=== PATIENT | female | born 1990 | race Caucasian/White ===

== ENCOUNTER 2023-10-22 22:01 | Emergency (ER) | payer OTHER, SELFPAY ==
[2023-10-22 22:02] VITALS: BP 146/94; PULSE 97; RESP 16; TEMP 36.5; O2SAT 99; BMI 43.6
--- NOTE | 2023-10-22 22:15 | RAD_ITS ---
STUDY: X-RAY - UNILATERAL RIBS ( RIGHT ) WITH CHEST REASON FOR EXAM: Female, 33 years old. Pain TECHNIQUE - RIBS: 4 view(s) of the ribs. TECHNIQUE - CHEST: Single PA view of the chest. COMPARISON: None. FINDINGS - RIBS: Normal visualized ribs without a demonstrated fracture. FINDINGS - CHEST: The lungs are clear and underexpanded. There is no demonstrated pleural abnormality. Normal size heart. Normal mediastinum and milan. Normal visualized pulmonary arteries. Normal visualized aortic arch and descending thoracic aorta. Normal visualized thoracic spine. Normal visualized ribs, clavicles, and shoulders. Right upper quadrant surgical clips seen. RAD/Ribs Uni Min 3V w/PA Chest IMPRESSION: RIBS: No evidence of right-sided rib fracture. CHEST: Normal x-ray examination of the chest. Electronically Signed: Josephine Cho MD at 22:54 EST ,
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
[2023-10-22] MEDS: Ibuprofen 400 MG Tablet 800 MG PO (22:19)
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
--- OUTSIDE RECORDS SUMMARY | 2023-10-22 22:27 | XMS RPT_ITS | CCD ---
Author Name Unknown Address [address] [place] [address] Organization [facility] Care Team Providers Care Hand Buffer Name Role Phone INFANTE, SAMER Unavailable Unavailable INFANTE, SAMER Unavailable Unavailable [place] DO, Opal A Primary Care Provider [phone] Theo GARCIA, Keyanna Unavailable [facility], [place] Unavailable [phone] [place] DO, Opal A Primary Care Provider [phone] Theo GARCIA, Keyanna Unavailable [facility], [place] Unavailable [phone] [place] DO, Opal A Primary Care Provider [facility], [place] Unavailable [phone] [place] DO, Opal A Primary Care Provider [phone] Theo GARCIA, Keyanna Unavailable [facility], [place] Unavailable [phone] [facility] [phone] CLOUD, OPAL A Primary Care Unavailable GISSELLE SPRAGUE Referring Unavailabl e CLOUD, OPAL A Referring Unavailable CLOUD, OPAL A Primary Care Unavailable CLOUD, OPAL A Primary Care Unavailable TILLMAN, LAVISA Referring Unavailable ESME CALLEJAS Attending Unavailable CLOUD, OPAL A Primary Care Unavailable CLOUD, OPAL A Primary Care Unavailable ESME CALLEJAS Attending Unavailable CLOUD, OPAL A Primary Care Unavailable CLOUD, OPAL A Primary Care Unavailable GISSELLE SPRAGUE Referring Unavailabl e RUBA GONZALEZ Attending Unavailable CLOUD, OPAL A Primary Care Unavailable KATHY FRANCO Referring Unavailable CLOUD, OPAL A Primary Care Unavailable RUBA GONZALEZ Attending Unavailable CLOUD, OPAL A Primary Care Unavailable TILLMAN, LAVISA Referring Unavailable TILLMAN, LAVISA Attending Unavailable CLOUD, OPAL A Primary Care Unavailable MURRAY, JIHAD Attending Unavailable CLOUD, OPAL A Primary Care Unavailable CLOUD, OPAL A Primary Care Unavailable GISSELLE SPRAGUE S Attending Unavailabl e CLOUD, OPAL A Primary Care Unavailable BRITTA, ESME Referring Unavailable CLOUD, OPAL A Primary Care Unavailable BRITTA, ESME Referring Unavailable BRITTA, ESME Attending Unavailable CLOUD, OPAL A Primary Care Unavailable CLOUD, OPAL A Primary Care Unavailable KATHY FRANCO Referring Unavailable CLOUD, OPAL A Primary Care Unavailable CARLOS, MOHAMED M Referring Unavailable CLOUD, OPAL A Primary Care Unavailable EUGENE, CHRISTIANA Esquivel Attending Unavailable JONATHON, PAULA Referring Unavailable CLOUD, OPAL A Primary Care Unavailable CLOUD, OPAL A Attending Unavailable CLOUD, OPAL A Primary Care Unavailable AINSLEY ROJO Attending Unavailable CLOUD, OPAL A Primary Care Unavailable MURRAY, JIHAD Referring Unavailable CLOUD, OPAL A Primary Care Unavailable CARLOS, CARRIEAMED M Referring Unavailable CLOUD, OPAL A Primary Care Unavailable GISSELLE SPRAGUE Referring Unavailabl e CLOUD, OPAL A Primary Care Unavailable CLOUD, OPAL A Attending Unavailable CLOUD, OPAL A Primary Care Unavailable CLOUD, OPAL A Referring Unavailable QUEENER, KATHY Attending Unavailable Medications Current Medications Medication Drug Class(es) Dates Sig (Normalized) Sig (Original) ALPRAZolam 0.5 mg oral tablet (20 sources) Benzodiazepine Start: 04-12-2023 End: 07-11-2023 take 1 tablet by mouth twice daily as needed ALPRAZolam (XANAX) 0.5 mg tablet Indications: JONATHAN (generalized anxiety disorder) Take 1 tablet by mouth twice daily as needed for up to 90 days. 60 tablet 2 04/12/2023 07/11/2023 Active Completed/Discontinued Medications Medication Drug Class(es) Dates Sig (Normalized) Sig (Original) [id number] 200 actuat albuterol 0.09 mg/actuat metered dose inhaler (20 sources) beta2-Adrenergic Agonist Start: 08-31-2022 take 2 puff(s) by inhalation every four hours as needed albuterol HFA (PROAIR HFA) 90 mcg/actuation inhaler Inhale 2 Puffs as instructed every 4 hours as needed. 18 g 2 08/31/2022 Active Problems Active Problems Problem Classification Problem Date Documented Date Episodic/Chronic Anxiety disorders (20 sources) Mixed anxiety and depressive disorder; Translations: [Anxiety disorder, unspecified] Onset: 08-31-2022 Chronic Asthma (20 sources) Asthma; Translations: [Unspecified asthma, uncomplicated] Onset: 08-06-2013 05-11-2020 Chronic Cardiac dysrhythmias (2 sources) Inappropriate sinus tachycardia; Translations: [Inappropriate sinus tachycardia] Onset: 09-07-2023 07-06-2023 Chronic Diabetes mellitus with complications (7 sources) Type 2 diabetes mellitus; Translations: [Type 2 diabetes mellitus with hyperglycemia] Onset: 06-15-2023 Chronic Diabetes mellitus without complication (20 sources) Diabetes mellitus type 2 without retinopathy; Translations: [Type 2 diabetes mellitus without complications] Onset: 12-18-2013 12-22-2020 Chronic Disorders of lipid metabolism (7 sources) Mixed hyperlipidemia; Translations: [Mixed hyperlipidemia] Chronic Disorders usually diagnosed in infancy, childhood, or adolescence (20 sources) Attention deficit hyperactivity disorder, predominantly inattentive type; Translations: [Other specified behavioral and emotional disorders with onset usually occurring in childhood and adolescence] Onset: 08-31-2022 Chronic Headache; including migraine (3 sources) New daily persistent headache; Translations: [New daily persistent headache (NDPH)] Onset: 08-31-2022 Chronic Headache; including migraine (2 sources) Headache; Translations: [Headaches] Episodic Hepatitis (20 sources) Nonalcoholic steatohepatitis; Translations: [Nonalcoholic steatohepatitis (TINAJERO)] 02-18-2016 Chronic Immunizations and screening for infectious disease (1 source) Patient encounter status; Translations: [Encounter for immunization] Episodic Menstrual disorders (1 source) Menorrhagia; Translations: [Excessive and frequent menstruation with regular cycle] Chronic Mood disorders (20 sources) Moderate major depression, single episode; Translations: [Major depressive disorder, single episode, moderate] Onset: 08-31-2022 Chronic Nutritional deficiencies (20 sources) Vitamin D deficiency; Translations: [Vitamin D deficiency, unspecified] Onset: 11-27-2017 11-27-2017 Chronic Other bone disease and musculoskeletal deformities (1 source) Chondromalacia; Translations: [Chondromalacia, right knee] Episodic Other connective tissue disease (1 source) Pain in limb; Translations: [Pain in unspecified limb] 05-11-2023 Episodic Other connective tissue disease (2 sources) Pain in right foot; Translations: [Foot pain, right] Onset: 08-01-2023 Episodic Other connective tissue disease (1 source) Pain in right foot; Translations: [Pain in right foot] 08-28-2023 Episodic Other connective tissue disease (1 source) Plantar fasciitis; Translations: [Plantar fascial fibromatosis] 08-28-2023 Episodic Other connective tissue disease (1 source) Deformity of lower limb; Translations: [Contracture of muscle, right lower leg] 08-28-2023 Episodic Other connective tissue disease (1 source) Plantar fascial fibromatosis; Translations: [Plantar fasciitis] Onset: 09-12-2023 Episodic Other endocrine disorders (20 sources) Polycystic ovary syndrome; Translations: [Polycystic ovarian syndrome] Onset: 08-15-2011 08-01-2019 Chronic Other lower respiratory disease (1 source) Snoring; Translations: [Snoring] 09-21-2023 Episodic Other nervous system disorders (1 source) Neuropathy; Translations: [Polyneuropathy, unspecified] 05-11-2023 Chronic Other nervous system disorders (1 source) Polyneuropathy, unspecified; Translations: [Neuropathy] Onset: 04-25-2023 Chronic Other nervous system disorders (2 sources) Skin sensation disturbance; Translations: [Unspecified disturbances of skin sensation] Episodic Other nervous system disorders (1 source) Allodynia; Translations: [Other disturbances of skin sensation] Episodic Other non-traumatic joint disorders (1 source) Pain in right knee; Translations: [Pain in joint, lower leg] 10-04-2021 Episodic Other nutritional; endocrine; and metabolic disorders (20 sources) Body mass index 40+ - severely obese; Translations: [Morbid (severe) obesity due to excess calories] Onset: 05-04-2017 08-01-2019 Chronic Other nutritional; endocrine; and metabolic disorders (2 sources) Hypomagnesemia; Translations: [Hypomagnesemia] Chronic Other nutritional; endocrine; and metabolic disorders (1 source) Morbid (severe) obesity due to excess calories; Translations: [Severe obesity (BMI >= 40) ([facility])] Onset: 08-01-2019 Chronic Other skin disorders (1 source) Skin lesion; Translations: [Disorder of the skin and subcutaneous tissue, unspecified] Episodic Residual codes; unclassified (20 sources) Obstructive sleep apnea syndrome; Translations: [Obstructive sleep apnea (adult) (pediatric)] Onset: 11-09-2015 11-09-2015 Chronic Residual codes; unclassified (1 source) Obstructive sleep apnea (adult) (pediatric); Translations: [[facility] (obstructive sleep apnea)] Onset: 11-09-2015 Chronic Unclassified (1 source) Unknown / UNK(Unknown) Onset: 09-05-2017 Past or Other Problems Problem Classification Problem Date Documented Date Episodic/Chronic Blindness and vision defects (20 sources) Bilateral myopia of eyes; Translations: [Myopia, bilateral] Onset: 12-13-2018 12-13-2018 Episodic Cardiac dysrhythmias (18 sources) Inappropriate sinus tachycardia; Translations: [Tachycardia, unspecified] Onset: 01-02-2023 Episodic Conditions associated with dizziness or vertigo (20 sources) Dizziness; Translations: [Dizziness and giddiness] Onset: 11-01-2021 11-01-2021 Episodic Nonspecific chest pain (11 sources) Chest discomfort; Translations: [Other chest pain] Onset: 07-06-2023 07-06-2023 Episodic Other aftercare (20 sources) Long-term current use of insulin; Translations: [[facility] (current) use of insulin] Onset: 12-22-2020 12-22-2020 Episodic Other aftercare (1 source) [facility] (current) use of insulin; Translations: [Type 2 diabetes mellitus with hyperglycemia, with long-term current use of insulin (HCC)] Onset: 06-15-2023 Episodic Other connective tissue disease (20 sources) Spasm; Translations: [Other muscle spasm] Onset: 02-01-2021 02-01-2021 Episodic Other hematologic conditions (20 sources) Microcytosis; Translations: [Other abnormality of red blood cells] Onset: 08-15-2011 11-01-2017 Episodic Other nervous system disorders (1 source) Unspecified disturbances of skin sensation; Translations: [Abnormal sensation of upper extremity] Onset: 04-25-2023 Episodic Other nervous system disorders (1 source) Other disturbances of skin sensation; Translations: [Allodynia] Onset: 04-25-2023 Episodic Ovarian cyst (20 sources) Complex cyst of left ovary; Translations: [Other ovarian cyst, left side] Onset: 08-10-2022 Episodic Residual codes; unclassified (20 sources) Family history of polyp of colon; Translations: [Family history of colonic polyps] Onset: 05-11-2020 05-11-2020 Episodic Results Test Name Value Interpretation Reference Range Facil ity Vital Signs Date Time Vital Sign Value Performing Clinician Alexander ervin 08-28-2023 14:15-0500 Body weight 135.17 kg Ruba Gonzalez SCRUMMASTER.FACILITIES ADMINISTRATOR Work Phone: [facility] 07-06-2023 08:24-0400 Body height 176.5 cm Varghese Murray MD Work Phone: [facility] 07-06-2023 08:24-0400 Body weight 129.55 kg Varghese Murray MD Work Phone: [facility] 07-06-2023 08:24-0400 Diastolic blood pressure 80 mm[Hg] Varghese Murray MD Work Phone: [facility] 07-06-2023 08:24-0400 Heart rate 76 /min Varghese Murray MD Work Phone: [facility] 07-06-2023 08:24-0400 SaO2% (BldA) [Mass fraction] 97 % Varghese Murray MD Work Phone: [facility] 07-06-2023 08:24-0400 Systolic blood pressure 116 mm[Hg] Varghese Murray MD Work Phone: [facility] 06-15-2023 08:56-0400 Body weight 127.01 kg Esme Callejas SCRUMMASTER.FACILITIES ADMINISTRATOR Work Phone: [facility] 06-15-2023 08:56-0400 Diastolic blood pressure 70 mm[Hg] Esme Callejas SCRUMMASTER.FACILITIES ADMINISTRATOR Work Phone: [facility] 06-15-2023 08:56-0400 Heart rate 72 /min Esme Callejas SCRUMMASTER.FACILITIES ADMINISTRATOR Work Phone: [facility] 06-15-2023 08:56-0400 Systolic blood pressure 102 mm[Hg] Esme Callejas SCRUMMASTER.FACILITIES ADMINISTRATOR Work Phone: [facility] 01-31-2023 07:40-0400 Body height 176.5 cm Esme Britta SCRUMMASTER.FACILITIES ADMINISTRATOR Work Phone: [facility] 01-31-2023 07:40-0400 Body weight 129.73 kg Esme Callejas SCRUMMASTER.FACILITIES ADMINISTRATOR Work Phone: [facility] 01-31-2023 07:40-0400 Diastolic blood pressure 74 mm[Hg] Esme Britta SCRUMMASTER.FACILITIES ADMINISTRATOR Work Phone: [facility] 01-31-2023 07:40-0400 Heart rate 76 /min Esme Britta SCRUMMASTER.FACILITIES ADMINISTRATOR Work Phone: [facility] 01-31-2023 07:40-0400 Systolic blood pressure 114 mm[Hg] Esme Britta SCRUMMASTER.FACILITIES ADMINISTRATOR Work Phone: [facility] 01-02-2023 08:10-0400 Body weight 128.82 kg Lavjuanito Tillman SCRUMMASTER.FACILITIES ADMINISTRATOR Work Phone: [facility] 01-02-2023 08:10-0400 Diastolic blood pressure 74 mm[Hg] Lavisa Tillman SCRUMMASTER.FACILITIES ADMINISTRATOR Work Phone: [facility] 01-02-2023 08:10-0400 Heart rate 89 /min Douglasisa Tillman SCRUMMASTER.FACILITIES ADMINISTRATOR Work Phone: [facility] 01-02-2023 08:10-0400 SaO2% (BldA) [Mass fraction] 98 % Lavisa Tillman SCRUMMASTER.FACILITIES ADMINISTRATOR Work Phone: [facility] 01-02-2023 08:10-0400 Systolic blood pressure 118 mm[Hg] Lavisa Tillman SCRUMMASTER.FACILITIES ADMINISTRATOR Work Phone: [facility] 11-29-2022 10:01-0500 Body weight 128.19 kg Opal Gasconade DO Work Phone: [facility] 11-29-2022 10:01-0500 Diastolic blood pressure 73 mm[Hg] Opal Gasconade DO Work Phone: [facility] 11-29-2022 10:01-0500 Heart rate 78 /min Opal Gas[place]ade DO Work Phone: [facility] 11-29-2022 10:01-0500 Respiratory rate 16 /min Opal Gasconade DO Work Phone: [facility] 11-29-2022 10:01-0500 Systolic blood pressure 110 mm[Hg] Opal Gasconade DO Work Phone: [facility] 11-01-2022 07:38-0500 Body weight 131.54 kg Esme Callejas SCRUMMASTER.FACILITIES ADMINISTRATOR Work Phone: [facility] 11-01-2022 07:38-0500 Diastolic blood pressure 70 mm[Hg] Esme Callejas SCRUMMASTER.FACILITIES ADMINISTRATOR Work Phone: [facility] 11-01-2022 07:38-0500 Heart rate 81 /min Esme Callejas SCRUMMASTER.FACILITIES ADMINISTRATOR Work Phone: [facility] 11-01-2022 07:38-0500 Respiratory rate 18 /min Esme Callejas SCRUMMASTER.FACILITIES ADMINISTRATOR Work Phone: [facility] 11-01-2022 07:38-0500 SaO2% (BldA) [Mass fraction] 97 % Esme Callejas SCRUMMASTER.FACILITIES ADMINISTRATOR Work Phone: [facility] 11-01-2022 07:38-0500 Systolic blood pressure 118 mm[Hg] Esme Callejas SCRUMMASTER.FACILITIES ADMINISTRATOR Work Phone: [facility] 08-31-2022 09:27-0500 Body weight 128.87 kg Opal Gasconade DO Work Phone: [facility] 08-31-2022 09:27-0500 Diastolic blood pressure 87 mm[Hg] Opal Gasconade DO Work Phone: [facility] 08-31-2022 09:27-0500 Heart rate 89 /min Opal Gasconade DO Work Phone: [facility] 08-31-2022 09:27-0500 Respiratory rate 16 /min Opal Gasconade DO Work Phone: [facility] 08-31-2022 09:27-0500 Systolic blood pressure 122 mm[Hg] Opal Gasconade DO Work Phone: [facility] 07-18-2022 19:37-0400 Body weight 131.77 kg Opal Gasconade DO Work Phone: [facility] 07-18-2022 19:37-0400 Diastolic blood pressure 87 mm[Hg] Opal Gasconade DO Work Phone: [facility] 07-18-2022 19:37-0400 Heart rate 83 /min Opal Gasconade DO Work Phone: [facility] 07-18-2022 19:37-0400 Respiratory rate 16 /min Opal Gasconade DO Work Phone: [facility] 07-18-2022 19:37-0400 Systolic blood pressure 127 mm[Hg] Opal Gasconade DO Work Phone: [facility] 07-12-2022 07:49-0400 Body weight 128.82 kg Esme Britta SCRUMMASTER.FACILITIES ADMINISTRATOR Work Phone: [facility] 07-12-2022 07:49-0400 Diastolic blood pressure 80 mm[Hg] Esme Britta SCRUMMASTER.FACILITIES ADMINISTRATOR Work Phone: [facility] 07-12-2022 07:49-0400 Heart rate 68 /min Esme Britta SCRUMMASTER.FACILITIES ADMINISTRATOR Work Phone: [facility] 07-12-2022 07:49-0400 Systolic blood pressure 110 mm[Hg] Esme Britta SCRUMMASTER.FACILITIES ADMINISTRATOR Work Phone: [facility] 06-29-2022 08:05-0400 Body height 177.8 cm Opal Gasconade DO Work Phone: [facility] 06-29-2022 08:05-0400 Body weight 127.91 kg Opal Gasconade DO Work Phone: [facility] 06-29-2022 08:05-0400 Diastolic blood pressure 83 mm[Hg] Opal Gasconade DO Work Phone: [facility] 06-29-2022 08:05-0400 Heart rate 73 /min Opal Gasconade DO Work Phone: [facility] 06-29-2022 08:05-0400 Systolic blood pressure 120 mm[Hg] Opal Gasconade DO Work Phone: [facility] 05-26-2022 15:14-0400 Body temperature 97.59 [degF] Gisselle Walker PA-C Work Phone: [facility] 05-26-2022 15:14-0400 Diastolic blood pressure 76 mm[Hg] Gisselle Walker PA-C Work Phone: [facility] 05-26-2022 15:14-0400 Heart rate 95 /min Gisselle Walker PA-C Work Phone: [facility] 05-26-2022 15:14-0400 Systolic blood pressure 103 mm[Hg] Gisselle Walker PA-C Work Phone: [facility] 12-27-2021 16:22-0400 Body weight 129.28 kg Opal Gasconade DO Work Phone: [facility] 12-27-2021 16:22-0400 Diastolic blood pressure 82 mm[Hg] Opal Gasconade DO Work Phone: [facility] 12-27-2021 16:22-0400 Heart rate 76 /min Opal Gasconade DO Work Phone: [facility] 12-27-2021 16:22-0400 Systolic blood pressure 124 mm[Hg] Opal Gasconade DO Work Phone: [facility] Encounters Encounter Date Encounter Type Care Provider Facility Start: 10-09-2023 End: 10-09-2023 ambulatory OPAL A CLOUD Facility:[facility] Start: 09-21-2023 Orders Only Gisselle dickerson PA-C Work Phone: [facility] Procedures Date Procedure Procedure Detail Performing Clinician Start: 05-11-2023 Nerve conduction milind dies 5-6 studies Kathy LAZO-C Work Phone: Start: 01-31-2023 Hemoglobin A1c/Hemoglobin.total in Blood Esme Callejas APRN.FACILITIES ADMINISTRATOR Work Phone: Start: 11-01-2022 Us pelvic nonobstetr ic real-time image complete Paula Chappell MD Work Phone: Start: 11-01-2022 Hemoglobin A1c/Hemoglobin.total in Blood Esme Callejas APRN.FACILITIES ADMINISTRATOR Work Phone: Start: 08-31-2022 Mri brain brain stem w/o w/contrast material Opal A Gasconade DO Work Phone: Start: 08-09-2022 Us pelvic nonobstetr ic real-time image complete Paula Chappell MD Work Phone: Start: 06-29-2022 INFLUENZA VACCINE QUADRIVALENT 6 MO - 64 YRS IM Opal A Ecoark DO Work Phone: Start: 10-04-2021 Radiologic exam knee complete 4/more views Tabatha Hogan SCRUMMASTER.FACILITIES ADMINISTRATOR Work Phone: Start: 07-09-2021 Adult depression scr eening assessment Esme Callejas SCRUMMASTER.FACILITIES ADMINISTRATOR Work Phone: Plan of Treatment Date Care Activity Detail Author Start: 2031 PAP TESTING PAP TESTING [facility] Start: 09-09-2024 HPV TESTING HPV TESTING [facility] Start: 09-09-2024 PAP TESTING PAP TESTING [facility] Start: 09-09-2024 Screening for malign ant neoplasm of cervix [facility] Start: 08-01-2024 Annual PCP Team [employer] vincenzo Disease Visit Annual PCP Team Chronic Disease Visit [facility] Start: 06-18-2024 Urine microalbumin profile [facility] Start: 06-15-2024 Hepatitis B screening Urine Al bumin:Creatinine Ratio [facility] Start: 06-15-2024 Hepatitis B surface antibody level LDL Cholesterol [facility] Start: 04-12-2024 ANNUAL PCP TEAM [employer]NER VINCENZO DISEASE VISIT ANNUAL PCP TEAM CHRONIC DISEASE VISIT [facility] Start: 01-03-2024 Hepatitis B surface antibody level LDL CHOLESTEROL [facility] Start: 12-14-2023 Hemoglobin A1c measurement HbA1C [facility] Start: 12-14-2023 Hemoglobin A1c/Hemoglobin.total in Blood HbA1C [facility] Start: 12-03-2023 Glaucoma screening Dilated Retinal E xam [facility] Start: 12-03-2023 Hepatitis C antibody , confirmatory test DILATED RETINAL EXAM [facility] Start: 11-29-2023 ANNUAL PCP TEAM [employer]NER VINCENZO DISEASE VISIT ANNUAL PCP TEAM CHRONIC DISEASE VISIT [facility] Start: 08-31-2023 ANNUAL PCP TEAM [employer]NER VINCENZO DISEASE VISIT ANNUAL PCP TEAM CHRONIC DISEASE VISIT [facility] Start: 07-18-2023 ANNUAL PCP TEAM [employer]NER VINCENZO DISEASE VISIT ANNUAL PCP TEAM CHRONIC DISEASE VISIT [facility] Start: 07-18-2023 COVID-19 VACCINE (4 - Booster for Moderna series) COVID-19 VACCINE (4 - Booster for Moderna series) [facility] Immunizations Immunization Date Immunization Notes Care Provider Adolfo mijares 08-01-2023 influenza, injectabl e, quadrivalent, contains preservative Piyush Vital MD Work Phone: [facility] 06-29-2022 influenza, injectabl e, quadrivalent, contains preservative Opal Dereck ULLOA Work Phone: [facility] 06-29-2022 influenza virus vacc ine, unspecified formulation Esme Britta SCRUMMASTER.FACILITIES ADMINISTRATOR Work Phone: [facility] 06-04-2021 influenza, injectabl e, quadrivalent, contains preservative Esme Britta SCRUMMASTER.FACILITIES ADMINISTRATOR Work Phone: [facility] 12-25-2020 COVID-19 vaccine, fu ll dose (MODERNA) Esme Britta SCRUMMASTER.FACILITIES ADMINISTRATOR Work Phone: [facility] 11-27-2020 COVID-19 vaccine, fu ll dose (MODERNA) Esme Britta SCRUMMASTER.FACILITIES ADMINISTRATOR Work Phone: [facility] Work Phone: 07-29-2020 influenza, injectabl e, quadrivalent, contains preservative Esme Britta SCRUMMASTER.FACILITIES ADMINISTRATOR Work Phone: [facility] 06-24-2019 influenza, injectabl e, quadrivalent, contains preservative Esme Britta SCRUMMASTER.FACILITIES ADMINISTRATOR Work Phone: [facility] 10-29-2018 influenza, injectabl e, quadrivalent, contains preservative Esme Britta SCRUMMASTER.FACILITIES ADMINISTRATOR Work Phone: [facility] 06-14-2018 pneumococcal polysaccharide vaccine, 23 valent Esme Britta SCRUMMASTER.FACILITIES ADMINISTRATOR Work Phone: [facility] 07-17-2017 influenza, injectabl e, quadrivalent, contains preservative Esme Britta SCRUMMASTER.FACILITIES ADMINISTRATOR Work Phone: [facility] 07-14-2016 influenza, injectabl e, quadrivalent, contains preservative Esme Britta SCRUMMASTER.FACILITIES ADMINISTRATOR Work Phone: [facility] 07-14-2016 influenza, seasonal, injectable Esme Britta SCRUMMASTER.FACILITIES ADMINISTRATOR Work Phone: [facility] 06-23-2015 influenza, injectabl e, quadrivalent, contains preservative Esme Britta SCRUMMASTER.FACILITIES ADMINISTRATOR Work Phone: [facility] 06-23-2015 influenza, seasonal, injectable Esme Britta SCRUMMASTER.FACILITIES ADMINISTRATOR Work Phone: [facility] 06-18-2014 influenza, seasonal, injectable Esme Britta SCRUMMASTER.[facility] Work Phone: [facility] 06-18-2014 tetanus toxoid, redu samuel diphtheria toxoid, and acellular pertussis vaccine, adsorbed Esme Britta SCRUMMASTER.FACILITIES ADMINISTRATOR Work Phone: [facility] 08-06-2013 influenza virus vacc ine, whole virus Esme Callejas SCRUMMASTER.FACILITIES ADMINISTRATOR Work Phone: [facility] 09-08-2009 novel influenza-H1N1 -09, preservative-free, injectable Esme Britta SCRUMMASTER.[facility] Work Phone: [facility] Payers Date Payer Category Payer Medicaid [id number] 2022 Private Health Insurance HERACLIO ARMENDARIZ [facility] [id number] 2022-Present [phone] [facility] [id number] [place] [id number] Open Access [id number] 2022 Private Health Insurance [id number] 2021 Unknown JEREMY ADHIKARI PPO [id number] 2021-Present [phone] [address] [place] [address] PPO [id number] 2021 Unknown [id number] 2021 Unknown [id number] 2018 Medicaid [employer] [id number] 2018-Present [phone] [address] [place] [address] Medicaid [id number] 2018 Medicaid [id number] 2018 Medicaid [id number] Social History Date Type Detail Facility Start: 06-29-2022 Tobacco smoking stat [facility] Never smoked tobacco [facility] Start: 12-27-2021 End: 08-01-2023 Alcohol intake Current drinker of alcohol (finding) [facility] Start: 12-18-2020 History SDOH Alcohol Comment rare. about 5x per year [facility] Start: 1990 Sex Assigned At Not on file [facility] Start: 12-31-2021 End: 05-26-2022 Exposure to SARS-CoV-2 (event) Unable to assess [facility] Start: 06-29-2022 Tobacco use and exposure Smoke less tobacco non-user [facility] Start: 09-03-2021 End: 08-31-2022 Exposure to SARS-CoV-2 (event) Not sure [facility] Start: 01-31-2023 End: 03-14-2023 [facility] of [facility] Work Phone: Start: 01-31-2023 End: 03-14-2023 Tobacco use panel [facility] Work Phone: Adult Depression Scr eening Assessment 0 [facility] Work Phone: Do you belong to any clubs or organizations such as pentecostalism groups, unions, fraternal or athletic groups, or school groups? No [facility] Are you now , , , , never or living with a partner? [facility] How often to you hav e a drink containing alcohol? 2-4 times a month [facility] How many standard dr inks containing alcohol do you have on a typical day? 1 or 2 [facility] How often do you hav e 6 or more drinks on 1 occasion? Never [facility] How hard is it for y ou to pay for the very basics like food, housing, medical care, and heating Not very hard [facility] Do you feel stress - tense, restless, nervous, or anxious, or unable to sleep at night because your mind is troubled all the time - these days [OSQ] Very much [facility] (I/We) worried [facility] (my/our) food would run out before (I/we) got money to buy more. Never true [facility] Medical Equipment Procedure Code Equipment Code Equipment Origin al Text Equipment Identifier Dates Use as instructe d to test blood sugar twice daily (on insulin) Start: 01-11-2021 Clinical Notes 05-11-2020 to 10-09-2023 Patient InstructionsRuba Gonzalez APRN.CNP - 08/28/2023 2:26 PM Diamond Hernández RN - 08/10/2023 6:14 PM ESTAddendum Note - Gisselle Sprague PA-C - 08/10/2023 1:15 PM EST Note Date & Type Note Facility 10-09-2023 Note HNO ID: [id number] Author: RUBA GONZALEZ APRN.SIRISHA Service: ? Author Type: Nurse Practitioner Type: Progress Notes Filed: 10/10/2023 09:51 Note Text: Juliette Marrufo CHIEF COMPLAINT: Right foot pain HISTORY OF PRESENT ILLNESS: This is a 33 year old female who returns today for plantar fasciitis right foot, she report feeling much improvement, but reported pain after a long day at work IMPRESSION: Plantar fasciitis (primary encounter diagnosis) PLAN: Cont with stretching exercises at home Theragun daily Power step insoles Mobic 15 mg Follow up PRN I spent a total of 30 minutes on the date of the service which included preparing to see the patient, [id number] patient care, obtaining and/or reviewing separately obtained history, performing a medically appropriate examination, and counseling and educating the patient/family/caregiver. Thank you for the opportunity to participate in this patient's care. PHYSICAL EXAMINATION: Right Lower Extremity: grossly intact ROM and strength, no obvious deformity. Right Lower Extremity: Gait Cycle: Normal Yes, Limp: none. Inspection: Alignment: neutral Symmetry: Swelling: no. Redness: no. Ecchymosis: no Palpation: Warmth: no, Tenderness:No ROM: Ankle: wnl Toes: wnl Strength: 5 Stability: Ligamentous instability: no Specialized Tests: negative Neurologic Status: Sensation to all 4 compartments of lower extremity are grossly intact to light touch today in the office. Vascular Status: Posterior Tibial: 2+ Right Dorsalis Pedis: 2+ Right Skin: Normal IMAGING: No imaging was ordered today. This note was partially generated using [employer] voice recognition system, and there may be some incorrect words, spellings, and punctuation that were not noted in checking the note before saving. [facility] Department of Orthopaedics Foot and Ankle Surgery [facility] 09-19-2023 Note HNO ID: [id number] Author: Christiano Butler PT Service: ? Author Type: Physical Therapist Type: Progress Notes Filed: 09/22/2023 8:50 AM Note Text: Episode Visit Count: 2 Therapist That Will Accept/Oversee The Plan Of Care: Christiano Butler Start of Care Date: 09/12/23 Onset Date: 08/28/23 Plan of Care Certification Date: 10/25/21 Next Certification Due Date: 12/24/21 REHABILITATION AND SPORTS THERAPY PHYSICAL THERAPY TREATMENT NOTE ASSESSMENT: Juliette Marrufo tolerated the session with decreased symptoms. She demonstrated improvements in heel pain in the morning. The patient will continue to benefit from ongoing skilled physical therapy to progress toward set goals. PLAN FOR NEXT VISIT: soft tissue mobilization SUBJECTIVE: R foot pain x 2 months. 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 Some improvement Pain: Pain Pain Location: Heel - Right Description: Sore, Sharp OBJECTIVE MEASURES WITH LEVEL OF FUNCTION: LE PROM R Ankle Dorsiflexion: 0 Degrees TREATMENT: Therapeutic Exercise: 1: *pLantar fascia towel stretch x 30 sec 2: *gastroc stretch x 30 sec 3: *soleus stretch x 30 4: step stretch 2 x 30 sec Skilled Intervention: Skilled judgment was used in selection of appropriate interventions. Manual Therapy: Soft Tissue Mobilization: plantar fascia Skilled Intervention: Manual skills to improve joint mobility, ROM, and decrease pain. Utilized anatomy knowledge of the therapist, and assessment of patient's response to intervention. Billing Therapeutic Exercise Treatment Minutes: 30 Manual TherapyTreatment Minutes: 10 Skilled Treatment Time Minutes (timed and untimed codes): 40 Total Session Time (minutes): 40 Session Start Time : 1700 Session Stop Time : 1740 Christiano Butler PT [facility] 09-15-2023 Note HNO ID: [id number] Author: Zeinab Dwyer Service: ? Author Type: ? Type: Progress Notes Filed: 09/15/2023 1:11 PM Note Text: Sleep Study Check-In Documentation Date: September 15, 2023 Name: Juliette Marrufo Comments: HST was returned in working order with all sleep questionnaires Zeinab Dwyer [facility] 09-12-2023 Note HNO ID: [id number] Author: Maxime Saenz Service: ? Author Type: ? Type: Progress Notes Filed: 09/15/2023 1:11 PM Note Text: Nomad# [id number] , date shipped out 09/12/23 [employer] ONLY - [facility]C SENT Tracking mailout: [id number] Tracking return: [id number] [facility] 09-12-2023 Note HNO ID: [id number] Author: Christiano Butler PT Service: ? Author Type: Physical Therapist Type: Progress Notes Filed: 09/12/2023 11:03 AM Note Text: Episode Visit Count: 1 Therapist That Will Accept/Oversee The Plan Of Care: Christiano Butler Start of Care Date: 09/12/23 Onset Date: 08/28/23 Plan of Care Certification Date: 10/25/21 Next Certification Due Date: 12/24/21 Patient Identified by Name and Date of : Yes REHABILITATION AND SPORTS THERAPY PHYSICAL THERAPY EVALUATION PLAN OF CARE: Assessment: Juliette Marrufo presents with chief complaint of heel pain that interferes with walking . She presents with impairments in flexibility and tissue tenderness. PROMIS? (Patient-Reported Outcomes Measurement Information System) scores were reviewed and all domains identified as a rehabilitation concern. Prognosis for therapy is Fair due to: multiple co- morbidities . Radiographs revealed non healed lateral malleolus fx. Do not suspect this is part of her symptomology, but do have concern that it is not healing. Will discuss this with referring provider. She will benefit from skilled therapy services to meet the goals established for this plan of care as noted below. Goals for Episode of Care: created on 09/12/23 through 11/11/23 [place] in home exercise program. Patient will decrease pain to 0/10 with functional activities to allow patient to improve ambulation. Perform walking without pain. Improve flexibility of calf/plantar fascia to 5 degrees DF for normal foot mechanics during walking Patient Goals: resolve pain Planned Interventions, Frequency, and Duration: Current Frequency: 1x every other week Duration: 8 weeks Total Number of Visits Planned: 4 Planned Treatment Interventions: Therapeutic exercise (74516), Manual therapy (66443) PLAN FOR NEXT VISIT: trial soft tissue work Patient demonstrates good understanding of plan of care and treatment. The above goals and plan of care were discussed and agreed upon by patient/family. SUBJECTIVE: R foot pain x 2 months. 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 5 points is clinically meaningfully difference Percentiles provide an indication of how the patient's score ranks in relation to the general population. Higher percentile rankings indicate better function/quality of life. 50th percentile is the average of the general population and indicates half of respondents had a worse score. OBJECTIVE MEASURES WITH LEVEL OF FUNCTION: Posture / Alignment R LE Anatomical Alignment Weight-Bearing: R Average arch height L LE Anatomical Alignment Weight-Bearing: L Average arch height Ankle Observations R Ankle Palpation Tenderness: Plantar fascia LE AROM R Ankle Dorsiflexion: -12 Degrees R 1st MP Extension: (WNL) LE PROM R Ankle Dorsiflexion: -10 Degrees Education: Education Learning/educational needs: Home exercise program, Plan of Care TREATMENT: PT Treatment Interventions: Therapeutic Exercise Evaluation Therapeutic Exercise: 1: *pLantar fascia towel stretch x 30 sec 2: *gastroc stretch x 30 sec 3: *soleus stretch x 30 4: self massage-plantar fascia 5: self massage-gstroc soleus Skilled Intervention: Patient was educated in proper exercise technique and purpose for exercises. Reviewed and educated patient on additions/changes for home exercise program as above (*). Provided written instruction for home exercise program to facilitate proper performance and compliance. Patient education as noted. Billing * Evaluation Low Complexity: 1 Unit Therapeutic Exercise Treatment Minutes: 20 Skilled Treatment Time Minutes (timed and untimed codes): 35 Total Session Time (minutes): 35 Session Start Time : 1020 Session Stop Time : 1055 Christiano Butler, PT [facility] 09-11-2023 Note HNO ID: [id number] Author: Darnell Saxena III, PhD Service: ? Author Type: Physician Type: Progress Notes Filed: 09/15/2023 1:11 PM Note Text: September 11, 2023 Standing PSG Orders signed in the last 90 days None Future PSG Orders signed in the last 90 days Ordered Auth. provider PAP TITRATION PSG (CPAP, BIPAP, ASV) [[id number]] 08/01/23 Gisselle Sprague PA-C Assoc. diagnoses: KAISER (obstructive sleep apnea) [G47.33] Q: Indications: A: Obstructive sleep apnea Q: STOP-BANG conditions - Select All That Apply: A: BMI > 35 kg/m2 A2: SNORING that is loud or disruptive A3: TIREDNESS, fatigue or sleepiness during the day Q: Special Needs (e.g.behavior, non-ambulatory, >450 lbs)?: A: No Q: Prior PAP (CPAP or Bilevel PAP) Use?: A: No Q: Sleep History: A: Sleep apnea Q: Current use of supplemental oxygen during sleep period?: A: No Q: Add supplemental oxygen if needed per sleep lab policy?: A: Yes HOME SLEEP APNEA TEST (HSAT) [[id number]] 08/09/23 Gisselle Sprague PA-C Assoc. diagnoses: KAISRE (obstructive sleep apnea) [G47.33] Q: Indications: A: Obstructive sleep apnea Q: STOP-BANG conditions - Select All That Apply: A: BMI > 35 kg/m2 A2: SNORING that is loud or disruptive A3: TIREDNESS, fatigue or sleepiness during the day Q: Current use of supplemental oxygen during sleep period?: A: No All Prior Sleep Studies (past 365 days) Some values may be hidden. Unless noted otherwise, only the newest values recorded on each date are displayed. Sleep Studies HOME SLEEP APNEA TEST (HSAT) Future Expected: Expires: 08/08/24 PAP TITRATION PSG (CPAP, BIPAP, ASV) Future Expected: Expires: 08/30/24 BMI Readings from Last 2 Encounters: 08/28/23 : 42.76 kg/m? 08/01/23 : 42.04 kg/m? PAST MEDICAL HISTORY Diagnosis Date Anxiety and depression Asthma Complex cyst of left ovary 08/10/2022 Diabetes mellitus (HCC) H/O cold sores TINAJERO (nonalcoholic steatohepatitis) KAISER (obstructive sleep apnea) PCOS (polycystic ovarian syndrome) The medical record was reviewed to determine if the proposed sleep study conforms to the AASM Practice Parameters for the Indications for Polysomnography and Related Procedures, or if the sleep study is indicated for other reasons. Indications for study: Repeat Sleep Testing KAISER previously diagnosed, needs repeat diagnostic Sleep study to be performed: Home Sleep Apnea Test (HSAT) Special instructions: None-follow laboratory protocol Angélica Ortez Sleep [facility] Staff Note: I have read the above protocol, edited as needed, and agree to the plan. Darnell Saxena III, PhD 3:30 PM, 09/11/2023 [facility] 08-28-2023 Note HNO ID: [id number] Author: Ruba Gonzalez APRN.SIRISHA Service: ? Author Type: Nurse Practitioner Type: Progress Notes Filed: 08/28/2023 2:45 PM Note Text: PROVIDER: Ruba Gonzalez APRN.FACILITIES ADMINISTRATOR CC: New and Pain of the Right Foot Surgery Date: N/A ASSESSMENT: (M72.2) Plantar fasciitis (primary encounter diagnosis) (M79.671) Foot pain, right (M62.461) Gastrocnemius equinus of right lower extremity HPI: This is a 33 year old female who is here for evaluation of right plantar foot pain. The patient reported pain that started 2 months ago and gradually has been getting worse. She reported pain is plantar, bad when she first wake up and it gets worse as the day goes by. She tries night splint but she was unable to tolerate. Pain is plantar, at the insertion site, associated with plantar fascitis PLAN: Discussed options with the patient and recommended: Today I had a long discussion with Mrs. Marrufo regarding the nature of her condition. I reviewed conservative and surgical treatment options. At this time, the patient wishes to purse non-operative management. This includes: - Plantar Fascia Specific Stretch as demonstrated in office. The stretch position should be held for 10 seconds and repeated 10 times. The timing of when this is performed is important. It should be done prior to the first step in the morning and during the day before standing after prolonged inactivity. Patients should perform the stretch at least 4-5 times during the day. - Calf stretching as demonstrated in office. This should be performed for at least 3 minutes daily (ex: Six sets of 30 seconds per side). It is important that the stretch be done daily. - Roll your foot over a frozen golf or tennis ball - Physical therapy program to include: soft tissue mobilizations, calf stretching, plantar specific stretching, oversight of home exercise program, possible. - A stiff sole shoe with a slight heel and rocker-bottom contour to absorb shock on impact and help transfer weight during walking. - Cushioned shock absorbing over-the counter orthotics. - Activity modification in an effort to limit standing and walking. - Plantar Fascia Night Splint: A night splint, which keeps the ankle in a neutral position (right angle) while the patient sleeps, can be very helpful in alleviating the significant morning symptoms. This splint is worn nightly for 1-3 weeks, until the cycle of pain is broken. Furthermore, this splinting can be reinstituted for a short period of time if symptoms recur. - Conservative use of Anti-Inflammatory Medication (NSAIDs) and/or Acetaminophen on an as needed basis (if no contraindications exist). - Weight Loss I would expect this program to play out over the course of the next 6-8 weeks. Return to clinic: 6 weeks X-rays at next visit: no Detailed instructions were reviewed with the patient and all questions were answered in detail. Patient voiced understanding and compliance with the above plan. We discussed emergent need to return to the express care or go to the emergency department. We discussed red flags associated with this condition and emergent treatment if they present. I spent a total of 30 minutes on the date of the service which included preparing to see the patient, [id number] patient care, obtaining and/or reviewing separately obtained history, performing a medically appropriate examination, counseling and educating the patient/family/caregiver, ordering medications, tests, or procedures, communicating with other HCPs (not separately reported), independently interpreting results (not separately reported), communicating results to the patient/family/caregiver, and care coordination (not separately reported). PAIN EVALUATION 08/28/2023 1413 Pain Level: 5 Pain Location: Foot-Right Description: Aching;Sharp;Sore;Stabbing Duration Amount of Time: 2 Duration Units: Months Frequency: Continuous Intervention/Comfort measure: -- none PHYSICAL FINDINGS: Vitals: Wt 298 lb (135.2kg) LMP 06/08/2023 Wt 135.2 kg (298 lb) LMP 06/08/2023 (Approximate) BMI 42.76 kg/m? Patient's vitals and nursing notes were reviewed. General appearance: healthy, alert, well hydrated, pleasant, no distress. Cardiovascular: no signs of upper or lower extremity edema Respiratory: no respiratory distress, no audible wheezing, no labored breathing Psychiatric: mood and affect are appropriate Neurologic: Alert and oriented x 3 and Normal speech. MUSCULOSKELETAL EXAMINATION: Gait: antalgic gait Bony Alignment: Hallux valgus present Inspection: Swelling: no. Redness: no. Ecchymosis: no Palpation: plantar fascia pain ROM AND Strength: Dorsiflexion: Limited ROM secondary tightness Plantar flexion: Full A/PROM noted with full muscle strength bilaterally Inversion: Full A/PROM noted with full muscle strength bilaterally. Eversion: Full A/PROM noted with full (more content not included)... [facility] 08-28-2023 Instructions Ruba Gonzalez APRN.FACILITIES ADMINISTRATOR - 08/28/2023 2:29 PM EST - Plantar Fascia Specific Stretch as demonstrated in office. The stretch position should be held for 10 seconds and repeated 10 times. The timing of when this is performed is important. It should be done prior to the first step in the morning and during the day before standing after prolonged inactivity. Patients should perform the stretch at least 4-5 times during the day. - Calf stretching as demonstrated in office. This should be performed for at least 3 minutes daily (ex: Six sets of 30 seconds per side). It is important that the stretch be done daily. - Roll your foot over a frozen golf or tennis ball - Physical therapy program to include: soft tissue mobilizations, calf stretching, plantar specific stretching, oversight of home exercise program, possible. - A stiff sole shoe with a slight heel and rocker-bottom contour to absorb shock on impact and help transfer weight during walking. - Cushioned shock absorbing over-the counter orthotics. - Activity modification in an effort to limit standing and walking. - Plantar Fascia Night Splint: A night splint, which keeps the ankle in a neutral position (right angle) while the patient sleeps, can be very helpful in alleviating the significant morning symptoms. This splint is worn nightly for 1-3 weeks, until the cycle of pain is broken. Furthermore, this splinting can be reinstituted for a short period of time if symptoms recur. - Conservative use of Anti-Inflammatory Medication (NSAIDs) and/or Acetaminophen on an as needed basis (if no contraindications exist). -powerstep inserts- full length and 3/4 length -Second sole [place] or [place] (r [place]) -Foot solutions -wikifolio -[facility] [place] -VSporto -Tennis Shoes: Cory Spann, Abdon Kay, Ha[place], ON Running, Kimberley, [place]ul[place] Women's Dress Shoe: Life stride, Leesa Friaswell Sandals: [place], Dru, Mg, Kimberley, Altagracia Blum [place] I would expect this program to play out over the course of the next 6-8 weeks. documented in this encounter [facility] 08-28-2023 History of Present illness Narrative Images from the original note were not included. PROVIDER: Ruba Gonzalez APRN.FACILITIES ADMINISTRATOR CC: New and Pain of the Right Foot Surgery Date: N/A ASSESSMENT: (M72.2) Plantar fasciitis (primary encounter diagnosis) (M79.671) Foot pain, right (M62.461) Gastrocnemius equinus of right lower extremity HPI: This is a 33 year old female who is here for evaluation of right plantar foot pain. The patient reported pain that started 2 months ago and gradually has been getting worse. She reported pain is plantar, bad when she first wake up and it gets worse as the day goes by. She tries night splint but she was unable to tolerate. Pain is plantar, at the insertion site, associated with plantar fascitis PLAN: Discussed options with the patient and recommended: Today I had a long discussion with Mrs. Marrufo regarding the nature of her condition. I reviewed conservative and surgical treatment options. At this time, the patient wishes to purse non-operative management. This includes: - Plantar Fascia Specific Stretch as demonstrated in office. The stretch position should be held for 10 seconds and repeated 10 times. The timing of when this is performed is important. It should be done prior to the first step in the morning and during the day before standing after prolonged inactivity. Patients should perform the stretch at least 4-5 times during the day. - Calf stretching as demonstrated in office. This should be performed for at least 3 minutes daily (ex: Six sets of 30 seconds per side). It is important that the stretch be done daily. - Roll your foot over a frozen golf or tennis ball - Physical therapy program to include: soft tissue mobilizations, calf stretching, plantar specific stretching, oversight of home exercise program, possible. - A stiff sole shoe with a slight heel and rocker-bottom contour to absorb shock on impact and help transfer weight during walking. - Cushioned shock absorbing over-the counter orthotics. - Activity modification in an effort to limit standing and walking. - Plantar Fascia Night Splint: A night splint, which keeps the ankle in a neutral position (right angle) while the patient sleeps, can be very helpful in alleviating the significant morning symptoms. This splint is worn nightly for 1-3 weeks, until the cycle of pain is broken. Furthermore, this splinting can be reinstituted for a short period of time if symptoms recur. - Conservative use of Anti-Inflammatory Medication (NSAIDs) and/or Acetaminophen on an as needed basis (if no contraindications exist). - Weight Loss I would expect this program to play out over the course of the next 6-8 weeks. Return to clinic: 6 weeks X-rays at next visit: no Detailed instructions were reviewed with the patient and all questions were answered in detail. Patient voiced understanding and compliance with the above plan. We discussed emergent need to return to the express care or go to the emergency department. We discussed red flags associated with this condition and emergent treatment if they present. I spent a total of 30 minutes on the date of the service which included preparing to see the patient, [id number] patient care, obtaining and/or reviewing separately obtained history, performing a medically appropriate examination, counseling and educating the patient/family/caregiver, ordering medications, tests, or procedures, communicating with other HCPs (not separately reported), independently interpreting results (not separately reported), communicating results to the patient/family/caregiver, and care coordination (not separately reported). PAIN EVALUATION 08/28/2023 1413 Pain Level: 5 Pain Location: Foot-Right Description: Aching;Sharp;Sore;Stabbing Duration Amount of Time: 2 Duration Units: Months Frequency: Continuous Intervention/Comfort measure: -- none PHYSICAL FINDINGS: Vitals: Wt 298 lb (135.2kg) LMP 06/08/2023 Wt 135.2 kg (298 lb) LMP 06/08/2023 (Approximate) BMI 42.76 kg/m Patient's vitals and nursing notes were reviewed. General appearance: healthy, alert, well hydrated, pleasant, no distress. Cardiovascular: no signs of upper or lower extremity edema Respiratory: no respiratory distress, no audible wheezing, no labored breathing Psychiatric: mood and affect are appropriate Neurologic: Alert and oriented x 3 and Normal speech. MUSCULOSKELETAL EXAMINATION: Gait: antalgic gait Bony Alignment: Hallux valgus present Inspection: Swelling: no. Redness: no. Ecchymosis: no Palpation: plantar fascia pain ROM & Strength: Dorsiflexion: Limited ROM secondary tightness Plantar flexion: Full A/PROM noted with full muscle strength bilaterally Inversion: Full A/PROM noted with full muscle strength bilaterally. Eversion: Full A/PROM noted with full muscle strength bilaterally. Skin: Normal. No discoloration, warmth, fluctuance, crepitus, rash, ulcerations or lesions noted. Distal Neurological: Intact to light touch Pulse: 2+ DP and PT. 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 IMAGING: Final results and radiologist's interpretation, available in the [facility] health record. Images were reviewed with the patient/family members in the office today. My personal interpretation of the performed imaging is no acute abnormality. Review of Systems All other systems reviewed and are negative. The following elements were reviewed and are negative except for mentioned above: general body habitus, skin, ENT, pulmonary, cardiac, gastrointestinal, abdominal/, musculoskeletal, endocrine, hematologic and neurologic. 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 (Hcc) Kaiser (Obstructive Sleep Apnea) [place] (Nonalcoholic Steatohepatitis) Severe Obesity (Bmi >= 40) (Hcc) Microcytosis Vitamin D Deficiency Myopia of Both Eyes With Astigmatism Family History of Colonic Polyps Detention Current Use of Insulin (Hcc) Spasm of Muscle Dizziness Complex Cyst of Left Ovary Attention Deficit Disorder (Add) Without Hyperactivity Current Moderate Episode of Major Depressive Disorder (Hcc) Jonathan (Generalized Anxiety Disorder) Chest Discomfort Tachycardia PSH: PAST SURGICAL HISTORY Procedure Laterality Date REMOVAL GALLBLADDER 09/01/2011 FAMILY HX: FAMILY HISTORY Problem Relation Age of Onset No Ocular Disease Maternal Grandfather other (lung cancer) Maternal Grandfather Cervical Cancer Mother No Ocular Disease Mother Psoriasis Mother No Ocular Disease Father other (Lung problem) Father No Ocular Disease Maternal Grandmother No Ocular Disease Paternal Grandmother No Ocular Disease Paternal Grandfather other (Colon polyps) Paternal Uncle SOCIAL: Social History Tobacco Use Smoking status: Never Smokeless tobacco: Never Vaping Use Vaping Use: Never used Substance Use Topics Alcohol use: Yes Comment: rare. about 5x per year Drug use: No ALLERGY: Patient has no known allergies. MEDS: Current Outpatient Medications Medication Sig metoprolol succinate ER (TOPROL XL) 50 mg 24 hr tablet Take 1 tablet by mouth once daily. buPROPion XL (WELLBUTRIN XL) 300 mg 24 hr tablet Take 1 tablet by mouth once daily. empagliflozin (JARDIANCE) 10 mg tablet Take 1 tablet by mouth daily with breakfast. OMNIPOD 5 G6 PODS, GEN 5, crtg Change pod every 48 hours. tirzepatide (MOUNJARO) 10 mg/0.5 mL pen injector Inject 10 mg subcutaneously one time a week. magnesium oxide (MAG-OX) 400 mg (241.3 mg magnesium) tablet Take 1 tablet by mouth twice daily. tranexamic acid (LYSTEDA) 650 mg tablet Take 2 tablets by mouth every 8 hours. during menses for heavy menstrual bleeding. Maximum of 5 days. loratadine (CLARITIN) 10 mg tablet Take 1 tablet by mouth once daily. spironolactone (ALDACTONE) 100 mg tablet Take 1 tablet by mouth once daily. Multivitamin capsule Take 1 capsule by mouth once daily. atorvastatin (LIPITOR) 20 mg tablet Take 1 tablet by mouth once daily omeprazole (PRILOSEC) 20 mg capsule Take 1 capsule by mouth once daily for 14 days. lamoTRIgine (LAMICTAL) 25 mg tablet Take 1 tablet by mouth once daily for 14 days, THEN 2 tablets once daily for 14 days. (Patient taking differently: 2 tablets once daily ) insulin lispro (HUMALOG U-100 INSULIN) 100 unit/mL injection Use with insulin pump up to 120 units daily Blood-Glucose Transmitter (DEXCOM G6 TRANSMITTER) nicky Check glucose 4 times daily. Blood-Glucose Sensor (DEXCOM G6 SENSOR) nicky Check glucose 4 times daily insulin degludec (TRESIBA FLEXTOUCH U-100) 100 unit/mL (3 mL) injection pen Inject 70 Units subcutaneously once daily. (Patient not taking: Reported on 06/15/2023) albuterol HFA (PROAIR HFA) 90 mcg/actuation inhaler Inhale 2 Puffs as instructed every 4 hours as needed. topiramate (TOPAMAX) 25 mg tablet take 1/2 tablet for 2 weeks then increase to a full tablet (Patient taking differently: Take 25 mg by mouth once daily.) ondansetron (ZOFRAN) 4 mg tablet Take 1 tablet by mouth every 8 hours as needed for nausea/vomiting. (Patient not taking: Reported on 04/25/2023) blood sugar diagnostic (ONETOUCH VERIO TEST STRIPS) test strip Use as instructed to test blood sugar twice daily (on insulin) Lancets lancets Use as instructed to test blood sugar twice daily (on insulin) fluconazole (DIFLUCAN) 150 mg tablet Take 1 tablet PO q week x 6 months (Patient not taking: Reported on 06/15/2023) No current facility-administered medications for this visit. I have confirmed and edited as necessary, the PFSH and ROS obtained by others. This note was partially generated using [employer] voice recognition system, and there may be some incorrect words, spellings, and punctuation that were not noted in checking the note before saving. Ruba Gonzalez APRN.[facility], [facility] Department of Orthopaedics Foot and Ankle Surgery documented in this encounter [facility] 08-10-2023 Note HNO ID: [id number] Author: Diamond Iyer RN Service: ? Author Type: Registered Nurse Type: Progress Notes Filed: 08/10/2023 6:15 PM Note Text: EVENT MONITOR DISPOSABLE PATCH INSTRUCTIONS Patient Name: Juliette Chavez [facility] Number: [id number] Skin prepped and cleansed with alcohol Patch secured to prepped area Monitor Activated Serial #: [id number] Patient Instructed: Prescribed order timeframe Bathing guidelines Usage of event button and diary documentation Return of monitor at the end of prescribed order Call with problems [phone] or [phone]. [phone] Patient expresses a good understanding of instructions Diamond Iyer RN [facility] 08-10-2023 History of Present illness Narrative EVENT MONITOR DISPOSABLE PATCH INSTRUCTIONS Patient Name: Juliette Chavez [facility] Number: [id number] Skin prepped and cleansed with alcohol Patch secured to prepped area Monitor Activated Serial #: [id number] Patient Instructed: Prescribed order timeframe Bathing guidelines Usage of event button and diary documentation Return of monitor at the end of prescribed order Call with problems [phone] or [phone]. [phone] Patient expresses a good understanding of instructions Diamond Iyer RN documented in this encounter [facility] 08-10-2023 Miscellaneous Notes Addended by: GISSELLE SPRAGUE on: 08/10/2023 01:15 PM Modules accepted: Orders Pt coming in today for zio placement on nurse visit. Please order the zio. documented in this encounter [facility] 08-01-2023 Note HNO ID: [id number] Author: Yasemin Klein RT(R) Service: ? Author Type: Lpn Rn Type: Progress Notes Filed: 08/01/2023 8:11 PM Note Text: Radiology Service Progress Note PATIENT NAME: Juliette Marrufo DATE OF SERVICE: August 01, 2023 TIME: 8:11 PM PATIENT IDENTITY VERIFICATION COMPLETED USING TWO (2) IDENTIFIERS: Name and Date of confirmed by patient verbally and Name and Date of confirmed by identification band. FALL SCREENING: Has the patient had 2 falls in the last year or 1 fall with injury or currently using an Ambulatory Assistive Device (Walker, Cane, Wheelchair, Crutches, etc.)? No PATIENT GENDER DATA: Female. status: : No status: NO. PATIENT RELEVANT IMPLANT DATA REVIEWED: Not Applicable RADIOLOGY DEPARTMENT: General X-ray: Exam(s) Completed: Lower Extremity X-Ray(s): Foot, Right PERIPHERAL IV DATA: Not applicable SIGNED BY: RT Parminder(R) August 01, 2023 8:11 PM [facility] 08-01-2023 Note HNO ID: [id number] Author: Gisselle Sprague PA-C Service: ? Author Type: Physician Telesales Team Leader Type: Progress Notes Filed: 08/01/2023 8:26 PM Note Text: PROGRESS NOTE Persons Present: patient Chief Complaint/Reason: lightheadedness, dizziness worsening HPI: Patient is a 33 yo female with a complex medication history significant for tachycardia, KAISER, asthma, type II DM, PCOS, severe obesity and ADD who presents for worsening of her dizziness. Sent [employer] message yesterday: For the last 3 weeks I have been feeling lightheaded and dizzy more than normal to the point it is effecting my ability to work Saw cardiology 07/06/23 - Dr. Murray ordered stress test without echo. Scheduled 08/16/23. Per his notes from that visit: An echocardiogram done in 2015 which showed normal LV function ejection fraction 62%. No valvular heart disease of any significance. A Tilt table testing done on 10/19/2021 showed accentuated postural tachycardia with early rise in heart rate however there was a hypertensive response to tilt as well as in the increase of the heart rate. Plan at that time was to increase toprol XL to 50mg. No change in symptoms. Squatting to standing - lightheadedness has persisted. Now if standing at stove, symptoms are worse. [place] like she was going to pass out - checked BS 30 minutes after - about 180 One day where HR wouldn't go below 100BPM - pulse ox and fit bit. Baseline is 86 BPM Palpitations intermittently throughout the day - often with lying down. Off adderall 15mg XR; advised this could worsen symptoms She'd rather be distracted and unfocused then have dizziness, palpitations. Fluid Intake: Water - 60-100 oz daily Soda - 1-2 12 oz bottles pepsi or root beer. Dietary intake: Breakfast - protein shakes, smoothies Lunch - gas station salad Dinner - fast food. 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 In evening, goes home and does home work. Wearing compression stockings daily. Notices some mild lower extremity edema Tested for KAISER in 2014. -mild KAISER, not treated. - Interested in reassessment. Right foot pain - For the last month - intermitttent in nature, varies in intensity. Located initially by heel, now more so in center of foot. Not able to tolerate overnight strap that her aunt gave her Has been trying to stretch on the stairs but this triggers her dizziness. Data Reviewed: Most recent labs and imaging results. PAST MEDICAL HISTORY Diagnosis Date Anxiety and depression Asthma Complex cyst of left ovary 08/10/2022 Diabetes mellitus (HCC) H/O cold sores TINAJERO (nonalcoholic steatohepatitis) KAISER (obstructive sleep apnea) PCOS (polycystic ovarian syndrome) PAST SURGICAL HISTORY Procedure Laterality Date REMOVAL GALLBLADDER 09/01/2011 Current medication regimen is as listed below. Patient denies any side effects of medication. Current Outpatient Medications on File Prior to Visit Medication Sig atorvastatin (LIPITOR) 20 mg tablet Take 1 tablet by mouth once daily metoprolol succinate ER (TOPROL XL) 50 mg 24 hr tablet Take 1 tablet by mouth once daily. buPROPion XL (WELLBUTRIN XL) 300 mg 24 hr tablet Take 1 tablet by mouth once daily. omeprazole (PRILOSEC) 20 mg capsule Take 1 capsule by mouth once daily for 14 days. lamoTRIgine (LAMICTAL) 25 mg tablet Take 1 tablet by mouth once daily for 14 days, THEN 2 tablets once daily for 14 days. (Patient taking differently: 2 tablets once daily ) amphetamine-dextroamphetamine XR (ADDERALL XR) 15 mg biphasic capsule Take 1 capsule by mouth once daily for 30 days. insulin lispro (HUMALOG U-100 INSULIN) 100 unit/mL injection Use with insulin pump up to 120 units daily empagliflozin (JARDIANCE) 10 mg tablet Take 1 tablet by mouth daily with breakfast. OMNIPOD 5 G6 PODS, GEN 5, crtg Change pod every 48 hours. Blood-Glucose Transmitter (DEXCOM G6 TRANSMITTER) nicky Check glucose 4 times daily. Blood-Glucose Sensor (DEXCOM G6 SENSOR) nicky Check glucose 4 times daily tirzepatide (MOUNJARO) 10 mg/0.5 mL pen injector Inject 10 mg subcutaneously one time a week. magnesium oxide (MAG-OX) 400 mg (241.3 mg magnesium) tablet Take 1 tablet by mouth twice daily. insulin degludec (TRESIBA FLEXTOUCH U-100) 100 unit/mL (3 mL) injection pen Inject 70 Units subcutaneously once daily. (Patient not taking: Reported on 06/15/2023) albuterol HFA (PROAIR HFA) 90 mcg/actuation inhaler Inhale 2 Puffs as instructed every 4 hours as needed. tranexamic acid (LYSTEDA) 650 mg tablet Take 2 tablets by mouth every 8 hours. during menses for heavy menstrual bleeding. Maximum of 5 days. topiramate (TOPAMAX) 25 mg tablet take 1/2 tablet for 2 weeks then increase to a full tablet (Patient taking differently: Take 25 mg by mouth once daily.) loratadine (CLARITIN) 10 mg tablet Take 1 tablet by mouth once daily. ondansetr (more content not included)... [facility] 07-31-2023 Miscellaneous Notes Spoke to patient and scheduled ov for 08/01. Agree - need visit. PSS please assist in apt documented in this encounter [facility] 07-07-2023 Miscellaneous Notes Last office visit 07/06/23 Future appt scheduled 07/08/24 Last Lipid and CMP 06/15/23 documented in this encounter [facility] 07-06-2023 Note HNO ID: [id number] Author: Varghese Murray MD Service: ? Author Type: Physician Type: Progress Notes Filed: 07/06/2023 8:43 AM Note Text: [facility] [place] SECTION OF REGIONAL CARDIOLOGY OUTPATIENT VISIT DATE July 06, 2023 OUTPATIENT VISIT TYPE ESTABLISHED PRIMARY CARE PHYSICIAN: Opal Malloy [address] [place] [address] CHIEF COMPLAINT: Tachycardia. Dizziness.Arrhythmia and chest discomfort. HISTORY OF PRESENT ILLNESS: Ms. Marrufo is a 33 year old female with a significant history of morbid obesity. PCOS. Type 2 diabetes. Obstructive sleep apnea and asthma. Cardiac work-up includes: An echocardiogram done in 2016 which showed normal LV function ejection fraction 62%. No valvular heart disease of any significance. A Tilt table testing done on 10/19/2021 showed accentuated postural tachycardia with early rise in heart rate however there was a hypertensive response to tilt as well as in the increase of the heart rate. Was in the emergency room on 04/14/2023 due to chest discomfort for 4 days. She mentioned that her chest pain was substernal. Constant pressure. No radiation. No aggravating or relieving factors. EKG and cardiac enzymes were unremarkable. 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 She continues to feel some tachycardia episodes when she tries to lie flat on her back or going to bed. Also she feels dizzy occasionally however much better than previously after she started her beta-blockers. IMPRESSION: Encounter Diagnosis ICD-10-CM 1. KAISER (obstructive sleep apnea) G47.33 2. Chest discomfort R07.89 3. Dizziness R42 4. Severe obesity (BMI >= 40) ([facility]) E66.01 5. Tachycardia R00.0 PLAN AND RECOMMENDATIONS: Chest discomfort Dizziness and sinus tachycardia Better than previously however still slightly symptomatic. I will increase her Toprol-XL to 50 mg a day. Obstructive sleep apnea Medicine managing. Morbid obesity Encouraged again for more plant-based diet. Less animal-based products. Reduce calorie intake. Increase level of exercise. PHYSICAL EXAMINATION: BP 116/80 (BP Site: Left Arm, BP Position: Sitting, BP Cuff Size: Regular Adult) Pulse 76 Ht 176.5 cm (5' 9.5 ) Wt 129.5 kg (285 lb 9.6 oz) LMP 06/08/2023 (Approximate) SpO2 97% BMI 41.57 kg/m? HEENT: normocephalic, EOMI Heart: regular rhythm Lungs: clear to auscultation Abdomen: bowel sounds present Extremities: no edema Musculoskeletal: chest wall nontender Neurological: alert and oriented Psychiatric: appropriate and cooperative Skin: no rash, cellulitis or lesions appreciated CARDIOVASCULAR MEDICINE TESTING: I have personally reviewed ECG and laboratory results Last EKG Result Conclusion EKG Collected: 04/14/2023 7:46 PM (Preliminary result) Impression: Normal sinus rhythm Cannot rule out Anterior infarct , age undetermined Abnormal ECG PAST CARDIAC HISTORY: See above. PAST MEDICAL HISTORY Diagnosis Date Anxiety and depression Asthma Complex cyst of left ovary 08/10/2022 Diabetes mellitus (HCC) H/O cold sores TINAJERO (nonalcoholic steatohepatitis) KAISER (obstructive sleep apnea) PCOS (polycystic ovarian syndrome) PAST SURGICAL HISTORY Procedure Laterality Date REMOVAL GALLBLADDER 09/01/2011 Social History Tobacco Use Smoking status: Never Smokeless tobacco: Never Vaping Use Vaping Use: Never used Substance Use Topics Alcohol use: Yes Comment: rare. about 5x per year Drug use: No FAMILY HISTORY Problem Relation Age of Onset No Ocular Disease Maternal Grandfather other (lung cancer) Maternal Grandfather Cervical Cancer Mother No Ocular Disease Mother Psoriasis Mother No Ocular Disease Father other (Lung problem) Father No Ocular Disease Maternal Grandmother No Ocular Disease Paternal Grandmother No Ocular Disease Paternal Grandfather other (Colon polyps) Paternal Uncle ALLERGIES No Known Allergies CURRENT MEDICATIONS: buPROPion XL (WELLBUTRIN XL) 300 mg 24 hr tablet Take 1 tablet by mouth once daily. omeprazole (PRILOSEC) 20 mg capsule Take 1 capsule by mouth once daily for 14 days. lamoTRIgine (LAMICTAL) 25 mg tablet Take 1 tablet by mouth once daily for 14 days, THEN 2 tablets once daily for 14 days. (Patient taking differently: 2 tablets once daily ) ALPRAZolam (XANAX) 0.5 mg tablet Take 1 tablet by mouth twice daily as needed for up to 90 days. amphetamine-dextroamphetamine XR (ADDERALL XR) 15 mg biphasic capsule Take 1 capsule by mouth once daily for 30 days. insulin lispro (HUMALOG U-100 INSULIN) 100 unit/mL injection Use with insulin pump up to 120 units daily empagliflozin (JARDIANCE) 10 mg tablet Take 1 tablet by mouth daily with breakfast. metoprolol succinate ER (TOPROL XL) 25 mg (more content not included)... [facility] 07-06-2023 History of Present illness Narrative Images from the original note were not included. [facility] [place] SECTION OF REGIONAL CARDIOLOGY OUTPATIENT VISIT DATE July 06, 2023 OUTPATIENT VISIT TYPE ESTABLISHED PRIMARY CARE PHYSICIAN: Opal Malloy [id number] [place] [address] CHIEF COMPLAINT: Tachycardia. Dizziness.Arrhythmia and chest discomfort. HISTORY OF PRESENT ILLNESS: Ms. Marrufo is a 33 year old female with a significant history of morbid obesity. PCOS. Type 2 diabetes. Obstructive sleep apnea and asthma. Cardiac work-up includes: An echocardiogram done in 2016 which showed normal LV function ejection fraction 62%. No valvular heart disease of any significance. A Tilt table testing done on 10/19/2021 showed accentuated postural tachycardia with early rise in heart rate however there was a hypertensive response to tilt as well as in the increase of the heart rate. Was in the emergency room on 04/14/2023 due to chest discomfort for 4 days. She mentioned that her chest pain was substernal. Constant pressure. No radiation. No aggravating or relieving factors. EKG and cardiac enzymes were unremarkable. 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 She continues to feel some tachycardia episodes when she tries to lie flat on her back or going to bed. Also she feels dizzy occasionally however much better than previously after she started her beta-blockers. IMPRESSION: Encounter Diagnosis ICD-10-CM 1. KAISER (obstructive sleep apnea) G47.33 2. Chest discomfort R07.89 3. Dizziness R42 4. Severe obesity (BMI >= 40) ([facility]) E66.01 5. Tachycardia R00.0 PLAN AND RECOMMENDATIONS: Chest discomfort Dizziness and sinus tachycardia Better than previously however still slightly symptomatic. I will increase her Toprol-XL to 50 mg a day. Obstructive sleep apnea Medicine managing. Morbid obesity Encouraged again for more plant-based diet. Less animal-based products. Reduce calorie intake. Increase level of exercise. PHYSICAL EXAMINATION: BP 116/80 (BP Site: Left Arm, BP Position: Sitting, BP Cuff Size: Regular Adult) Pulse 76 Ht 176.5 cm (5' 9.5 ) Wt 129.5 kg (285 lb 9.6 oz) LMP 06/08/2023 (Approximate) SpO2 97% BMI 41.57 kg/m HEENT: normocephalic, EOMI Heart: regular rhythm Lungs: clear to auscultation Abdomen: bowel sounds present Extremities: no edema Musculoskeletal: chest wall nontender Neurological: alert and oriented Psychiatric: appropriate and cooperative Skin: no rash, cellulitis or lesions appreciated CARDIOVASCULAR MEDICINE TESTING: I have personally reviewed ECG and laboratory results Last EKG Result Conclusion EKG Collected: 04/14/2023 7:46 PM (Preliminary result) Impression: Normal sinus rhythm Cannot rule out Anterior infarct , age undetermined Abnormal ECG PAST CARDIAC HISTORY: See above. PAST MEDICAL HISTORY Diagnosis Date Anxiety and depression Asthma Complex cyst of left ovary 08/10/2022 Diabetes mellitus (HCC) H/O cold sores TINAJERO (nonalcoholic steatohepatitis) KAISER (obstructive sleep apnea) PCOS (polycystic ovarian syndrome) PAST SURGICAL HISTORY Procedure Laterality Date REMOVAL GALLBLADDER 09/01/2011 Social History Tobacco Use Smoking status: Never Smokeless tobacco: Never Vaping Use Vaping Use: Never used Substance Use Topics Alcohol use: Yes Comment: rare. about 5x per year Drug use: No FAMILY HISTORY Problem Relation Age of Onset No Ocular Disease Maternal Grandfather other (lung cancer) Maternal Grandfather Cervical Cancer Mother No Ocular Disease Mother Psoriasis Mother No Ocular Disease Father other (Lung problem) Father No Ocular Disease Maternal Grandmother No Ocular Disease Paternal Grandmother No Ocular Disease Paternal Grandfather other (Colon polyps) Paternal Uncle ALLERGIES No Known Allergies CURRENT MEDICATIONS: buPROPion XL (WELLBUTRIN XL) 300 mg 24 hr tablet Take 1 tablet by mouth once daily. omeprazole (PRILOSEC) 20 mg capsule Take 1 capsule by mouth once daily for 14 days. lamoTRIgine (LAMICTAL) 25 mg tablet Take 1 tablet by mouth once daily for 14 days, THEN 2 tablets once daily for 14 days. (Patient taking differently: 2 tablets once daily ) ALPRAZolam (XANAX) 0.5 mg tablet Take 1 tablet by mouth twice daily as needed for up to 90 days. amphetamine-dextroamphetamine XR (ADDERALL XR) 15 mg biphasic capsule Take 1 capsule by mouth once daily for 30 days. insulin lispro (HUMALOG U-100 INSULIN) 100 unit/mL injection Use with insulin pump up to 120 units daily empagliflozin (JARDIANCE) 10 mg tablet Take 1 tablet by mouth daily with breakfast. metoprolol succinate ER (TOPROL XL) 25 mg 24 hr tablet Take 1.5 tablets by mouth once daily. OMNIPOD 5 G6 PODS, GEN 5, crtg Change pod every 48 hours. Blood-Glucose Transmitter (PicturkCOM G6 TRANSMITTER) nicky Check glucose 4 times daily. Blood-Glucose Sensor (DEXCOM G6 SENSOR) nicky Check glucose 4 times daily tirzepatide (MOUNJARO) 10 mg/0.5 mL pen injector Inject 10 mg subcutaneously one time a week. atorvastatin (LIPITOR) 20 mg tablet Take 1 tablet by mouth once daily. magnesium oxide (MAG-OX) 400 mg (241.3 mg magnesium) tablet Take 1 tablet by mouth twice daily. albuterol HFA (PROAIR HFA) 90 mcg/actuation inhaler Inhale 2 Puffs as instructed every 4 hours as needed. tranexamic acid (LYSTEDA) 650 mg tablet Take 2 tablets by mouth every 8 hours. during menses for heavy menstrual bleeding. Maximum of 5 days. topiramate (TOPAMAX) 25 mg tablet take 1/2 tablet for 2 weeks then increase to a full tablet (Patient taking differently: Take 25 mg by mouth once daily.) loratadine (CLARITIN) 10 mg tablet Take 1 tablet by mouth once daily. spironolactone (ALDACTONE) 100 mg tablet Take 1 tablet by mouth once daily. blood sugar diagnostic (5 Screens MediaTOUCH VERIO TEST STRIPS) test strip Use as instructed to test blood sugar twice daily (on insulin) Lancets lancets Use as instructed to test blood sugar twice daily (on insulin) Multivitamin capsule Take 1 capsule by mouth once daily. insulin degludec (TRESIBA FLEXTOUCH U-100) 100 unit/mL (3 mL) injection pen Inject 70 Units subcutaneously once daily. (Patient not taking: Reported on 06/15/2023) ondansetron (ZOFRAN) 4 mg tablet Take 1 tablet by mouth every 8 hours as needed for nausea/vomiting. (Patient not taking: Reported on 04/25/2023) fluconazole (DIFLUCAN) 150 mg tablet Take 1 tablet PO q week x 6 months (Patient not taking: Reported on 06/15/2023) documented in this encounter [facility] 06-15-2023 Note HNO ID: [id number] Author: Esme Callejas APRN.FACILITIES ADMINISTRATOR Service: ? Author Type: Nurse Practitioner Type: Progress Notes Filed: 06/15/2023 9:22 AM Note Text: Endocrinology Follow-up History of Present Illness Juliette Marrufo is a 32 year old female presents today for follow up of DM Type 2. Started OP5 01/2023. Doing well on this- she loves the pump. Her insulin requirements have reduced by 50%. In the beginning was bolusing for carbs more consisently, now missing at times. Recently mental health was not great, but this has recently improved. 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 Still having sulfur burps from [employer], but she is overall tolerating well and feels she is doing well on this dose. Compliance with oral meds has improved as well as she is now filling her pill box for the whole month. Historically when stressed she has stopped her medications/insulin. Glucose is well controlled when taking regimen consistently. She has a good support system- sees a counselor and has her boyfriend. She also has a few friends who text her daily to check if she has taken her medication. She is not currently following with weight management as she had to miss work for appointments and this was added stress. She prefers in person appointments for accountability. Date of Diagnosis: 2012, preceded by PCOS for years Last HbA1c: Hemoglobin A1C (%) Date Value 06/27/2022 12.6 01/11/2021 10.9 06/25/2019 7.6 11/03/2018 7.7 07/23/2018 11.0 01/30/2018 9.4 Hemoglobin A1C (POCT) (%) Date Value 01/31/2023 9.1 11/01/2022 12.5 09/02/2021 7.0 05/27/2021 9.2 10/04/2019 7.9 Complications Microvascular: none Macrovascular: none Associated diagnoses/complications are: PCOS with clinical and biochemical hyperandrogenism/ irregular periods/ fertility issues, periods regular in the last couple years, on BCPs, sees Dr Bland. TINAJERO (liver biopsy showed stage 2 fibrosis), seen by Hepatology Dr Mireles. HPL managed by PCP, on statin. Depression, followed by PCP. Asthma, sleep apnea s/p cholecx 2011 Health Maintenance Topics Topic Date Due Diabetic Foot Exam 07/12/2023 Physical Activity: Sedentary Diet: CHO Controlled Diet SMBG Frequency of Monitoring: Four times a Day using Dexcom Summary of Personal CGM Findings: Dates worn: 06/02/2023-06/15/2023 CGM Type: Dexcom 1- CGM recording is adequate for interpretation. Worn 79% of time. 2- Average glucose is 180 mg/dl. 3. 59% time in range 70-180mg/dL 4. Coefficient of variation: 25.2% 5. Total frequency of hypoglycemia: 0% with BG<70 * Hypoglycemia patterns: none *Nocturnal hypoglycemia none noted 6- Hyperglycemic episodes 41% with BG>180 * Hyperglycemia Patterns: postprandially Current Pump Settings: Omnipod 5 Basal 0000 1.4 units/hr ICR 0000 6.5 ISF 0000 25 Target BG 110 TDD 60 units Basal 74%, Bolus 26% Previous DM meds: Jardiance- caused yeast infections in the past, but no issues so far since restarting Metformin- GI SE Current DM Related Medications: Current Medications 06/15/2023 DIABETES THERAPIES Medication Dosage Pharm Subclass empagliflozin (JARDIANCE) 10 mg tablet Take 1 tablet by mouth daily with breakfast. Antihyperglycemic - Sodium Glucose Cotransporter-2 (SGLT2) Inhibitors insulin degludec (TRESIBA FLEXTOUCH U-100) 100 unit/mL (3 mL) injection pen Inject 70 Units subcutaneously once daily. Insulin Analogs - Long Acting insulin lispro (HUMALOG U-100 INSULIN) 100 unit/mL injection Use with insulin pump up to 120 units daily Insulin Analogs - Rapid Acting tirzepatide (MOUNJARO) 10 mg/0.5 mL pen injector Inject 10 mg subcutaneously one time a week. Antihyperglycemic - Dual GIP and GLP-1 Receptor Agonists CARDIOVASCULAR Medication Dosage Pharm Subclass atorvastatin (LIPITOR) 20 mg tablet Take 1 tablet by mouth once daily. Antihyperlipidemic - HMG CoA Reductase Inhibitors (statins) metoprolol succinate ER (TOPROL XL) 25 mg 24 hr tablet Take 1.5 tablets by mouth once daily. Beta Blockers Cardiac Selective DIURETICS Medication Dosage Pharm Subclass spironolactone (ALDACTONE) 100 mg tablet Take 1 tablet by mouth once daily. Diuretic - Aldosterone Receptor Antagonist, Non-selective OTHER Medication Dosage Pharm Subclass albuterol HFA (PROAIR HFA) 90 mcg/actuation inhaler Inhale 2 Puffs as instructed every 4 hours as needed. Asthma/COPD Therapy - Beta 2-Adrenergic Agents, Inhaled, Short Acting ALPRAZolam (XANAX) 0.5 mg tablet Take 1 tablet by mouth twice daily as needed for up to 90 days. Antianxiety Agent - Benzodiazepines amphetamine-dextroamphetamine XR (ADDERALL XR) 15 mg biphasic capsule Take 1 capsule by mouth once daily for 30 days. WOOD FINISHER APPRENTICE Stimulant - Amphetamine Combinations blood sugar diagnostic (ONETOUCH VERIO TEST STRIPS) test strip Use as instructed to test blood sugar twi (more content not included)... [facility] 06-15-2023 Instructions Esme Callejas APRN.CNP - 06/15/2023 9:12 AM EDT Plan Continue: Jardiance 10 mg once daily Mounjaro 10 mg daily Continue current pump settings Check your blood sugar 4 times daily using CGM. Glucose targets as: Fasting 90-130, before meals 100-130, and bedtime under 150 mg/dL. Notify office for consistently elevated or any low blood sugars <70 Obtain fasting labs Follow up with me in 4 months documented in this encounter [facility] 06-15-2023 History of Present illness Narrative Endocrinology Follow-up History of Present Illness Juliette Marrufo is a 32 year old female presents today for follow up of DM Type 2. Started OP5 01/2023. Doing well on this- she loves the pump. Her insulin requirements have reduced by 50%. In the beginning was bolusing for carbs more consisently, now missing at times. Recently mental health was not great, but this has recently improved. 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 Still having sulfur burps from Mounjaro, but she is overall tolerating well and feels she is doing well on this dose. Compliance with oral meds has improved as well as she is now filling her pill box for the whole month. Historically when stressed she has stopped her medications/insulin. Glucose is well controlled when taking regimen consistently. She has a good support system- sees a counselor and has her boyfriend. She also has a few friends who text her daily to check if she has taken her medication. She is not currently following with weight management as she had to miss work for appointments and this was added stress. She prefers in person appointments for accountability. Date of Diagnosis: 2012, preceded by PCOS for years Last HbA1c: Hemoglobin A1C (%) Date Value 06/27/2022 12.6 01/11/2021 10.9 06/25/2019 7.6 11/03/2018 7.7 07/23/2018 11.0 01/30/2018 9.4 Hemoglobin A1C (POCT) (%) Date Value 01/31/2023 9.1 11/01/2022 12.5 09/02/2021 7.0 05/27/2021 9.2 10/04/2019 7.9 Complications Microvascular: none Macrovascular: none Associated diagnoses/complications are: PCOS with clinical and biochemical hyperandrogenism/ irregular periods/ fertility issues, periods regular in the last couple years, on BCPs, sees Dr Bland. TINAJERO (liver biopsy showed stage 2 fibrosis), seen by Hepatology Dr Mireles. HPL managed by PCP, on statin. Depression, followed by PCP. Asthma, sleep apnea s/p cholecx 2011 Health Maintenance Topics Topic Date Due Diabetic Foot Exam 07/12/2023 Physical Activity: Sedentary Diet: CHO Controlled Diet SMBG Frequency of Monitoring: Four times a Day using Dexcom Summary of Personal CGM Findings: Dates worn: 06/02/2023-06/15/2023 CGM Type: Dexcom 1- CGM recording is adequate for interpretation. Worn 79% of time. 2- Average glucose is 180 mg/dl. 3. 59% time in range 70-180mg/dL 4. Coefficient of variation: 25.2% 5. Total frequency of hypoglycemia: 0% with BG<70 * Hypoglycemia patterns: none *Nocturnal hypoglycemia none noted 6- Hyperglycemic episodes 41% with BG>180 * Hyperglycemia Patterns: postprandially Current Pump Settings: Omnipod 5 Basal 0000 1.4 units/hr ICR 0000 6.5 ISF 0000 25 Target BG 110 TDD 60 units Basal 74%, Bolus 26% Previous DM meds: Jardiance- caused yeast infections in the past, but no issues so far since restarting Metformin- GI SE Current DM Related Medications: Current Medications 06/15/2023 DIABETES THERAPIES Medication Dosage Pharm Subclass empagliflozin (JARDIANCE) 10 mg tablet Take 1 tablet by mouth daily with breakfast. Antihyperglycemic - Sodium Glucose Cotransporter-2 (SGLT2) Inhibitors insulin degludec (TRESIBA FLEXTOUCH U-100) 100 unit/mL (3 mL) injection pen Inject 70 Units subcutaneously once daily. Insulin Analogs - Long Acting insulin lispro (HUMALOG U-100 INSULIN) 100 unit/mL injection Use with insulin pump up to 120 units daily Insulin Analogs - Rapid Acting tirzepatide (MOUNJARO) 10 mg/0.5 mL pen injector Inject 10 mg subcutaneously one time a week. Antihyperglycemic - Dual GIP and GLP-1 Receptor Agonists CARDIOVASCULAR Medication Dosage Pharm Subclass atorvastatin (LIPITOR) 20 mg tablet Take 1 tablet by mouth once daily. Antihyperlipidemic - HMG CoA Reductase Inhibitors (statins) metoprolol succinate ER (TOPROL XL) 25 mg 24 hr tablet Take 1.5 tablets by mouth once daily. Beta Blockers Cardiac Selective DIURETICS Medication Dosage Pharm Subclass spironolactone (ALDACTONE) 100 mg tablet Take 1 tablet by mouth once daily. Diuretic - Aldosterone Receptor Antagonist, Non-selective OTHER Medication Dosage Pharm Subclass albuterol HFA (PROAIR HFA) 90 mcg/actuation inhaler Inhale 2 Puffs as instructed every 4 hours as needed. Asthma/COPD Therapy - Beta 2-Adrenergic Agents, Inhaled, Short Acting ALPRAZolam (XANAX) 0.5 mg tablet Take 1 tablet by mouth twice daily as needed for up to 90 days. Antianxiety Agent - Benzodiazepines amphetamine-dextroamphetamine XR (ADDERALL XR) 15 mg biphasic capsule Take 1 capsule by mouth once daily for 30 days. WOOD FINISHER APPRENTICE Stimulant - Amphetamine Combinations blood sugar diagnostic (DekkoUCH VERIO TEST STRIPS) test strip Use as instructed to test blood sugar twice daily (on insulin) Medical Supplies and DME - Blood Glucose Tests Blood-Glucose Sensor (Zoobean G6 SENSOR) nicky Check glucose 4 times daily Medical Supplies and DME - Glucose Monitoring Test Supplies Blood-Glucose Transmitter (Zoobean G6 TRANSMITTER) nicky Check glucose 4 times daily. Medical Supplies and DME - Glucose Monitoring Test Supplies buPROPion XL (WELLBUTRIN XL) 300 mg 24 hr tablet Take 1 tablet by mouth once daily. Antidepressant-Norepinephrine and Dopamine Reuptake Inhibitors (NDRIs) fluconazole (DIFLUCAN) 150 mg tablet Take 1 tablet PO q week x 6 months Antifungal - Triazoles lamoTRIgine (LAMICTAL) 25 mg tablet Take 1 tablet by mouth once daily for 14 days, THEN 2 tablets once daily for 14 days. Anticonvulsant - Phenyltriazine Derivatives Lancets lancets Use as instructed to test blood sugar twice daily (on insulin) Medical Supplies and DME - Glucose Monitoring Test Supplies loratadine (CLARITIN) 10 mg tablet Take 1 tablet by mouth once daily. Antihistamines - 2nd Generation magnesium oxide (MAG-OX) 400 mg (241.3 mg magnesium) tablet Take 1 tablet by mouth twice daily. Antacid - Magnesium Multivitamin capsule Take 1 capsule by mouth once daily. Multivitamins omeprazole (PRILOSEC) 20 mg capsule Take 1 capsule by mouth once daily for 14 days. Gastric Acid Secretion Hvac Installer - Proton Pump Inhibitors (PPIs) OMNIPOD 5 G6 PODS, GEN 5, crtg Change pod every 48 hours. Medical Supply, FDB Superset ondansetron (ZOFRAN) 4 mg tablet Take 1 tablet by mouth every 8 hours as needed for nausea/vomiting. Antiemetic - Selective Serotonin 5-HT3 Antagonists topiramate (TOPAMAX) 25 mg tablet take 1/2 tablet for 2 weeks then increase to a full tablet Anticonvulsant - Monosaccharide Derivatives tranexamic acid (LYSTEDA) 650 mg tablet Take 2 tablets by mouth every 8 hours. during menses for heavy menstrual bleeding. Maximum of 5 days. Hemostatic Systemic - Antifibrinolytic Agents Past History, Medications, Allergies PAST MEDICAL HISTORY Diagnosis Date Anxiety and depression Asthma Complex cyst of left ovary 08/10/2022 Diabetes mellitus (HCC) H/O cold sores TINAJERO (nonalcoholic steatohepatitis) KAISER (obstructive sleep apnea) PCOS (polycystic ovarian syndrome) PAST SURGICAL HISTORY Procedure Laterality Date REMOVAL GALLBLADDER 09/01/2011 ALLERGIES No Known Allergies FAMILY HISTORY Problem Relation Age of Onset No Ocular Disease Maternal Grandfather other (lung cancer) Maternal Grandfather Cervical Cancer Mother No Ocular Disease Mother Psoriasis Mother No Ocular Disease Father other (Lung problem) Father No Ocular Disease Maternal Grandmother No Ocular Disease Paternal Grandmother No Ocular Disease Paternal Grandfather other (Colon polyps) Paternal Uncle Social History Tobacco Use Smoking status: Never Smokeless tobacco: Never Vaping Use Vaping Use: Never used Substance Use Topics Alcohol use: Yes Comment: rare. about 5x per year Drug use: No Review of Systems GENERAL: No weight loss, malaise or fevers RESPIRATORY: Negative for cough, hemoptysis, wheezing, COPD, dyspnea or shortness of breath CARDIOVASCULAR: Negative for chest pain, leg swelling, hypertension, CHF or palpitations GI: No nausea, vomiting, or diarrhea ENDOCRINE: Negative for cold or heat intolerance, polyuria, polydipsia and goiter NEUROLOGIC:Negative for focal numbness or weakness, headaches and dizziness or syncope. Physical examination BP 102/70 Pulse 72 Wt 127 kg (280 lb) LMP 06/08/2023 (Approximate) BMI 40.76 kg/m General appearance: Well appearing, alert, in no acute distress, well-hydrated, well nourished. Skin: Skin color, texture, turgor normal, no suspicious rashes or lesions HEART: normal rate LUNGS: unlabored, normal respiratory rate EXTREMITIES No deformities, No skin discoloration and No edema NEURO: Speech normal, mental status intact, no tremor noted. Previous Laboratory Results LABS Glucose (mg/dL) Date Value 04/25/2023 174 04/14/2023 106 01/02/2023 239 07/09/2021 128 06/01/2021 136 01/11/2021 273 Potassium (mmol/L) Date Value 04/25/2023 4.4 07/09/2021 4.1 Sodium (mmol/L) Date Value 04/25/2023 139 04/14/2023 142 01/02/2023 134 07/09/2021 140 06/01/2021 139 01/11/2021 133 Chloride (mmol/L) Date Value 04/25/2023 103 04/14/2023 105 01/02/2023 100 07/09/2021 105 06/01/2021 104 01/11/2021 102 CO2 (mmol/L) Date Value 04/25/2023 23 04/14/2023 26 01/02/2023 24 07/09/2021 24 06/01/2021 23 01/11/2021 21 Creatinine (mg/dL) Date Value 04/25/2023 0.75 04/14/2023 0.79 01/02/2023 0.58 07/09/2021 0.81 06/01/2021 0.65 01/11/2021 0.59 BUN (mg/dL) Date Value 04/25/2023 5 04/14/2023 6 01/02/2023 8 07/09/2021 8 06/01/2021 7 01/11/2021 7 Anion Gap (mmol/L) Date Value 04/25/2023 13 04/14/2023 11 01/02/2023 10 07/09/2021 11 06/01/2021 12 01/11/2021 10 Calcium (mg/dL) Date Value 07/09/2021 9.5 06/01/2021 9.5 01/11/2021 9.1 Calcium, Total (mg/dL) Date Value 04/25/2023 9.4 04/14/2023 9.4 01/02/2023 9.3 eGFR- (no units) Date Value 07/09/2021 >60 06/01/2021 >60 01/11/2021 >60 eGFR-All Other Races (.) Date Value 07/09/2021 >60 06/01/2021 >60 01/11/2021 >60 Estimated Glomerular Filtration Rate (mL/min/1.73m ) Date Value 04/25/2023 108 04/14/2023 101 01/02/2023 123 ALT (U/L) Date Value 04/25/2023 20 04/14/2023 19 01/02/2023 32 07/09/2021 18 06/01/2021 27 12/02/2019 45 TSH Date Value Ref Range Status 04/25/2023 1.020 0.270 - 4.200 mIU/L Final Comment: If the patient is , TSH reference range varies by gestational period: First Trimester (weeks 9-12): 0.180-2.990 mIU/L Second Trimester: 0.110-3.980 mIU/L Third Trimester: 0.480-4.710 mIU/L Andrew Erickson, et al. A Practical Approach for the Verifications and Determination of Site- and Trimester-Specific Reference Intervals for Thyroid Function tests in . Thyroid, 2019:29:3:412-420. Samuel Ervin, et al. 2017 Guidelines of the [place] [employer] Association for the Diagnosis and Management of Thyroid Disease during and the . Thyroid, 2017:27:3:315-389. 05/20/2022 1.040 0.270 - 4.200 mIU/L Final Comment: If the patient is , TSH reference range varies by gestational period: First Trimester (weeks 9-12): 0.180-2.990 mIU/L Second Trimester: 0.110-3.980 mIU/L Third Trimester: 0.480-4.710 mIU/L Andrew Erickson et al. A Practical Approach for the Verifications and Determination of Site- and Trimester-Specific Reference Intervals for Thyroid Function tests in . Thyroid, 2019:29:3:412-420. Samuel Ervin et al. 2017 Guidelines of the [place] [employer] for the Diagnosis and Management of Thyroid Disease during and the . Thyroid, 2017:27:3:315-389. 07/09/2021 0.699 0.270 - 4.200 uU/mL Final Comment: If the patient is , TSH reference range varies by gestational period: First Trimester (weeks 9-12): 0.180-2.990 mcIU/mL Second Trimester: 0.110-3.980 mcIU/mL Third Trimester: 0.480-4.710 mcIU/mL Andrew Erickson et al. A Practical Approach for the Verifications and Determination of Site- and Trimester-Specific Reference Intervals for Thyroid Function tests in . Thyroid, 2019:29:3:412-420. Samuel Ervin, et al. 2017 Guidelines of the [place] [employer] for the Diagnosis and Management of Thyroid Disease during and the . Thyroid, 2017:27:3:315-389. Free T4 Date Value Ref Range Status 06/25/2019 1.0 0.9 - 1.7 ng/dL Final 05/31/2017 1.0 0.9 - 1.7 ng/dL Final 06/15/2015 1.1 0.7 - 1.8 ng/dL Final Impression/Recommendations IMPRESSION Juliette Marrufo is a 32 year old here for evaluation of DM Type 2 with hyperglycemia. RECOMMENDATIONS: 1. Glycemic control: Target HbA1C is less than 7.0% per ADA guidelines. This patient is not at target, but with significant improvement in insulin requirements and glycemic control. Hyperglycemia on current report is due to not consistently bolusing for carbs. Settings seem to be working well when carbs are entered. Reviewed importance of boluses. She plans to continue to work on this. I have advised as follows: Plan Continue: Jardiance 10 mg once daily Mounjaro 10 mg daily Continue current pump settings Check your blood sugar 4 times daily and record in log book to bring to all appointments. Bring your meter to all appointments as well. Glucose targets as: Fasting 90-130, before meals 100-130, and bedtime under 150 mg/dL. Notify office for consistently elevated or any low blood sugars <70 Obtain fasting labs today Follow up with me in 4 months The patient was reminded to check their blood glucose as directed and to record the data in a logbook. This patient was advised to bring their logbook to each office visit. I recommended at least 150 minutes per week of moderate physical activity, such as walking and to reduce carbohydrates and overall caloric intake. 2. Hypertension/BP control: BP goal for patients with diabetes is 130/80. -- This patient is at target on their current regimen. 3. Lipids: Target LDL cholesterol in patients with diabetes is less than 100, less than 70 if patient has overt CVD. Several studies have shown cardiovascular benefits of statin therapy in all patients with diabetes over age 40 with at least 1 CVD risk factor. Cholesterol, Total Date Value Ref Range Status 01/02/2023 224 (H) <200 mg/dL Final Comment: <200 mg/dL, Desirable 200-239 mg/dL, Borderline high >239 mg/dL, High HDL Cholesterol Date Value Ref Range Status 01/02/2023 49 >39 mg/dL Final Comment: 40-59 mg/dL, Acceptable >59 mg/dL, High: Negative risk factor for coronary heart disease <40 mg/dL, Low: Positive risk factor for coronary heart disease LDL Cholesterol Date Value Ref Range Status 01/02/2023 138 (H) <100 mg/dL Final Comment: <100 mg/dL, Optimal 100-129 mg/dL, Near optimal/above optimal 130-159 mg/dL, Borderline high 160-189 mg/dL, High >189 mg/dL, Very high Secondary prevention optimal LDL Cholesterol levels are recommended to be < 70 mg/dL Triglyceride Date Value Ref Range Status 01/02/2023 187 (H) <150 mg/dL Final Comment: <150 mg/dL, Normal 150-199 mg/dL, Borderline high 200-499 mg/dL, High >499 mg/dL, Very high -- This patient is not at target on statin. -- Is now taking consistently. -- Managed by cardiology. -- Repeat FLP. 4. Nephropathy screening: Annual measurement of urine albumin excretion is recommended in patients with diabetes. Albumin/Creat Ratio (mg/g) Date Value 06/27/2022 <15 06/01/2021 Not calculated Protein, Urine (mg/dL) Date Value 12/16/2014 neg Creatinine, Ur Random (UCRR) (mg/dL) Date Value 06/27/2022 78.4 06/01/2021 175.5 -- This patient does not have microalbuminuria and is not on TERRI-I or ARB therapy. 5. Ophthalmology: Annual dilated eye exams are recommended for patients with type 1 and type 2 diabetes. -- This patient is up to date with their annual eye exam and has no history of retinopathy. -- Last seen 11/2022 6. Obesity Class III: -- Continue Mounjaro 10 mg weekly. Patient to continue to follow up with her PCP and with other consultants regarding her other medical problems. Any part of this document that has been added/copied & pasted from other documents has been reviewed for accuracy and updated as appropriate at the time of the patient encounter Esme Callejas APRN.FACILITIES ADMINISTRATOR (Signed electronically to expedite mailing) documented in this encounter [facility] 05-11-2023 Note HNO ID: [id number] Author: Radha Cannon MD Service: ? Author Type: Physician Type: Progress Notes Filed: 05/11/2023 1:56 PM Note Text: UNIVERSAL PROTOCOL / SAFETY CHECKLIST Procedure to be Performed: EMG Sign In: A Moment of CARE was completed. Personnel directly involved with the procedure wore the appropriate PPE (Personal Protective Equipment). Patient/Surrogate Stated/Verified: PATIENT VERIFIED(optional for EMERGENT procedures): Patient name, Date of , Relevant allergies, and The intended procedure Time Out Communication: Intended patient and procedure match the source documents. Correct side/site marked and visible. Sign Out: SIGN OUT (optional for EMERGENT procedures): Post-procedure follow-up management communicated and Plan of Care Visit completed when applicable. Latosha Martinez, EMG Tech Radha Cannon MD [facility] 05-11-2023 History of Present illness Narrative UNIVERSAL PROTOCOL / SAFETY CHECKLIST Procedure to be Performed: EMG Sign In: A Moment of CARE was completed. Personnel directly involved with the procedure wore the appropriate PPE (Personal Protective Equipment). Patient/Surrogate Stated/Verified: PATIENT VERIFIED(optional for EMERGENT procedures): Patient name, Date of , Relevant allergies, and The intended procedure Time Out Communication: Intended patient and procedure match the source documents. Correct side/site marked and visible. Sign Out: SIGN OUT (optional for EMERGENT procedures): Post-procedure follow-up management communicated and Plan of Care Visit completed when applicable. Latosha Martinez, EMG Tech Radha Cannon MD documented in this encounter [facility] 05-05-2023 Miscellaneous Notes Patient has been identified by name and date of : Yes Patient phones requesting refills as follows: Requested Prescriptions Pending Prescriptions Disp Refills buPROPion XL (WELLBUTRIN XL) 300 mg 24 hr tablet 90 tablet 1 Sig: Take 1 tablet by mouth once daily. Last appointment: 04/12/2023 Next scheduled appointment: no upcoming appt Appointments for Next 60 Days Date Time Provider Location Dept Phone 05/11/2023 1:05 PM EMG 2 NEUR [facility] (MAX WEIGHT: 300) [facility] [phone] 05/17/2023 10:30 AM KATHY FRANCO [facility] [place] [phone] 06/15/2023 9:00 AM ESME CALLEJAS [facility] [place] [phone] RX INSTRUCTIONS: Respond to pharmacy only and close encounter Claudia Fried Ma documented in this encounter [facility] 04-25-2023 Note HNO ID: [id number] Author: Kathy Franco PA-C Service: ? Author Type: Physician Telesales Team Leader Type: Progress Notes Filed: 04/25/2023 1:29 PM Note Text: Neurology Outpatient Clinic Date: April 25, 2023 Patient Name: Juliette Marrufo Referring physician: Opal Malloy [id number] [facility] [id number] Consult requested for paresthesias by Dr. Malloy. Recommendations will be communicated via shared medical record or US mail. Primary physician: Opal Malloy [id number] [place] [address] Reason for Evaluation: Paresthesias Subjective HPI Juliette Marrufo is a 32 year old right-handed female with history of asthma, KAISER, TINAJERO, DM type 2, PCOS, JONATHAN, depression who presents for evaluation of paresthesias. Dr. Malloy is the referring physician and PCP. Chart review: Patient has insulin pump for DM type 2. PCP on 04/12/23-experiencing chest pain, has anxiety and depression. On wellbutrin and xanax. Per [employer] message on 03/08/23 Also I have been having periods of what I believe is Allodynia. It happens on my arm, face and leg randomly where it will hurt from light touches . Last a1c was 9.1, previous was 12.5. Patient presents for evaluation of paresthesias and pain. Patient notes that of months ago she started to experience a few episodes of hypersensitivity to the right side of her body. She notes that she had 4 episodes total, 1 to the upper right arm, 1 to the right thigh, and 2 to the right face, cheek specifically. These came on unprompted, never happened before, lasted 1 to 2 days. She states that the pain only occurred when she touched the area, at baseline was just uncomfortable. No fluctuations, started and stopped without any aggravating or alleviating factors. No extreme fatigue following these episodes, no bowel bladder incontinence, no tongue biting. Patient does have poorly contribute close, recently had insulin pump placed and patient notes her glucose control is much improved. No history of neuropathy, no previous EMG in the past. No weakness with her symptoms, does not falling. Does note that she is dropping things more but notes that she is clumsy. No paresthesias or pain to the groin. Patient does note that many years ago she did follow-up with neurology for paresthesias of the hands and feet. These 2 are episodic, occurring to all 4 limbs at once, lasting for few hours. Typically came on with long periods of standing, but could come on with long periods of sitting as well. These episodes still occur, occur a couple times a month. No diagnosis was made. 4 instances of hypersensitive face twice, one arm one leg, never together. Few months ago, started few months ago, topiramate long time. Never before. 1-2 days, pain is only when touched, uncomfotable without. Nothing on the left sided. No injuries to the head or neck. No weakness. No diagnoses of neuropathy. Never had an EMG. Does not feel fatigued afterwards, no incontience, no sympotm sto the groin. No frequent falling, unsteady and maybe dropping things. An additional MRI of the brain was obtained at that time and was normal. Most recent MRI was obtained within the year for daily persistent headache and this was also normal. X-rays of the lumbar and cervical spine were normal. Patient also reports episodes of lightheadedness, had a tilt table test and was told that she had elevated heart rate but was never diagnosed with POTS. Follow-up with cardiology, still sees her knot tier regularly. Has never been on any medications. Still endorses some lightheadedness with quickly changing position, no syncope. No family history of any neurologic disease. Labs/Imaging MRI brain W/WO 08/31/22 (obtained for [facility] in 07/18/22) IMPRESSION: No acute findings. No evidence of an acute infarction, intracranial hemorrhage, intracranial mass lesion or abnormal intracranial enhancement. Medications: Current Outpatient Medications Medication Sig Dispense Refill omeprazole (PRILOSEC) 20 mg capsule Take 1 capsule by mouth once daily for 14 days. 14 capsule 0 lamoTRIgine (LAMICTAL) 25 mg tablet Take 1 tablet by mouth once daily for 14 days, THEN 2 tablets once daily for 14 days. 42 tablet 0 ALPRAZolam (XANAX) 0.5 mg tablet Take 1 tablet by mouth twice daily as needed for up to 90 days. 60 tablet 2 insulin lispro (HUMALOG U-100 INSULIN) 100 unit/mL injection Use with insulin pump up to 120 units daily 40 mL 5 empagliflozin (JARDIANCE) 10 mg tablet Take 1 tablet by mouth daily with breakfast. 30 tablet 11 metoprolol succinate ER (TOPROL XL) 25 mg 24 hr tablet Take 1.5 tablets by mouth once daily. 135 tablet 1 OMNIPOD 5 G6 PODS, GEN 5, crtg Change pod every 48 hours. 45 Each 3 Blood-Glucose Transmitter (DEXCOM G6 TRANSMITTER) nicky Check glucose 4 times daily. 1 Each 3 Blood-Glucose Sensor (DEXCOM G6 SENSOR) nicky Check gluc (more content not included)... [facility] 04-17-2023 Miscellaneous Notes Addressed in mychart encounter Opal Malloy DO The patient is calling in - she was advised to speak to nurse triage regarding her symptoms. There are no change in symptoms since she was seen in the ED on 04/14/23.. She had previous virtual appt on 04/[address] Malloy - discussed possibly related to anxiety but her symptoms usually would resolve after a few hours, this has been ongoing x 7 days. She does state the ED suggested GERD and prescribed Prilosec. Pt states she has not taken any. She has been following up with cardiology for over a year too. Disposition: Go to ED now (or PCP Triage)..forwarded to PCP Reason for Disposition [1] Chest pain lasts > 5 minutes AND [2] occurred in past 3 days (72 hours) (Exception: feels exactly the same as previously diagnosed heartburn and has accompanying sour taste in mouth) Answer Assessment - Initial Assessment Questions 1. LOCATION: pressure on middle of chest and sometimes so intense it feels like it goes all the way through and can feel it in the back. 2. RADIATION: Denies any current radiation to neck, jaw, arms 3. ONSET: Chronic issue, however typically does not last for more than a couple hours. This has been an ongoing for 7 straight days 4. PATTERN: constant pressure, intermittent stabbing pain that will resolve itself within a few minutes 5. DURATION: see above 6. SEVERITY: at its worst 8/10 - MILD (1-3): doesn't interfere with normal activities - MODERATE (4-7): interferes with normal activities or awakens from sleep - SEVERE (8-10): excruciating pain, unable to do any normal activities 7. CARDIAC RISK FACTORS: diabetes DM2, some family history of heart disease - maternal and paternal grandmothers (CHF) 8. PULMONARY RISK FACTORS: asthma, KAISER 9. CAUSE: unk - used to think related to anxiety - but this is ongoing 10. OTHER SYMPTOMS: SOB x2 days (feels related to air quality, was not previously happening when chest tightness started); skin on arms, legs, trunk all hurt to the touch - scheduled to see neurology in next week - 1st referral appt). 11. : Denies LMP last week Protocols used: Chest [id number] documented in this encounter [facility] 04-17-2023 Miscellaneous Notes See Nurse Triage Encounter ED encounter 04/14 documented in this encounter [facility] 04-17-2023 Miscellaneous Notes No concern with the ECG. There were no acute ST changes. Troponin x 2 was normal. and not concerning for any acute infarction. Keep follow up as scheduled. documented in this encounter [facility] 04-12-2023 Note HNO ID: [id number] Author: Opal Malloy, DO Service: ? Author Type: Physician Type: Progress Notes Filed: 04/12/2023 1:44 PM Note Text: This visit was conducted as a virtual visit. Pt is currently at work. I have communicated my name and active licensure. The patient's identity and physical location were verified at the time of this visit. Either the patient or their legal insurance representative has been informed of the risks and benefits of -- and alternatives to -- treatment through a remote evaluation and consents to proceed with the evaluation remotely. CC: Anxiety HPI: 32 year old female presents for increased anxiety Having constant chest pain Describes as pressure States its work related Only sleeping 3-4 hours per night Having trouble falling asleep and staying asleep Also waking up early and then can't fall back to sleep Also having thoughts of self harm (bite, scratch or other types of self harm) Hasn't done anything though No thoughts of suicide Has bitten herself in past Counseling not helping Has talked to counselor 3 times this week Increased changes at work Boss just quit Increased responsibilities on her Currently on wellbutrin 300 mg and xanax Taking xanax daily and sometimes 2x a day Also on adderall xr Has been on sertraline in past but stopped because didn't feel it was working Wants to make impulsive decisions but doesn't Would like to drive off and leave Would like to drink etoh but liver doing well so she doesn't Brother and uncle with bipolar Feels like others in family undiagnosed She has some similar traits as them Objective: General appearance:Obese, well appearing, alert, in no acute distress, and well-hydrated, well nourished Psych: Posture and motor behavior: normal posture and motor behavior Dress, grooming, personal hygiene: normal dress and grooming Facial expression: good eye contact Speech: normal speech Mood: down Coherency and relevance of thought: normal thought processes Memory: normal memory ASSESSMENT/PLAN: 1. Mood disorder (HCC) - ICD9: 296.90, ICD10: F39 (primary diagnosis) 2. Anxiety and depression - ICD9: 300.00, 311, ICD10: F41.9, F32.A - continue bupropion and counseling - LAMOTRIGINE 25 MG TABLET 3. JONATHAN (generalized anxiety disorder) - ICD9: 300.02, ICD10: F41.1 - ALPRAZOLAM 0.5 MG TABLET Follow up in one month Opal Malloy DO [facility] 04-09-2023 Note Patient Outreach (BARRERA CALDERON) JULIETTE MARRUFO ([id number]) 1990 F Date Time Provider Department 04/09/23 KRIS MENDOZA During your visit today, we recorded the following information about you: Kris Mendoza MA 04/09/2023 9:36 AM Signed * POPULATION HEALTH NAVIGATION OUTREACH Action/FYI P/C to patient to schedule PCP appt, no answer. Left message for patient to return call. My chart message sent. HCC Gaps: K75.81 - TINAJERO (nonalcoholic steatohepatitis) - GIM Last Billed 12/27/2021 J45.909 - Asthma - PULL Last Billed 11/01/2021 Patient Identified by Name and : NO Outreach Outcome/Action Unable to reach patient: Left message MyChart message sent Did you use a PCP flex slot to schedule this appointment? N/A Reason for Outreach HCC or suspected condition Payer: Payor: userADgents / Plan: user[employer]ents OAP / Product Type: Open Access / Care Gap Reviewed:: Follow-up appointment Reminder: Reminder note to check Health Maintenance for items below Health Maintenance items due: HEPATITIS B(1 of 3 - 3-dose series) Never done Navigation Signature: Kris Mendoza MA April 09, 2023 9:28 AM Allergies As of Date: 04/09/2023 (No Known Allergies) Date Reviewed: 01/31/2023 Reviewed by: Esme Callejas APRN.FACILITIES ADMINISTRATOR - Fully Assessed Reason for Visit: Population Health Navigation Outreach [3910] Cmt: HCC List Prescriptions as of 04/09/2023 - amphetamine-dextroamphetamine XR (ADDERALL XR) 15 mg biphasic capsule Take 1 capsule by mouth once daily for 30 days. - insulin lispro (HUMALOG U-100 INSULIN) 100 unit/mL injection Use with insulin pump up to 120 units daily - empagliflozin (JARDIANCE) 10 mg tablet Take 1 tablet by mouth daily with breakfast. - metoprolol succinate ER (TOPROL XL) 25 mg 24 hr tablet Take 1.5 tablets by mouth once daily. - OMNIPOD 5 G6 PODS, GEN 5, crtg Change pod every 48 hours. - Blood-Glucose Transmitter (DEXCOM G6 TRANSMITTER) nicky Check glucose 4 times daily. - Blood-Glucose Sensor (DEXCOM G6 SENSOR) nicky Check glucose 4 times daily - tirzepatide (MOUNJARO) 10 mg/0.5 mL pen injector Inject 10 mg subcutaneously one time a week. - atorvastatin (LIPITOR) 20 mg tablet Take 1 tablet by mouth once daily. - magnesium oxide (MAG-OX) 400 mg (241.3 mg magnesium) tablet Take 1 tablet by mouth twice daily. - insulin degludec (TRESIBA FLEXTOUCH U-100) 100 unit/mL (3 mL) injection pen Inject 70 Units subcutaneously once daily. - albuterol HFA (PROAIR HFA) 90 mcg/actuation inhaler Inhale 2 Puffs as instructed every 4 hours as needed. - buPROPion XL (WELLBUTRIN XL) 300 mg 24 hr tablet Take 1 tablet by mouth once daily. - tranexamic acid (LYSTEDA) 650 mg tablet Take 2 tablets by mouth every 8 hours. during menses for heavy menstrual bleeding. Maximum of 5 days. - topiramate (TOPAMAX) 25 mg tablet take 1/2 tablet for 2 weeks then increase to a full tablet - loratadine (CLARITIN) 10 mg tablet Take 1 tablet by mouth once daily. - ondansetron (ZOFRAN) 4 mg tablet Take 1 tablet by mouth every 8 hours as needed for nausea/vomiting. - spironolactone (ALDACTONE) 100 mg tablet Take 1 tablet by mouth once daily. - blood sugar diagnostic (DekkoUCH VERIO TEST STRIPS) test strip Use as instructed to test blood sugar twice daily (on insulin) - Lancets lancets Use as instructed to test blood sugar twice daily (on insulin) - fluconazole (DIFLUCAN) 150 mg tablet Take 1 tablet PO q week x 6 months - Multivitamin capsule Take 1 capsule by mouth once daily. Problem List As Of Date 04/09/2023 Noted Resolved Asthma [J45.909] 08/06/2013 Irregular periods [N92.6] 08/06/2013 08/18/2015 PCOS (polycystic ovarian syndrome) [E28.2] 08/06/2013 Rash [R21] 08/06/2013 08/06/2013 Type 2 diabetes mellitus without retinopathy (H*12/18/2013 Counseling and coordination of care [Z71.89] 01/05/2015 05/25/2015 KAISER (obstructive sleep apnea) [G47.33] 11/09/2015 TINAJERO (nonalcoholic steatohepatitis) [K75.81] Severe obesity (BMI >= 40) (HCC) [E66.01] 05/04/2017 Microcytosis [R71.8] 08/15/2011 Vitamin D deficiency [E55.9] 11/27/2017 Myopia of both eyes with astigmatism [H52.13, H*12/13/2018 Family history of colonic polyps [Z83.71] 05/11/2020 Family history of colon cancer requiring screen*05/11/2020 05/11/2020 Polyp of sigmoid colon [K63.5] 05/11/2020 05/11/2020 [facility] current use of insulin (HCC) [Z79.4] 12/22/2020 Spasm of muscle [M62.838] 02/01/2021 Dizziness [R42] 11/01/2021 Complex cyst of left ovary [N83.292] 08/10/2022 Attention deficit disorder (ADD) without hypera*08/31/2022 Current moderate episode of major depressive di*08/31/2022 JONATHAN (generalized anxiety disorder) [F41.1] 08/31/2022 Encounter Status:Closed by KRIS MENDOZA on 04/09/23 [facility] 04-09-2023 Note HNO ID: [id number] Author: Kris Mendoza MA Service: ? Author Type: Manager Inside Type: Progress Notes Filed: 04/09/2023 9:36 AM Note Text: * POPULATION HEALTH NAVIGATION OUTREACH Action/FYI P/C to patient to schedule PCP appt, no answer. Left message for patient to return call. My chart message sent. HCC Gaps: K75.81 - TINAJERO (nonalcoholic steatohepatitis) - GIM Last Billed 12/27/2021 J45.909 - Asthma - PULL Last Billed 11/01/2021 Patient Identified by Name and : NO Outreach Outcome/Action Unable to reach patient: Left message MyChart message sent Did you use a PCP flex slot to schedule this appointment? N/A Reason for Outreach HCC or suspected condition Payer: Payor: HERACLIO / Plan: [employer] OAP / Product Type: Open Access / Care Gap Reviewed:: Follow-up appointment Reminder: Reminder note to check Health Maintenance for items below Health Maintenance items due: HEPATITIS B(1 of 3 - 3-dose series) Never done Navigation Signature: Kris Mendoza MA April 09, 2023 9:28 AM [facility] 04-09-2023 History of Present illness Narrative * POPULATION HEALTH NAVIGATION OUTREACH Action/FYI P/C to patient to schedule PCP appt, no answer. Left message for patient to return call. My chart message sent. HCC Gaps: K75.81 - TINAJERO (nonalcoholic steatohepatitis) - GIM Last Billed 12/27/2021
J45.909 - Asthma - PULL Last Billed 11/01/2021
Patient Identified by Name and : NO Outreach Outcome/Action Unable to reach patient: Left message MyChart message sent Did you use a PCP flex slot to schedule this appointment? N/A Reason for Outreach HCC or suspected condition Payer: Payor: userADgents / Plan: userADgents OAP / Product Type: Open Access / Care Gap Reviewed:: Follow-up appointment Reminder: Reminder note to check Health Maintenance for items below Health Maintenance items due: HEPATITIS B(1 of 3 - 3-dose series) Never done Navigation Signature: Kris Mendoza MA April 09, 2023 9:28 AM documented in this encounter [facility] 03-24-2023 Miscellaneous Notes Images from the original note were not included. Insulin Pump Training Post Follow Up Pt started on Omnipod 5 pump on March 14, 2023 Pt able to change infusion site yes Able to verify current pump settings yes Trouble shooting: none Patient concerns: none Comments: none Next follow up scheduled: none, pt will follow up with provider Provider follow up scheduled: 06/15/23 Basal rate adjustments- none Amibjbq-jboj-ycvzw adjustments- none Insulin sensitivity factor adjustments- none documented in this encounter [facility] 03-20-2023 Miscellaneous Notes Images from the original note were not included. Insulin Pump Training Post Follow Up Pt started on Omnipod 5 pump on March 14, 2023 Pt able to change infusion site yes Able to verify current pump settings yes Comments: pt doing very well. Called and left her a encouraging her to decrease her targets to 110 and to call me if she is having issues. MyCHart message also sent Next follow up scheduled: this week Provider follow up scheduled: 06/15/23 Basal rate adjustments- none Gbjomom-hegn-ynshw adjustments- none Insulin sensitivity factor adjustments- none documented in this encounter [facility] 03-16-2023 Miscellaneous Notes -Left voicemail providing number to call back for scheduling with neurology -Sent MyChart message asking to call back to schedule PDMP report reviewed The following approved medication requests have been transmitted electronically. Requested Prescriptions Signed Prescriptions Disp Refills amphetamine-dextroamphetamine XR (ADDERALL XR) 15 mg biphasic capsule 30 capsule 0 Sig: Take 1 capsule by mouth once daily for 30 days. Please assist in scheduling with neuro Opal Malloy DO documented in this encounter [facility] 03-16-2023 Miscellaneous Notes Insulin Pump Training Post Follow Up Pt started on Omnipod 5 pump on March 14, 2023 Pt able to change infusion site n/a Able to verify current pump settings yes Called pt and left detailed VM and sent Kardiumt message. Encouraged to pt change targets and correct above to 130 Next follow up scheduled: this week Provider follow up scheduled: 06/15/23 Basal rate adjustments- none Rkyaziq-cura-hhhuu adjustments- none Insulin sensitivity factor adjustments- none documented in this encounter [facility] 03-14-2023 Note HNO ID: [id number] Author: Destini Vinson RN Service: ? Author Type: Registered Nurse Type: Progress Notes Filed: 03/14/2023 3:46 PM Note Text: Type of visit: In person individual Patient started today on Omnipod 5 insulin pump. Type of training:new to pump If upgrade, patient was previously on the following pump:patient is new to pump Pump programming done today by: patient with educator supervision Insulin information: Last long-acting insulin type, dose, and time: Tresiba 70 units 03/13/23 6 am Temp basal rate set today:no temp basal set today Temp basal duration set today:no temp basal set today Rapid-acting insulin loaded into pump today: Humalog See phone encounter dated 03/02/23 for pump settings approved by provider and programmed into pump today. Infusion set information: Infusion set insertion done today by:patient with educator supervision Infusion set inserted in right thigh Pre-pump training and pump safety information: Patient can demonstrate correct use of a carb ratio:Yes Patient Verbalizes rules regarding when to change infusion set due to hyperglycemia: Yes Patient verbalizes importance of carrying a pump emergency kit:Yes Patient verbalizes back-up plan for pump failure:Yes Handouts provided: none Follow-up plan for glucose management given to patient: patient will upload pump for educator review in 3 day(s) Follow-up plan for education: Follow-up training needed:no follow-up training needed This is a non-billable encounter through [employer] but will be billed to the following pump company: [employer]. This visit note will be communicated to the healthcare provider via access to shared medical record. I spent 60 minutes with this patient today. Destini Vinson RN [facility] 03-14-2023 History of Present illness Narrative Type of visit: In person individual Patient started today on Omnipod 5 insulin pump. Type of training:new to pump If upgrade, patient was previously on the following pump:patient is new to pump Pump programming done today by: patient with educator supervision Insulin information: Last long-acting insulin type, dose, and time: Tresiba 70 units 03/13/23 6 am Temp basal rate set today:no temp basal set today Temp basal duration set today:no temp basal set today Rapid-acting insulin loaded into pump today: Humalog See phone encounter dated 03/02/23 for pump settings approved by provider and programmed into pump today. Infusion set information: Infusion set insertion done today by:patient with educator supervision Infusion set inserted in right thigh Pre-pump training and pump safety information: Patient can demonstrate correct use of a carb ratio:Yes Patient Verbalizes rules regarding when to change infusion set due to hyperglycemia: Yes Patient verbalizes importance of carrying a pump emergency kit:Yes Patient verbalizes back-up plan for pump failure:Yes Handouts provided: none Follow-up plan for glucose management given to patient: patient will upload pump for educator review in 3 day(s) Follow-up plan for education: Follow-up training needed:no follow-up training needed This is a non-billable encounter through [employer] but will be billed to the following pump company: [employer]. This visit note will be communicated to the healthcare provider via access to shared medical record. I spent 60 minutes with this patient today. Destini Vinson RN documented in this encounter [facility] 03-03-2023 Miscellaneous Notes I approve the doses below and authorize the Diabetes Educators to do pump adjustments per the instructions listed after the rates Rx for U100 vials sent to pharmacy This patient has received or will receive an insulin pump. PLEASE RESPOND TO THIS PHONE ENCOUNTER TO CONFIRM THE FOLLOWIN. That the suggested insulin pump start doses below are approved (or make changes as needed). 2. That you authorize the Diabetes Educators to do pump adjustments per the instructions listed after the rates (duration of educator providing adjustments: up to 2 weeks for upgrades, up to 4 weeks for new-to-pump). Helpful reminders to provider: 1. Order vials of insulin (type below) to be used in pump and update quantity per TDD below. 2. Update basal insulin in med list with instructions to be used prn when pump is not functional. 3. Add Insulin Pump Status to problem list. 4. Order the following test strips to be used with the new pump:will continue using current test strips Details: Scheduled insulin pump training date:03/14/23 Pump brand and model being started:Omnipod 5 Type of training:new to pump Type/brand of insulin to be used in pump:Humalog Estimated total daily dose (TDD): 90 units current per day or 68 units pre-pump. (Weight based 65 units per day) Initial pump settings: Max basal rates: 3 units/hr Basal Rates: 12am-12am 1.4 units/hr Target Glucose: 150 mg/dl Correct Above: 150 mg/dl Insulin to Carb Ratio: 12am-12am 6.5 g/unit Correction Factor: 12am-12am 25 mg/dl/unit Duration of Active Insulin: 3 hrs Max Bolus: 30 units Insulin pump adjustment instructions for the educator senior clinical: Basal rate adjustments: If the glucose readings during a fasting state (no food or bolus during testing period or in the 4 hours prior) increase by 30mg/dl during the time segment being tested, then increase the basal rate for that segment by 10%. If the glucose readings during a fasting state (no food or bolus during testing period or in the 4 hours prior) decrease by 30mg/dl during the time segment being tested, then decrease the basal rate for that segment by 10%. Hjqaytv-jc-nblx ratio (ICR) adjustments: If the 2-hour postprandial glucose level is >60mg/dl above the pre-meal glucose level (no correction dose at pre-meal), increase the ICR for that meal by 1 gram/unit (for example: an ICR of 1:15 would change to 1:14). If the 2-hour postprandial glucose level is <30mg/dl above the pre-meal glucose level (no correction dose at pre-meal), decrease the ICR for that meal by 2 grams/unit (for example: an ICR of 1:15 would change to 1:17). Insulin sensitivity factor (ISF) adjustments: If the 4-hour post-correction glucose level is above the pre-meal target range (no prandial dose given or food eaten with or after correction dose), increase the ISF used during that time of day by 10% (for example: an ISF of 1:50 would change to 1:45). If the 4-hour post-correction glucose level is below the pre-meal target range (no prandial dose given or food eaten with or after correction dose), decrease the ISF used during that time of day by 20% (for example: an ISF of 1:50 would change to 1:60). BG targets for adjustments are as follows unless otherwise specified: Fasting/pre-meal: 70-130 1-2 hour Post-meal: 100-180 Bedtime: 100-150 documented in this encounter [facility] 03-02-2023 Note HNO ID: [id number] Author: Destini Vinson RN Service: ? Author Type: Registered Nurse Type: Progress Notes Filed: 03/02/2023 10:19 AM Note Text: DIABETES SELF-MANAGEMENT EDUCATION AND SUPPORT Location: [place] Type of visit: In person individual Types of DSMES: Initial/Comprehensive (add to or update ADA spreadsheet) PATIENT'S MAIN CONCERN TODAY: none Support person present for education today: none Cognitive ability: Alert and oriented Motivation to learn: Interested Learning barriers identified by educator: none Method of instruction: verbal and computer INTERVENTIONS/TOPICS COVERED: -Medications: insulin pump instruction: pump benefits , pump requirements of user, pump limitations , closed loop mode vs manual mode, infusion set rotation, infusion set adherence options, activity mode, and insulin pump terminology: basal, bolus, sensitivity/correction factor, carb ratio, BG target, and ajupbps-qh-vcgyy/duration DIABETES ASSESSMENT: Referring Physician: Previous Diabetes Education? Yes, if so when? 2020 What are you hoping to gain from this visit? Omni Pod 5 pre- training- currently has pump In your words, what is diabetes? asked/not answered What concerns you about having diabetes? asked/not answered Diabetes History: Type of Diabetes: Type 2 What year were you diagnosed? asked/not answered Does anyone in your family have diabetes? yes cousins How do you learn best? 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 never How often does someone help you read your pill bottles? never How often does someone have to help you take care of your diabetes? never Major stressors:asked/not answered How do you manage stress? asked/not answered Do any of the following things get in the way of managing your diabetes? Asked/not answered Health History: Most recent eye exam: November Most recent dental exam:Asked/not answered Most recent foot exam:July How often do you inspect your feet at home? Asked/Not answered Do you use tobacco? No Do you use alcohol? Yes, How much? rare In the past 12 months have you had any: Hospital Admissions: Asked/not answered ER Visits: Asked/not answered Primary Care Visits: Yes, Number of Times? 5 What are your general feelings about you overall health? Asked/not answered Medical Issues/Complications: None PAST MEDICAL HISTORY Diagnosis Date Anxiety and depression Asthma Complex cyst of left ovary 08/10/2022 Diabetes mellitus (HCC) H/O cold sores TINAJERO (nonalcoholic steatohepatitis) KAISER (obstructive sleep apnea) PCOS (polycystic ovarian syndrome) Most recent A1C Lab Results Component Value Date HBA1C 9.1 01/31/2023 HBA1C 12.5 11/01/2022 HBA1C 12.6 06/27/2022 HBA1C 7.0 09/02/2021 HBA1C 10.9 01/11/2021 HBA1C 7.6 06/25/2019 HBA1C 7.7 11/03/2018 Physical Activity: Do you do a regular exercise? Asked/not answered Sick Days: How do you manage your diabetes when you are sick? Asked/not answered Sleep: Do you get at least 7 hrs of sleep most nights? asked/not answered Current Outpatient Medications Medication Sig empagliflozin (JARDIANCE) 10 mg tablet Take 1 tablet by mouth daily with breakfast. metoprolol succinate ER (TOPROL XL) 25 mg 24 hr tablet Take 1.5 tablets by mouth once daily. OMNIPOD 5 G6 INTRO KIT, GEN 5, crtg Change pod every 48 hours. OMNIPOD 5 G6 PODS, GEN 5, crtg Change pod every 48 hours. Blood-Glucose Transmitter (DEXCOM G6 TRANSMITTER) nicky Check glucose 4 times daily. Blood-Glucose Sensor (DEXCOM G6 SENSOR) nicky Check glucose 4 times daily tirzepatide (MOUNJARO) 10 mg/0.5 mL pen injector Inject 10 mg subcutaneously one time a week. atorvastatin (LIPITOR) 20 mg tablet Take 1 tablet by mouth once daily. magnesium oxide (MAG-OX) 400 mg (241.3 mg magnesium) tablet Take 1 tablet by mouth twice daily. amphetamine-dextroamphetamine XR (ADDERALL XR) 15 mg 24 hr capsule Take 1 capsule by mouth once daily for 30 days. insulin degludec (TRESIBA FLEXTOUCH U-100) 100 unit/mL (3 mL) injection pen Inject 70 Units subcutaneously once daily. insulin lispro (HUMALOG KWIKPEN) 100 unit/mL Inject up to 20 units three times daily with meals albuterol HFA (PROAIR HFA) 90 mcg/actuation inhaler Inhale 2 Puffs as instructed every 4 hours as needed. buPROPion XL (WELLBUTRIN XL) 300 mg 24 hr tablet Take 1 tablet by mouth once daily. tranexamic acid (LYSTEDA) 650 mg tablet Take 2 tablets by mouth every 8 hours. during menses for heavy menstrual bleeding. Maximum of (more content not included)... [facility] 03-02-2023 History of Present illness Narrative DIABETES SELF-MANAGEMENT EDUCATION AND SUPPORT Location: [place] Type of visit: In person individual Types of DSMES: Initial/Comprehensive (add to or update ADA spreadsheet) PATIENT'S MAIN CONCERN TODAY: none Support person present for education today: none Cognitive ability: Alert and oriented Motivation to learn: Interested Learning barriers identified by educator: none Method of instruction: verbal and computer INTERVENTIONS/TOPICS COVERED: -Medications: insulin pump instruction: pump benefits , pump requirements of user, pump limitations , closed loop mode vs manual mode, infusion set rotation, infusion set adherence options, activity mode, and insulin pump terminology: basal, bolus, sensitivity/correction factor, carb ratio, BG target, and rmajrbc-ke-wgwgy/duration DIABETES ASSESSMENT: Referring Physician: Previous Diabetes Education? Yes, if so when? 2020 What are you hoping to gain from this visit? Omni Pod 5 pre- training- currently has pump In your words, what is diabetes? asked/not answered What concerns you about having diabetes? asked/not answered Diabetes History: Type of Diabetes: Type 2 What year were you diagnosed? asked/not answered Does anyone in your family have diabetes? yes cousins How do you learn best? 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 never How often does someone help you read your pill bottles? never How often does someone have to help you take care of your diabetes? never Major stressors:asked/not answered How do you manage stress? asked/not answered Do any of the following things get in the way of managing your diabetes? Asked/not answered Health History: Most recent eye exam: November Most recent dental exam:Asked/not answered Most recent foot exam:July How often do you inspect your feet at home? Asked/Not answered Do you use tobacco? No Do you use alcohol? Yes, How much? rare In the past 12 months have you had any: Hospital Admissions: Asked/not answered ER Visits: Asked/not answered Primary Care Visits: Yes, Number of Times? 5 What are your general feelings about you overall health? Asked/not answered Medical Issues/Complications: None PAST MEDICAL HISTORY Diagnosis Date Anxiety and depression Asthma Complex cyst of left ovary 08/10/2022 Diabetes mellitus (HCC) H/O cold sores TINAJERO (nonalcoholic steatohepatitis) KAISER (obstructive sleep apnea) PCOS (polycystic ovarian syndrome) Most recent A1C Lab Results Component Value Date HBA1C 9.1 01/31/2023 HBA1C 12.5 11/01/2022 HBA1C 12.6 06/27/2022 HBA1C 7.0 09/02/2021 HBA1C 10.9 01/11/2021 HBA1C 7.6 06/25/2019 HBA1C 7.7 11/03/2018 Physical Activity: Do you do a regular exercise? Asked/not answered Sick Days: How do you manage your diabetes when you are sick? Asked/not answered Sleep: Do you get at least 7 hrs of sleep most nights? asked/not answered Current Outpatient Medications Medication Sig empagliflozin (JARDIANCE) 10 mg tablet Take 1 tablet by mouth daily with breakfast. metoprolol succinate ER (TOPROL XL) 25 mg 24 hr tablet Take 1.5 tablets by mouth once daily. OMNIPOD 5 G6 INTRO KIT, GEN 5, crtg Change pod every 48 hours. OMNIPOD 5 G6 PODS, GEN 5, crtg Change pod every 48 hours. Blood-Glucose Transmitter (DEXCOM G6 TRANSMITTER) nicky Check glucose 4 times daily. Blood-Glucose Sensor (DEXCOM G6 SENSOR) nicky Check glucose 4 times daily tirzepatide (MOUNJARO) 10 mg/0.5 mL pen injector Inject 10 mg subcutaneously one time a week. atorvastatin (LIPITOR) 20 mg tablet Take 1 tablet by mouth once daily. magnesium oxide (MAG-OX) 400 mg (241.3 mg magnesium) tablet Take 1 tablet by mouth twice daily. amphetamine-dextroamphetamine XR (ADDERALL XR) 15 mg 24 hr capsule Take 1 capsule by mouth once daily for 30 days. insulin degludec (TRESIBA FLEXTOUCH U-100) 100 unit/mL (3 mL) injection pen Inject 70 Units subcutaneously once daily. insulin lispro (HUMALOG KWIKPEN) 100 unit/mL Inject up to 20 units three times daily with meals albuterol HFA (PROAIR HFA) 90 mcg/actuation inhaler Inhale 2 Puffs as instructed every 4 hours as needed. buPROPion XL (WELLBUTRIN XL) 300 mg 24 hr tablet Take 1 tablet by mouth once daily. tranexamic acid (LYSTEDA) 650 mg tablet Take 2 tablets by mouth every 8 hours. during menses for heavy menstrual bleeding. Maximum of 5 days. topiramate (TOPAMAX) 25 mg tablet take 1/2 tablet for 2 weeks then increase to a full tablet loratadine (CLARITIN) 10 mg tablet Take 1 tablet by mouth once daily. ondansetron (ZOFRAN) 4 mg tablet Take 1 tablet by mouth every 8 hours as needed for nausea/vomiting. spironolactone (ALDACTONE) 100 mg tablet Take 1 tablet by mouth once daily. blood sugar diagnostic (ONETOUCH VERIO TEST STRIPS) test strip Use as instructed to test blood sugar twice daily (on insulin) Lancets lancets Use as instructed to test blood sugar twice daily (on insulin) fluconazole (DIFLUCAN) 150 mg tablet Take 1 tablet PO q week x 6 months Multivitamin capsule Take 1 capsule by mouth once daily. No current facility-administered medications for this visit. Medications for Diabetes: Name of Medication Dose When taken How often missed jardiance tresiba humalog Injections Technique: Do you take insulin or a medication you inject for your diabetes? Yes;then if so answer the following questions: How do you inject your medicine Pen Where are your injections done? Asked/not answered Who prepares your syringes, pen, or pump infusion set? Self Who gives you injections or changes your pump sites? Me Where do you throw away your needles? Trash Blood Sugar Monitoring: Do you have a blood sugar monitor? Yes; What kind of meter is it? Dexcom G6 or 7 Management of Low Blood Sugar: What has been your lowest blood sugar in the last month? asked/not answered What are your symptoms of lows?Asked/not answered How do you treat lows? asked/not answered Do you drive? asked/not answered Management of High Blood Sugar: What has been you highest blood sugar in the last month? asked/not answered What are your symptoms of highs? Asked/not answered How do you treat your highs? asked/not answered Meal Planning: Are you currently following any meal plan? Starting to practice Carb counting Reproductive Status (Females): Have you reached menopause? No. Are you currently ? no EDUCATION HANDOUTS: None LEARNING RESPONSE: Diabetes pathophysiology: Demonstrated understanding/competency today or at previous visit Healthy eating: Demonstrated understanding/competency today or at previous visit Being active: Demonstrated understanding/competency today or at previous visit Taking medications: Demonstrated understanding/competency today or at previous visit Monitoring glucose: Demonstrated understanding/competency today or at previous visit Acute complications: Demonstrated understanding/competency today or at previous visit Chronic complications: Demonstrated understanding/competency today or at previous visit Healthy coping: Demonstrated understanding/competency today or at previous visit Diabetes distress and support: Demonstrated understanding/competency today or at previous visit PATIENT SELECTED THE FOLLOWING GOALS: -Pt declined POSSIBLE FUTURE TOPICS: 1. The following topics were not assessed due to time limitations, but should be assessed at the next visit: all areas were assessed today or within the last 12 months. 2. The following topics should be taught or reinforced at the next visit: per pt needs- Omni Pod 5 training. DIABETES EDUCATION PLAN: Individual follow-up 2 weeks for Omni Pod 5 training Time Spent (Minutes): 60 This visit note will be communicated to the healthcare provider via access to shared medical record. SIGNATURE: Destini Vinson RN PATIENT NAME: Juliette Marrufo DATE: March 02, 2023 TIME: 7:57 AM PAGER: documented in this encounter [facility] 02-07-2023 Miscellaneous Notes Pre-pump Training Assessment Type of insulin pump to be started: Omnipod 5 Type of training:new to pump If upgrade, previous pump :patient is new to pump Current CGM: DEXCOM In need of training for CGM: no If Omni Pod 5, Dexcom on Smart Phone: Yes Current insulin therapy : Injection Type/brand of insulin to be used in pump:Humalog Estimated total daily dose (TDD): 70 Trisiba and 15 humalog (still forgets insulin) units Current use of I:C ratio: YES/NO: No Current use of correction scale (sliding scale): YES/NO: Yes Current use of Insulin Sensitivity Factor: YES/NO: No Instructed on adjusting insulin prior to pump start: YES/NO: No Do you have trouble identifying symptoms of low blood sugars below 70?: YES/NO: No Have you been diagnosed with hypoglycemia unawareness: YES/NO: No Do you have a prescription for Glucagon: YES/NO: No Able to explain pump therapy concepts: Basal/bolus, IOB, I:C ratio, correction factor, duration of insulin action? YES/NO: No Able to explain troubleshooting: hypo/hyperglycemia, DKA, site issues, back up supplies? YES/NO: No Understanding of AID systems: CGM,automated mode and manual mode? YES/NO: No Pre-pump training recommendations/instructions: pt scheduled for pre-pump training Orders sent to provider: YES/NO: No Orders obtained: YES/NO: No Scheduled insulin pump training date:TBD Left message on voice mail to call this educator senior clinical at [phone]. documented in this encounter [facility] 02-06-2023 Miscellaneous Notes Requester: Patient Patients last Endocrinology visit occurred 01/31/23. Follow-up evaluation has been established 06/15/23. Requested Prescriptions Pending Prescriptions Disp Refills empagliflozin (JARDIANCE) 10 mg tablet 30 tablet 11 Sig: Take 1 tablet by mouth daily with breakfast. If patient is due for an appointment please route to provider for refill consideration and also to the endo scheduling pool. PSS NOTE: Patient needs scheduled appointment No documented in this encounter [facility] 02-06-2023 Miscellaneous Notes The following approved medication requests have been transmitted electronically. Requested Prescriptions Signed Prescriptions Disp Refills metoprolol succinate ER (TOPROL XL) 25 mg 24 hr tablet 135 tablet 1 Sig: Take 1.5 tablets by mouth once daily. Authorizing Provider: TANJA BRIDGES APRN.SIRISHA Patient has been identified by name and date of : Yes Patient phones requesting refills as follows: Requested Prescriptions Pending Prescriptions Disp Refills metoprolol succinate ER (TOPROL XL) 25 mg 24 hr tablet Sig: Take 1.5 tablets by mouth once daily. Last appointment: 11/29/2022 Next scheduled appointment: Appointments for Next 60 Days Date Time Provider Location Dept Phone 02/21/2023 8:40 AM [facility] [phone] RX INSTRUCTIONS: Respond to pharmacy Michelle Hughes RN documented in this encounter [facility] 01-31-2023 Note HNO ID: [id number] Author: Esme Callejas APRN.SIRISHA Service: ? Author Type: Nurse Practitioner Type: Progress Notes Filed: 01/31/2023 8:24 AM Note Text: Endocrinology Follow-up History of Present Illness Juliette Marrufo is a 32 year old female presents today for follow up of DM Type 2. At [facility] switched Trulicity to Mounjaro. Tolerating well aside from having sulfur burps a few days after injection. This is helping to reduce her appetite (less desserts and only having pop 3 days per a week). She has not lost weight however. She is taking pills and Mounjaro consistently. Has not lost weigh. Still having difficulty getting insulins in consistently (only taking 1-2 times per week). She can't keep them in her car due to changes in weather. She is interested in an insulin pump and feels this would help her stay on track with taking her insulin. Would like to pursue OP5. Today's HbA1c is 9.1%. Historically when stressed she has stopped her medications/insulin. Glucose is well controlled when taking regimen consistently. She has a good support system- sees a counselor and has her boyfriend. She also has a few friends who text her daily to check if she has taken her medication. She is not currently following with weight management as she had to miss work for appointments and this was added stress. She prefers in person appointments for accountability. Date of Diagnosis: 2012, preceded by PCOS for years Last HbA1c: Hemoglobin A1C (%) Date Value 06/27/2022 12.6 01/11/2021 10.9 06/25/2019 7.6 11/03/2018 7.7 07/23/2018 11.0 01/30/2018 9.4 Hemoglobin A1C (POCT) (%) Date Value 01/31/2023 9.1 11/01/2022 12.5 09/02/2021 7.0 05/27/2021 9.2 10/04/2019 7.9 Complications Microvascular: none Macrovascular: none Associated diagnoses/complications are: PCOS with clinical and biochemical hyperandrogenism/ irregular periods/ fertility issues, periods regular in the last couple years, on BCPs, sees Dr Bland. TINAJERO (liver biopsy showed stage 2 fibrosis), seen by Hepatology Dr Mireles. HPL managed by PCP, on statin. Depression, followed by PCP. Asthma, sleep apnea s/p cholecx 2012 Diabetic Foot and Retinal Eye Exam not Overdue Physical Activity: Sedentary Diet: CHO Controlled Diet SMBG Frequency of Monitoring: Four times a Day using Dexcom Summary of Personal CGM Findings: Dates worn: 01/18/2023-01/31/2023 CGM Type: Dexcom 1- CGM recording is adequate for interpretation. Worn 57% of time. 2- Average glucose is 289 mg/dl. 3. <1% time in range 70-180mg/dL 4. Coefficient of variation: 18.2% 5. Total frequency of hypoglycemia: 0% with BG<70 * Hypoglycemia patterns: none *Nocturnal hypoglycemia none noted 6- Hyperglycemic episodes 99% with BG>180 * Hyperglycemia Patterns: globally Previous DM meds: Jardiance- caused yeast infections in the past, but no issues so far since restarting Metformin- GI SE Current DM Related Medications: Current Medications 01/31/2023 DIABETES THERAPIES Medication Dosage Pharm Subclass insulin degludec (TRESIBA FLEXTOUCH U-100) 100 unit/mL (3 mL) injection pen Inject 70 Units subcutaneously once daily. Insulin Analogs - Long Acting insulin lispro (HUMALOG KWIKPEN) 100 unit/mL Inject up to 20 units three times daily with meals Insulin Analogs - Rapid Acting JARDIANCE 10 mg tablet Take 1 tablet by mouth once daily with breakfast Antihyperglycemic - Sodium Glucose Cotransporter-2 (SGLT2) Inhibitors tirzepatide (MOUNJARO) 7.5 mg/0.5 mL pen injector Inject 7.5 mg subcutaneously one time a week. Antihyperglycemic - Dual GIP and GLP-1 Receptor Agonists CARDIOVASCULAR Medication Dosage Pharm Subclass atorvastatin (LIPITOR) 20 mg tablet Take 1 tablet by mouth once daily. Antihyperlipidemic - HMG CoA Reductase Inhibitors (statins) metoprolol succinate ER (TOPROL XL) 25 mg 24 hr tablet Take 1.5 tablets by mouth once daily. Beta Blockers Cardiac Selective DIURETICS Medication Dosage Pharm Subclass spironolactone (ALDACTONE) 100 mg tablet Take 1 tablet by mouth once daily. Diuretic - Aldosterone Receptor Antagonist, Non-selective OTHER Medication Dosage Pharm Subclass albuterol HFA (PROAIR HFA) 90 mcg/actuation inhaler Inhale 2 Puffs as instructed every 4 hours as needed. Asthma/COPD Therapy - Beta 2-Adrenergic Agents, Inhaled, Short Acting ALPRAZolam (XANAX) 0.5 mg tablet Take 1 tablet by mouth once daily as needed for up to 90 days. Antianxiety Agent - Benzodiazepines amphetamine-dextroamphetamine XR (ADDERALL XR) 15 mg 24 hr capsule Take 1 capsule by mouth once daily for 30 days. WOOD FINISHER APPRENTICE Stimulant - Amphetamine Combinations blood sugar diagnostic (DekkoUCH VERIO TEST STRIPS) test strip Use as instructed to test blood sugar twice daily (on insulin) Medical Supplies and DME - Blood Glucose Tests Blood-Glucose Sensor (Zoobean G7 SENSOR) nicky Check glucose 4 times daily Medical Supplies and DME - G (more content not included)... [facility] 01-31-2023 Instructions Esme Callejas APRN.SIRISHA - 01/31/2023 8:08 AM EDT Plan Continue: Jardiance 10 mg once daily Tresiba 70 units daily Humalog 30 units TID with meals Increase: Mounjaro 10 mg daily Check your blood sugar 4 times daily and record in log book to bring to all appointments. Bring your meter to all appointments as well. Glucose targets as: Fasting 90-130, before meals 100-130, and bedtime under 150 mg/dL. Notify office for consistently elevated or any low blood sugars <70 Follow up with me in 3 months documented in this encounter [facility] 01-31-2023 History of Present illness Narrative Endocrinology Follow-up History of Present Illness Juliette Marrufo is a 32 year old female presents today for follow up of DM Type 2. At [facility] switched Trulicity to Mounjaro. Tolerating well aside from having sulfur burps a few days after injection. This is helping to reduce her appetite (less desserts and only having pop 3 days per a week). She has not lost weight however. She is taking pills and Mounjaro consistently. Has not lost weigh. Still having difficulty getting insulins in consistently (only taking 1-2 times per week). She can't keep them in her car due to changes in weather. She is interested in an insulin pump and feels this would help her stay on track with taking her insulin. Would like to pursue OP5. Today's HbA1c is 9.1%. Historically when stressed she has stopped her medications/insulin. Glucose is well controlled when taking regimen consistently. She has a good support system- sees a counselor and has her boyfriend. She also has a few friends who text her daily to check if she has taken her medication. She is not currently following with weight management as she had to miss work for appointments and this was added stress. She prefers in person appointments for accountability. Date of Diagnosis: 2012, preceded by PCOS for years Last HbA1c: Hemoglobin A1C (%) Date Value 06/27/2022 12.6 01/11/2021 10.9 06/25/2019 7.6 11/03/2018 7.7 07/23/2018 11.0 01/30/2018 9.4 Hemoglobin A1C (POCT) (%) Date Value 01/31/2023 9.1 11/01/2022 12.5 09/02/2021 7.0 05/27/2021 9.2 10/04/2019 7.9 Complications Microvascular: none Macrovascular: none Associated diagnoses/complications are: PCOS with clinical and biochemical hyperandrogenism/ irregular periods/ fertility issues, periods regular in the last couple years, on BCPs, sees Dr Bland. TINAJERO (liver biopsy showed stage 2 fibrosis), seen by Hepatology Dr Mireles. HPL managed by PCP, on statin. Depression, followed by PCP. Asthma, sleep apnea s/p cholecx 2011 Diabetic Foot and Retinal Eye Exam not Overdue Physical Activity: Sedentary Diet: CHO Controlled Diet SMBG Frequency of Monitoring: Four times a Day using Dexcom Summary of Personal CGM Findings: Dates worn: 01/18/2023-01/31/2023 CGM Type: Dexcom 1- CGM recording is adequate for interpretation. Worn 57% of time. 2- Average glucose is 289 mg/dl. 3. <1% time in range 70-180mg/dL 4. Coefficient of variation: 18.2% 5. Total frequency of hypoglycemia: 0% with BG<70 * Hypoglycemia patterns: none *Nocturnal hypoglycemia none noted 6- Hyperglycemic episodes 99% with BG>180 * Hyperglycemia Patterns: globally Previous DM meds: Jardiance- caused yeast infections in the past, but no issues so far since restarting Metformin- GI SE Current DM Related Medications: Current Medications 01/31/2023 DIABETES THERAPIES Medication Dosage Pharm Subclass insulin degludec (TRESIBA FLEXTOUCH U-100) 100 unit/mL (3 mL) injection pen Inject 70 Units subcutaneously once daily. Insulin Analogs - Long Acting insulin lispro (HUMALOG KWIKPEN) 100 unit/mL Inject up to 20 units three times daily with meals Insulin Analogs - Rapid Acting JARDIANCE 10 mg tablet Take 1 tablet by mouth once daily with breakfast Antihyperglycemic - Sodium Glucose Cotransporter-2 (SGLT2) Inhibitors tirzepatide (MOUNJARO) 7.5 mg/0.5 mL pen injector Inject 7.5 mg subcutaneously one time a week. Antihyperglycemic - Dual GIP and GLP-1 Receptor Agonists CARDIOVASCULAR Medication Dosage Pharm Subclass atorvastatin (LIPITOR) 20 mg tablet Take 1 tablet by mouth once daily. Antihyperlipidemic - HMG CoA Reductase Inhibitors (statins) metoprolol succinate ER (TOPROL XL) 25 mg 24 hr tablet Take 1.5 tablets by mouth once daily. Beta Blockers Cardiac Selective DIURETICS Medication Dosage Pharm Subclass spironolactone (ALDACTONE) 100 mg tablet Take 1 tablet by mouth once daily. Diuretic - Aldosterone Receptor Antagonist, Non-selective OTHER Medication Dosage Pharm Subclass albuterol HFA (PROAIR HFA) 90 mcg/actuation inhaler Inhale 2 Puffs as instructed every 4 hours as needed. Asthma/COPD Therapy - Beta 2-Adrenergic Agents, Inhaled, Short Acting ALPRAZolam (XANAX) 0.5 mg tablet Take 1 tablet by mouth once daily as needed for up to 90 days. Antianxiety Agent - Benzodiazepines amphetamine-dextroamphetamine XR (ADDERALL XR) 15 mg 24 hr capsule Take 1 capsule by mouth once daily for 30 days. 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 Medical Supplies and DME - Glucose Monitoring Test Supplies buPROPion XL (WELLBUTRIN XL) 300 mg 24 hr tablet Take 1 tablet by mouth once daily. Antidepressant-Norepinephrine and Dopamine Reuptake Inhibitors (NDRIs) flash glucose scanning reader (EatSTYLE SOPHIE 2 READER) Use as directed to check blood sugar 4 times per day and as needed for symptoms of low sugar Medical Supplies and DME - Glucose Monitoring Test Supplies flash glucose sensor (FREESTYLE SOPHIE 2 SENSOR) kit Apply 1 sensor to the back of the arm every 14 days to monitor blood sugar 4x/day and as needed for symptoms of low sugar. Rotate site Medical Supplies and DME - Glucose Monitoring Test Supplies fluconazole (DIFLUCAN) 150 mg tablet Take 1 tablet PO q week x 6 months Antifungal - Triazoles Lancets lancets Use as instructed to test blood sugar twice daily (on insulin) Medical Supplies and DME - Glucose Monitoring Test Supplies loratadine (CLARITIN) 10 mg tablet Take 1 tablet by mouth once daily. Antihistamines - 2nd Generation magnesium oxide (MAG-OX) 400 mg (241.3 mg magnesium) tablet Take 1 tablet by mouth twice daily. Antacid - Magnesium Multivitamin capsule Take 1 capsule by mouth once daily. Multivitamins ondansetron (ZOFRAN) 4 mg tablet Take 1 tablet by mouth every 8 hours as needed for nausea/vomiting. Antiemetic - Selective Serotonin 5-HT3 Antagonists topiramate (TOPAMAX) 25 mg tablet take 1/2 tablet for 2 weeks then increase to a full tablet Anticonvulsant - Monosaccharide Derivatives tranexamic acid (LYSTEDA) 650 mg tablet Take 2 tablets by mouth every 8 hours. during menses for heavy menstrual bleeding. Maximum of 5 days. Hemostatic Systemic - Antifibrinolytic Agents Past History, Medications, Allergies PAST MEDICAL HISTORY Diagnosis Date Anxiety and depression Asthma Complex cyst of left ovary 08/10/2022 Diabetes mellitus (HCC) H/O cold sores TINAJERO (nonalcoholic steatohepatitis) KAISER (obstructive sleep apnea) PCOS (polycystic ovarian syndrome) PAST SURGICAL HISTORY Procedure Laterality Date REMOVAL GALLBLADDER 09/01/2011 ALLERGIES No Known Allergies FAMILY HISTORY Problem Relation Age of Onset No Ocular Disease Maternal Grandfather other (lung cancer) Maternal Grandfather Cervical Cancer Mother No Ocular Disease Mother Psoriasis Mother No Ocular Disease Father other (Lung problem) Father No Ocular Disease Maternal Grandmother No Ocular Disease Paternal Grandmother No Ocular Disease Paternal Grandfather other (Colon polyps) Paternal Uncle Social History Tobacco Use Smoking status: Never Smokeless tobacco: Never Vaping Use Vaping Use: Never used Substance Use Topics Alcohol use: Yes Comment: rare. about 5x per year Drug use: No Review of Systems GENERAL: No weight loss, malaise or fevers RESPIRATORY: Negative for cough, hemoptysis, wheezing, COPD, dyspnea or shortness of breath CARDIOVASCULAR: Negative for chest pain, leg swelling, hypertension, CHF or palpitations GI: No nausea, vomiting, or diarrhea ENDOCRINE: Negative for cold or heat intolerance, polyuria, polydipsia and goiter NEUROLOGIC:Negative for focal numbness or weakness, headaches and dizziness or syncope. Physical examination BP 114/74 (BP Site: Right Arm, BP Position: Sitting, BP Cuff Size: Regular Adult) Pulse 76 Ht 176.5 cm (5' 9.5 ) Wt 129.7 kg (286 lb) LMP 01/16/2023 (Approximate) BMI 41.63 kg/m General appearance: Well appearing, alert, in no acute distress, well-hydrated, well nourished. and Obese Skin: Skin color, texture, turgor normal, no suspicious rashes or lesions HEART: normal rate LUNGS: unlabored, normal respiratory rate EXTREMITIES No deformities, No skin discoloration and No edema NEURO: Speech normal, mental status intact, no tremor noted. Previous Laboratory Results LABS Glucose (mg/dL) Date Value 01/02/2023 239 06/27/2022 354 07/09/2021 128 06/01/2021 136 01/11/2021 273 Potassium (mmol/L) Date Value 01/02/2023 4.5 07/09/2021 4.1 Sodium (mmol/L) Date Value 01/02/2023 134 06/27/2022 133 07/09/2021 140 06/01/2021 139 01/11/2021 133 Chloride (mmol/L) Date Value 01/02/2023 100 06/27/2022 97 07/09/2021 105 06/01/2021 104 01/11/2021 102 CO2 (mmol/L) Date Value 01/02/2023 24 06/27/2022 23 07/09/2021 24 06/01/2021 23 01/11/2021 21 Creatinine (mg/dL) Date Value 01/02/2023 0.58 06/27/2022 0.54 07/09/2021 0.81 06/01/2021 0.65 01/11/2021 0.59 BUN (mg/dL) Date Value 01/02/2023 8 06/27/2022 9 07/09/2021 8 06/01/2021 7 01/11/2021 7 Anion Gap (mmol/L) Date Value 01/02/2023 10 06/27/2022 13 07/09/2021 11 06/01/2021 12 01/11/2021 10 Calcium (mg/dL) Date Value 07/09/2021 9.5 06/01/2021 9.5 01/11/2021 9.1 Calcium, Total (mg/dL) Date Value 01/02/2023 9.3 06/27/2022 9.4 eGFR- (no units) Date Value 07/09/2021 >60 06/01/2021 >60 01/11/2021 >60 eGFR-All Other Races (.) Date Value 07/09/2021 >60 06/01/2021 >60 01/11/2021 >60 Estimated Glomerular Filtration Rate (mL/min/1.73m ) Date Value 01/02/2023 123 06/27/2022 125 ALT (U/L) Date Value 01/02/2023 32 07/09/2021 18 06/01/2021 27 12/02/2019 45 TSH Date Value Ref Range Status 05/20/2022 1.040 0.270 - 4.200 mIU/L Final Comment: If the patient is , TSH reference range varies by gestational period: First Trimester (weeks 9-12): 0.180-2.990 mIU/L Second Trimester: 0.110-3.980 mIU/L Third Trimester: 0.480-4.710 mIU/L Andrew Erickson et al. A Practical Approach for the Verifications and Determination of Site- and Trimester-Specific Reference Intervals for Thyroid Function tests in . Thyroid, 2019:29:3:412-420. Samuel Ervin et al. 2017 Guidelines of the [place] Thyroid Association for the Diagnosis and Management of Thyroid Disease during and the . Thyroid, 2017:27:3:315-389. 07/09/2021 0.699 0.270 - 4.200 uU/mL Final Comment: If the patient is , TSH reference range varies by gestational period: First Trimester (weeks 9-12): 0.180-2.990 mcIU/mL Second Trimester: 0.110-3.980 mcIU/mL Third Trimester: 0.480-4.710 mcIU/mL Andrew Erickson et al. A Practical Approach for the Verifications and Determination of Site- and Trimester-Specific Reference Intervals for Thyroid Function tests in . Thyroid, 2019:29:3:412-420. Samuel Ervin et al. 2017 Guidelines of the [place] Thy[employer] Association for the Diagnosis and Management of Thyroid Disease during and the . Thyroid, 2017:27:3:315-389. 12/02/2019 1.350 0.270 - 4.200 uU/mL Final Comment: If the patient is , TSH reference range varies by gestational period: First Trimester (weeks 9-12): 0.180-2.990 mcIU/mL Second Trimester: 0.110-3.980 mcIU/mL Third Trimester: 0.480-4.710 mcIU/mL Andrew Erickson et al. A Practical Approach for the Verifications and Determination of Site- and Trimester-Specific Reference Intervals for Thyroid Function tests in . Thyroid, 2019:29:3:412-420. Samuel Ervin, et al. 2017 Guidelines of the [place] Thyroid Association for the Diagnosis and Management of Thyroid Disease during and the . Thyroid, 2017:27:3:315-389. Free T4 Date Value Ref Range Status 06/25/2019 1.0 0.9 - 1.7 ng/dL Final 05/31/2017 1.0 0.9 - 1.7 ng/dL Final 06/15/2015 1.1 0.7 - 1.8 ng/dL Final Impression/Recommendations IMPRESSION Juliette Marrufo is a 32 year old here for evaluation of DM Type 2 with no known complications. HbA1c is 9.1%. RECOMMENDATIONS: 1. Glycemic control: Target HbA1C is less than 7.0% per ADA guidelines. Not at target. Historically glucose is well controlled while taking medications consistently. Several barriers to compliance with regimen, including having insulin with her at work. She would greatly benefit from an insulin pump. Will pursue OP5. I have advised as follows: Plan Continue: Jardiance 10 mg once daily Tresiba 70 units daily Humalog 30 units TID with meals Increase: Mounjaro 10 mg daily I will reach out to [employer] 5 rep Check your blood sugar 4 times daily and record in log book to bring to all appointments. Bring your meter to all appointments as well. Glucose targets as: Fasting 90-130, before meals 100-130, and bedtime under 150 mg/dL. Notify office for consistently elevated or any low blood sugars <70 Follow up with me in 3 months The patient was reminded to check their blood glucose as directed and to record the data in a logbook. This patient was advised to bring their logbook to each office visit. I recommended at least 150 minutes per week of moderate physical activity, such as walking and to reduce carbohydrates and overall caloric intake. 2. Hypertension/BP control: BP goal for patients with diabetes is 130/80. -- This patient is at target on their current regimen. 3. Lipids: Target LDL cholesterol in patients with diabetes is less than 100, less than 70 if patient has overt CVD. Several studies have shown cardiovascular benefits of statin therapy in all patients with diabetes over age 40 with at least 1 CVD risk factor. Cholesterol, Total Date Value Ref Range Status 01/02/2023 224 (H) <200 mg/dL Final Comment: <200 mg/dL, Desirable 200-239 mg/dL, Borderline high >239 mg/dL, High HDL Cholesterol Date Value Ref Range Status 01/02/2023 49 >39 mg/dL Final Comment: 40-59 mg/dL, Acceptable >59 mg/dL, High: Negative risk factor for coronary heart disease <40 mg/dL, Low: Positive risk factor for coronary heart disease LDL Cholesterol Date Value Ref Range Status 01/02/2023 138 (H) <100 mg/dL Final Comment: <100 mg/dL, Optimal 100-129 mg/dL, Near optimal/above optimal 130-159 mg/dL, Borderline high 160-189 mg/dL, High >189 mg/dL, Very high Secondary prevention optimal LDL Cholesterol levels are recommended to be < 70 mg/dL Triglyceride Date Value Ref Range Status 01/02/2023 187 (H) <150 mg/dL Final Comment: <150 mg/dL, Normal 150-199 mg/dL, Borderline high 200-499 mg/dL, High >499 mg/dL, Very high -- This patient is not at target on statin. -- Managed by cardiology. 4. Nephropathy screening: Annual measurement of urine albumin excretion is recommended in patients with diabetes. Albumin/Creat Ratio (mg/g) Date Value 06/27/2022 <15 06/01/2021 Not calculated Protein, Urine (mg/dL) Date Value 12/16/2014 neg Creatinine, Ur Random (UCRR) (mg/dL) Date Value 06/27/2022 78.4 06/01/2021 175.5 -- This patient does not have microalbuminuria and is not on TERRI-I or ARB therapy. 5. Ophthalmology: Annual dilated eye exams are recommended for patients with type 1 and type 2 diabetes. -- This patient is up to date with their annual eye exam and has no history of retinopathy. -- Last seen 11/2022 6. Obesity Class III: -- Increase Mounjaro to 10 mg weekly. Patient to continue to follow up with her PCP and with other consultants regarding her other medical problems. Any part of this document that has been added/copied & pasted from other documents has been reviewed for accuracy and updated as appropriate at the time of the patient encounter Esme Callejas APRN.CNP (Signed electronically to expedite mailing) documented in this encounter [facility] 01-09-2023 Miscellaneous Notes -Increase the dose of atorvastatin to 20 mg daily and the magnesium to 400 mg twice daily. The following approved medication requests have been transmitted electronically. Requested Prescriptions Signed Prescriptions Disp Refills atorvastatin (LIPITOR) 20 mg tablet 90 tablet 1 Sig: Take 1 tablet by mouth once daily. Authorizing Provider: SABINE TILLMAN magnesium oxide (MAG-OX) 400 mg (241.3 mg magnesium) tablet 60 tablet 4 Sig: Take 1 tablet by mouth twice daily. Authorizing Provider: SABINE TILLMAN APRN.CNP Kardiumt message sent to patient. Lab results WNL or is in an acceptable reference range except cholesterol panel remains abnormal, however, has improved slightly from the prior labs. Please verify with patient she is taking atorvastatin 10 mg daily and if so the recommendation would be to have the dose increased if she is willing. Per the MAR atorvastatin has not been refilled since 2020. Also magnesium level is borderline low verify she is taking the magnesium daily in the home and has not missed any doses. Continue same cardiac medications as prescribed and keep F/U appt. documented in this encounter [facility] 01-02-2023 Note HNO ID: [id number] Author: Sabine Tillman APRN.SIRISHA Service: ? Author Type: Nurse Practitioner Type: Progress Notes Filed: 01/02/2023 8:35 AM Note Text: [facility] [place] [facility] Department of Cardiovascular Medicine SECTION OF REGIONAL CARDIOLOGY January 02, 2023 OUTPATIENT VISIT TYPE ESTABLISHED PRIMARY CARE PHYSICIAN: Opla Malloy DO SUBJECTIVE: CHIEF COMPLAINT: Patient presents with: Cardiology Follow Up HISTORY OF PRESENT ILLNESS: Juliette Marrufo is a 32 year old female who presents for CVM follow up. She has a history of Hyperlipidemia and dizziness (2020), Diabetes. Obstructive sleep apnea. Asthma. Morbid obesity. PCOS. No family history of premature coronary artery disease or sudden cardiac . Last seen in department of cardiology 06/27/2022 with me. At that time she reported some episodes of dizziness couple times a month. She reported rare palpitations. Blood pressure was elevated at that time. She had stopped taking all her medications due to lack of insurance. She was advised to resume metoprolol succinate. Today, patient continues to report some dizziness couple times a month and noted when she is on her feet for prolonged periods or during menstrual cycle. Very rare palpitations. She denies chest pain, shortness of breath, orthopnea, cough, significant edema/weight gain, palpitations, PND, lightheadedness, syncope or other significant cardiac symptoms. Cardiac work-up includes: An echocardiogram done in 2016 which showed normal LV function ejection fraction 62%. No valvular heart disease of any significance. Tilt table testing done on 10/19/2021 showed accentuated postural tachycardia with early rise in heart rate however there was a hypertensive response to tilt as well as in the increase of the heart rate. REVIEW OF SYSTEMS: Detailed 14 systems reviewed. Pertinent information, positive and/or negative or non-contributory with the exception of pertinent positives described in HPI. Past Medical, Family and Social history reviewed; unchanged from prior. ASSESSMENT/PLAN: Juliette Marrufo was seen today for EVM follow-up visit. Diagnoses and all orders for this visit: Encounter Diagnosis ICD-10-CM 1. Inappropriate sinus tachycardia R00.0 ECG COMPLETE CBC COMP METABOLIC PANEL MAGNESIUM BLD 2. Palpitations R00.2 ECG COMPLETE 3. KAISER (obstructive sleep apnea) G47.33 4. Type 2 diabetes mellitus without retinopathy (HCC) E11.9 CBC COMP METABOLIC PANEL LIPID PANEL BASIC 5. Hypomagnesemia E83.42 6. Dizziness R42 7. Hyperlipidemia LDL goal <70 E78.5 -Inappropriate sinus tachycardia. Rare palpitations. Monitor ECG completed in office today shows normal sinus rhythm with sinus arrhythmia. Ventricular rate 75 bpm. Continue metoprolol succinate 37.5 mg once daily. -LDL goal less than 70 mg/dL. -Denies dizziness at present. Monitor. -Continue lifestyle modifications: Reduce sodium intake, regular aerobic exercise, eating heart healthy/Plant-based/whole foods diet and maintaining ideal body weight with BMI < 25 -A1c goal less than 7.0%. Current A1c 12.5%. -She should complete updated labs prior to next follow-up visit. Follow up: -Patient will follow-up in 6 months with communication in between if symptoms or changes occur. -Patient should continue to follow with their primary physician for routine health care maintenance and age appropriate risk factor assessment, modification and screenings. PHYSICAL EXAMINATION: BP 118/74 (BP Site: Right Arm, BP Position: Sitting, BP Cuff Size: Large Adult) Pulse 89 Wt 128.8 kg (284 lb) LMP 10/26/2022 (Approximate) SpO2 98% BMI 40.75 kg/m? General appearance: in no acute distress, alert. Eyes: Anicteric sclera. EOMI Neck: No carotid bruits. No JVD Lungs: Normal respiratory effort. No wheezing, crackles, or rhonchi. Heart: Regular rhythm. Regular rate. No murmur. No peripheral edema Abdomen: Abdomen soft, non-tender. No hepatomegaly or bruits. Vascular: Brachial, DP, and PT pulses +2. Skin: Tattoo to lower left leg Neuro: No gross focal deficits Psych: mood appropriate Last 4 Encounter Wt Readings: Date: Wt: 01/02/2023 128.8 kg (284 lb) 11/29/2022 128.2 kg (282 lb 9.6 oz) 11/01/2022 131.5 kg (290 lb) 08/31/2022 128.9 kg (284 lb 1.6 oz) Last 4 Encounter BP Readings: Date: BP: 01/02/2023 118/74 11/29/2022 110/73 11/01/2022 118/70 08/31/2022 122/87[right arm[ Last 4 Encounter Pulse Readings: Date: Pulse: 01/02/2023 89 11/29/2022 78 11/01/2022 81 08/31/2022 89 CARDIOVASCULAR MEDICINE TESTING: I have personally reviewed ECG and laboratory results PERTINENT LABORATORY STUDIES Potassium (mmol/L) Date Value 06/27/2022 4.5 07/09/2021 4.1 Sodium (mmol/L) Date Value 06/27/2022 133 07/09/2021 140 Magnesium (mg/dL) Date Value 07/05/2022 2.0 07/09/2021 2.0 Creatinine (mg/dL) Date Value 06/27/2022 0.54 (more content not included)... [facility] 01-02-2023 History of Present illness Narrative Images from the original note were not included. Heart and Vascular [place] [facility]asc[facility] Department of Cardiovascular Medicine SECTION OF REGIONAL CARDIOLOGY January 02, 2023 OUTPATIENT VISIT TYPE ESTABLISHED PRIMARY CARE PHYSICIAN: Opal Malloy DO SUBJECTIVE: CHIEF COMPLAINT: Patient presents with: Cardiology Follow Up HISTORY OF PRESENT ILLNESS: Juliette Marrufo is a 32 year old female who presents for CVM follow up. She has a history of Hyperlipidemia and dizziness (2020), Diabetes. Obstructive sleep apnea. Asthma. Morbid obesity. PCOS. No family history of premature coronary artery disease or sudden cardiac . Last seen in department of cardiology 06/27/2022 with me. At that time she reported some episodes of dizziness couple times a month. She reported rare palpitations. Blood pressure was elevated at that time. She had stopped taking all her medications due to lack of insurance. She was advised to resume metoprolol succinate. Today, patient continues to report some dizziness couple times a month and noted when she is on her feet for prolonged periods or during menstrual cycle. Very rare palpitations. She denies chest pain, shortness of breath, orthopnea, cough, significant edema/weight gain, palpitations, PND, lightheadedness, syncope or other significant cardiac symptoms. Cardiac work-up includes: An echocardiogram done in 2015 which showed normal LV function ejection fraction 62%. No valvular heart disease of any significance. Tilt table testing done on 10/19/2021 showed accentuated postural tachycardia with early rise in heart rate however there was a hypertensive response to tilt as well as in the increase of the heart rate. REVIEW OF SYSTEMS: Detailed 14 systems reviewed. Pertinent information, positive and/or negative or non-contributory with the exception of pertinent positives described in HPI. Past Medical, Family and Social history reviewed; unchanged from prior. ASSESSMENT/PLAN: Juliette Marrufo was seen today for EVM follow-up visit. Diagnoses and all orders for this visit: Encounter Diagnosis ICD-10-CM 1. Inappropriate sinus tachycardia R00.0 ECG COMPLETE CBC COMP METABOLIC PANEL MAGNESIUM BLD 2. Palpitations R00.2 ECG COMPLETE 3. KAISER (obstructive sleep apnea) G47.33 4. Type 2 diabetes mellitus without retinopathy (HCC) E11.9 CBC COMP METABOLIC PANEL LIPID PANEL BASIC 5. Hypomagnesemia E83.42 6. Dizziness R42 7. Hyperlipidemia LDL goal <70 E78.5 -Inappropriate sinus tachycardia. Rare palpitations. Monitor ECG completed in office today shows normal sinus rhythm with sinus arrhythmia. Ventricular rate 75 bpm. Continue metoprolol succinate 37.5 mg once daily. -LDL goal less than 70 mg/dL. -Denies dizziness at present. Monitor. -Continue lifestyle modifications: Reduce sodium intake, regular aerobic exercise, eating heart healthy/Plant-based/whole foods diet and maintaining ideal body weight with BMI < 25 -A1c goal less than 7.0%. Current A1c 12.5%. -She should complete updated labs prior to next follow-up visit. Follow up: -Patient will follow-up in 6 months with communication in between if symptoms or changes occur. -Patient should continue to follow with their primary physician for routine health care maintenance and age appropriate risk factor assessment, modification and screenings. PHYSICAL EXAMINATION: BP 118/74 (BP Site: Right Arm, BP Position: Sitting, BP Cuff Size: Large Adult) Pulse 89 Wt 128.8 kg (284 lb) LMP 10/26/2022 (Approximate) SpO2 98% BMI 40.75 kg/m General appearance: in no acute distress, alert. Eyes: Anicteric sclera. EOMI Neck: No carotid bruits. No JVD Lungs: Normal respiratory effort. No wheezing, crackles, or rhonchi. Heart: Regular rhythm. Regular rate. No murmur. No peripheral edema Abdomen: Abdomen soft, non-tender. No hepatomegaly or bruits. Vascular: Brachial, DP, and PT pulses +2. Skin: Tattoo to lower left leg Neuro: No gross focal deficits Psych: mood appropriate Last 4 Encounter Wt Readings: Date: Wt: 01/02/2023 128.8 kg (284 lb) 11/29/2022 128.2 kg (282 lb 9.6 oz) 11/01/2022 131.5 kg (290 lb) 08/31/2022 128.9 kg (284 lb 1.6 oz) Last 4 Encounter BP Readings: Date: BP: 01/02/2023 118/74 11/29/2022 110/73 11/01/2022 118/70 08/31/2022 122/87[right arm[ Last 4 Encounter Pulse Readings: Date: Pulse: 01/02/2023 89 11/29/2022 78 11/01/2022 81 08/31/2022 89 CARDIOVASCULAR MEDICINE TESTING: I have personally reviewed ECG and laboratory results PERTINENT LABORATORY STUDIES Potassium (mmol/L) Date Value 06/27/2022 4.5 07/09/2021 4.1 Sodium (mmol/L) Date Value 06/27/2022 133 07/09/2021 140 Magnesium (mg/dL) Date Value 07/05/2022 2.0 07/09/2021 2.0 Creatinine (mg/dL) Date Value 06/27/2022 0.54 07/09/2021 0.81 BUN (mg/dL) Date Value 06/27/2022 9 07/09/2021 8 Glucose (mg/dL) Date Value 06/27/2022 354 07/09/2021 128 PT INR (no units) Date Value 09/05/2017 1.0 TSH Date Value 05/20/2022 1.040 mIU/L 07/09/2021 0.699 uU/mL Cholesterol, Total Date Value Ref Range Status 06/27/2022 264 (H) <200 mg/dL Final Comment: <200 mg/dL, Desirable 200-239 mg/dL, Borderline high >239 mg/dL, High HDL Cholesterol Date Value Ref Range Status 06/27/2022 50 >39 mg/dL Final Comment: 40-59 mg/dL, Acceptable >59 mg/dL, High: Negative risk factor for coronary heart disease <40 mg/dL, Low: Positive risk factor for coronary heart disease LDL Cholesterol Date Value Ref Range Status 06/27/2022 164 (H) <100 mg/dL Final Comment: <100 mg/dL, Optimal 100-129 mg/dL, Near optimal/above optimal 130-159 mg/dL, Borderline high 160-189 mg/dL, High >189 mg/dL, Very high Secondary prevention optimal LDL Cholesterol levels are recommended to be < 70 mg/dL Triglyceride Date Value Ref Range Status 06/27/2022 251 (H) <150 mg/dL Final Comment: <150 mg/dL, Normal 150-199 mg/dL, Borderline high 200-499 mg/dL, High >499 mg/dL, Very high MEDICATIONS Current Outpatient Medications on File Prior to Visit Medication Sig amphetamine-dextroamphetamine XR (ADDERALL XR) 15 mg 24 hr capsule Take 1 capsule by mouth once daily for 30 days. ALPRAZolam (XANAX) 0.5 mg tablet Take 1 tablet by mouth once daily as needed for up to 90 days. tirzepatide (MOUNJARO) 7.5 mg/0.5 mL pen injector Inject 7.5 mg subcutaneously one time a week. insulin degludec (TRESIBA FLEXTOUCH U-100) 100 unit/mL (3 mL) injection pen Inject 70 Units subcutaneously once daily. insulin lispro (HUMALOG KWIKPEN) 100 unit/mL Inject up to 20 units three times daily with meals Blood-Glucose Sensor (Zoobean G7 SENSOR) nicky Check glucose 4 times daily albuterol HFA (PROAIR HFA) 90 mcg/actuation inhaler Inhale 2 Puffs as instructed every 4 hours as needed. buPROPion XL (WELLBUTRIN XL) 300 mg 24 hr tablet Take 1 tablet by mouth once daily. Blood-Glucose Transmitter (PicturkCOM G6 TRANSMITTER) nicky Check glucose 4 times daily. magnesium oxide (MAG-OX) 400 mg (241.3 mg magnesium) tablet Take 1 tablet by mouth once daily. tranexamic acid (LYSTEDA) 650 mg tablet Take 2 tablets by mouth every 8 hours. during menses for heavy menstrual bleeding. Maximum of 5 days. metoprolol succinate ER (TOPROL XL) 25 mg 24 hr tablet Take 1.5 tablets by mouth once daily. JARDIANCE 10 mg tablet Take 1 tablet by mouth once daily with breakfast topiramate (TOPAMAX) 25 mg tablet take 1/2 tablet for 2 weeks then increase to a full tablet loratadine (CLARITIN) 10 mg tablet Take 1 tablet by mouth once daily. ondansetron (ZOFRAN) 4 mg tablet Take 1 tablet by mouth every 8 hours as needed for nausea/vomiting. spironolactone (ALDACTONE) 100 mg tablet Take 1 tablet by mouth once daily. atorvastatin (LIPITOR) 10 mg tablet Take 1 tablet by mouth once daily blood sugar diagnostic (DekkoUCH VERIO TEST STRIPS) test strip Use as instructed to test blood sugar twice daily (on insulin) Lancets lancets Use as instructed to test blood sugar twice daily (on insulin) fluconazole (DIFLUCAN) 150 mg tablet Take 1 tablet PO q week x 6 months Multivitamin capsule Take 1 capsule by mouth once daily. flash glucose scanning reader (EatSTYLE SOPHIE 2 READER) Use as directed to check blood sugar 4 times per day and as needed for symptoms of low sugar (Patient not taking: No sig reported) flash glucose sensor (FREESTYLE SOPHIE 2 SENSOR) kit Apply 1 sensor to the back of the arm every 14 days to monitor blood sugar 4x/day and as needed for symptoms of low sugar. Rotate site (Patient not taking: No sig reported) No current facility-administered medications on file prior to visit. ALLERGIES No Known Allergies ACTIVE PROBLEM LIST Attention Deficit Disorder (Add) Without Hyperactivity - 08/31/2022 Current Moderate Episode of Major Depressive Disorder (Hcc) - 08/31/2022 Jonathan (Generalized Anxiety Disorder) - 08/31/2022 Complex Cyst of Left Ovary - 08/10/2022 Dizziness - 11/01/2021 Spasm of Muscle - 02/01/2021 [employer] Shift Current Use of Insulin ([facility]) - 12/22/2020 Family History of Colonic Polyps - 05/11/2020 Myopia of Both Eyes With Astigmatism - 12/13/2018 Vitamin D Deficiency - 11/27/2017 Severe Obesity (Bmi >= 40) ([facility]) - 05/04/2017 Tinajero (Nonalcoholic Steatohepatitis) [facility] (Obstructive Sleep Apnea) - 11/09/2015 Type 2 Diabetes Mellitus Without Retinopathy ([facility]) - 12/18/2013 Asthma - 08/06/2013 Pcos (Polycystic Ovarian Syndrome) - 08/06/2013 Microcytosis - 08/15/2011 PAST MEDICAL HISTORY Diagnosis Date Anxiety and depression Asthma Complex cyst of left ovary 08/10/2022 Diabetes mellitus (HCC) H/O cold sores TINAJERO (nonalcoholic steatohepatitis) KAISER (obstructive sleep apnea) PCOS (polycystic ovarian syndrome) PAST SURGICAL HISTORY Procedure Laterality Date REMOVAL GALLBLADDER 09/01/2011 FAMILY HISTORY Problem Relation Age of Onset No Ocular Disease Maternal Grandfather other (lung cancer) Maternal Grandfather Cervical Cancer Mother No Ocular Disease Mother Psoriasis Mother No Ocular Disease Father other (Lung problem) Father No Ocular Disease Maternal Grandmother No Ocular Disease Paternal Grandmother No Ocular Disease Paternal Grandfather other (Colon polyps) Paternal Uncle Social History Tobacco Use Smoking status: Never Smokeless tobacco: Never Vaping Use Vaping Use: Never used Substance Use Topics Alcohol use: Yes Comment: rare. about 5x per year Drug use: No Elements of this note, including HPI, ROS, Physical Exam, Assessment and Plan were copied and pasted from previous office visit notes completed within our department. Updates have been made where appropriate/noted and reflect current exam and medical decision making from date of this visit. This note was partially generated with [employer] voice recognition software and may contain errors, including spelling, grammar, syntax and misrecognition of what was dictated, that may not be fully corrected. I appreciate the opportunity to participate in this patient's care. Please do not hesitate to call my office if you have any questions. CONTACT INFORMATION: Sabine Tillman APRN.CNP Adult Nurse Practitioner [facility] Department of Cardiovascular Medicine [facility] Heart, Vascular, Thoracic [place] [facility] Surgery [facility] Cardiology Consult Team documented in this encounter [facility] 12-02-2022 Note HNO ID: [id number] Author: Ainsley Rojo OD Service: ? Author Type: WHEAT INSPECTOR Type: Progress Notes Filed: 12/02/2022 12:12 PM Note Text: ASSESSMENT/PLAN: 1. Type 2 diabetes mellitus without retinopathy (HCC) - ICD9: 250.00, ICD10: E11.9 (primary diagnosis) 2. roasterman current use of insulin (HCC) - ICD9: V58.67, ICD10: Z79.4 Risk of diabetic changes and vision loss can be minimized by tight control of blood sugar, blood pressure, and cholesterol levels. Continue care with primary care doctor and/or internal revenue agent to maintain optimum levels. Yearly dilated eye exams are recommended to monitor for any changes. If you have vision changes, call the office to be seen sooner. Letter sent to primary care provider/endocrinology. 3. Myopia of both eyes with astigmatism and presbyopia - ICD9: 367.1, 367.20, 367.4, ICD10: H52.13, H52.203, H52.4 Hold on glasses Patient just resumed diabetes mellitus meds in Oct and her blood sugar is in the high 200s. She will be reassessed by endo next month. Patient educated if her treatment changes it may shift her glasses prescription again Right now her distance vision is stable but she is measuring for a bifocal which could change after meds are changed for her ADD Recommend hold on new glasses until blood sugar and ADD meds are stable for 6 weeks Return to clinic: manifest refraction only, Dr. Rojo diabetes mellitus one year Ainsley Rojo, OD I have confirmed and edited as necessary the relevant HPI, ophthalmic history, ROS, and the neuro exam findings as obtained by others. I have seen and examined this patient. I have discussed the case and the management of this patient's care with the Resident/Fellow, if applicable. I also have reviewed and agree with the assessment and plan as stated above and agree with all of its relevant components. Ainsley Rojo, OD December 02, 2022 12:02 PM [facility] 12-02-2022 History of Present illness Narrative ASSESSMENT/PLAN: 1. Type 2 diabetes mellitus without retinopathy (HCC) - ICD9: 250.00, ICD10: E11.9 (primary diagnosis) 2. [facility] current use of insulin (HCC) - ICD9: V58.67, ICD10: Z79.4 Risk of diabetic changes and vision loss can be minimized by tight control of blood sugar, blood pressure, and cholesterol levels. Continue care with primary care doctor and/or internal revenue agent to maintain optimum levels. Yearly dilated eye exams are recommended to monitor for any changes. If you have vision changes, call the office to be seen sooner. Letter sent to primary care provider/endocrinology. 3. Myopia of both eyes with astigmatism and presbyopia - ICD9: 367.1, 367.20, 367.4, ICD10: H52.13, H52.203, H52.4 Hold on glasses Patient just resumed diabetes mellitus meds in Oct and her blood sugar is in the high 200s. She will be reassessed by gerber next month. Patient educated if her treatment changes it may shift her glasses prescription again Right now her distance vision is stable but she is measuring for a bifocal which could change after meds are changed for her ADD Recommend hold on new glasses until blood sugar and ADD meds are stable for 6 weeks Return to clinic: manifest refraction only, Dr. Rojo diabetes mellitus one year Ainsley Rojo, OD I have confirmed and edited as necessary the relevant HPI, ophthalmic history, ROS, and the neuro exam findings as obtained by others. I have seen and examined this patient. I have discussed the case and the management of this patient's care with the Resident/Fellow, if applicable. I also have reviewed and agree with the assessment and plan as stated above and agree with all of its relevant components. Ainsley Rojo, MELISSA December 02, 2022 12:02 PM documented in this encounter [facility] 11-29-2022 Note HNO ID: [id number] Author: Opal Malloy, DO Service: ? Author Type: Physician Type: Progress Notes Filed: 11/29/2022 10:24 AM Note Text: CC: Follow up HPI: 32 year old female presents for follow up Pt last seen on 11/01 by gerber regarding diabetes She is on mounjaro now (has been on for a month now) Has some burping a couple days after injection but otherwise tolerating Also on insulin HgA1C was 12.5 in October Decreased pop intake to 2-3 per week Had been drinking 2-3 pops per day Decreased fast food intake I last saw patient in August Increased bupropion at that time Also started on concerta for ADD Feels concerta doesn't help as much adderall did She completes tasks but jumping around a lot Would like to try adderall again Has been taking xanax about once a week Needs refill HAs resolved Pt feels headaches were stress resolved Stress at work has improved She has been at current job for a year but she has applied for a new job PDMP report reviewed Last 5 Encounter BP Readings: Date: BP: 11/29/2022 110/73 11/01/2022 118/70 08/31/2022 122/87[right arm[ 07/18/2022 127/87 07/12/2022 110/80 Last 2 Encounter Wt Readings: Date: Wt: 11/29/2022 128.2 kg (282 lb 9.6 oz) 11/01/2022 131.5 kg (290 lb) Objective: BP 110/73 Pulse 78 Resp 16 Wt 128.2 kg (282 lb 9.6 oz) LMP 10/26/2022 (Approximate) BMI 40.55 kg/m? General appearance:Obese, well appearing, alert, in no acute distress, and well-hydrated, well nourished Heart: regular rate and rhythm, without murmur Lungs: clear to auscultation, without rales or wheeze, good air exchange Ext: no edema in LE bilaterally Psych: Posture and motor behavior: normal posture and motor behavior Dress, grooming, personal hygiene: normal dress and grooming Facial expression: smiling and good eye contact Speech: normal speech Mood: cheerful Coherency and relevance of thought: normal thought processes Memory: normal memory ASSESSMENT/PLAN: 1. JONATHAN (generalized anxiety disorder) - ICD9: 300.02, ICD10: F41.1 (primary diagnosis) - improving. Continue meds - ALPRAZOLAM 0.5 MG TABLET 2. Attention deficit disorder (ADD) without hyperactivity - ICD9: 314.00, ICD10: F98.8 - will stop concerta and try adderall as she did better on it previously - DEXTROAMPHETAMINE-AMPHETAMINE ER 15 MG 24HR CAPSULE,EXTEND RELEASE 3. Moderate episode of recurrent major depressive disorder (HCC) - ICD9: 296.32, ICD10: F33.1 - improved with higher dose of bupropion 4. Type 2 diabetes mellitus without retinopathy (HCC) - ICD9: 250.00, ICD10: E11.9 - Uncontrolled - Follows with endo 5. Severe obesity (BMI >= 40) (HCC) - ICD9: 278.01, ICD10: E66.01 Weight decreasing - Behavioral and pharmacological intervention Follow up in 3 months but she will let me know if tolerates adderall and how she does on it Opal Malloy, [facility] 11-29-2022 History of Present illness Narrative CC: Follow up HPI: 32 year old female presents for follow up Pt last seen on 11/01 by gerber regarding diabetes She is on mounjaro now (has been on for a month now) Has some burping a couple days after injection but otherwise tolerating Also on insulin HgA1C was 12.5 in October Decreased pop intake to 2-3 per week Had been drinking 2-3 pops per day Decreased fast food intake I last saw patient in August Increased bupropion at that time Also started on concerta for ADD Feels concerta doesn't help as much adderall did She completes tasks but jumping around a lot Would like to try adderall again Has been taking xanax about once a week Needs refill HAs resolved Pt feels headaches were stress resolved Stress at work has improved She has been at current job for a year but she has applied for a new job PDMP report reviewed Last 5 Encounter BP Readings: Date: BP: 11/29/2022 110/73 11/01/2022 118/70 08/31/2022 122/87[right arm[ 07/18/2022 127/87 07/12/2022 110/80 Last 2 Encounter Wt Readings: Date: Wt: 11/29/2022 128.2 kg (282 lb 9.6 oz) 11/01/2022 131.5 kg (290 lb) Objective: BP 110/73 Pulse 78 Resp 16 Wt 128.2 kg (282 lb 9.6 oz) LMP 10/26/2022 (Approximate) BMI 40.55 kg/m General appearance:Obese, well appearing, alert, in no acute distress, and well-hydrated, well nourished Heart: regular rate and rhythm, without murmur Lungs: clear to auscultation, without rales or wheeze, good air exchange Ext: no edema in LE bilaterally Psych: Posture and motor behavior: normal posture and motor behavior Dress, grooming, personal hygiene: normal dress and grooming Facial expression: smiling and good eye contact Speech: normal speech Mood: cheerful Coherency and relevance of thought: normal thought processes Memory: normal memory ASSESSMENT/PLAN: 1. JONATHAN (generalized anxiety disorder) - ICD9: 300.02, ICD10: F41.1 (primary diagnosis) - improving. Continue meds - ALPRAZOLAM 0.5 MG TABLET 2. Attention deficit disorder (ADD) without hyperactivity - ICD9: 314.00, ICD10: F98.8 - will stop concerta and try adderall as she did better on it previously - DEXTROAMPHETAMINE-AMPHETAMINE ER 15 MG 24HR CAPSULE,EXTEND RELEASE 3. Moderate episode of recurrent major depressive disorder (HCC) - ICD9: 296.32, ICD10: F33.1 - improved with higher dose of bupropion 4. Type 2 diabetes mellitus without retinopathy (HCC) - ICD9: 250.00, ICD10: E11.9 - Uncontrolled - Follows with endo 5. Severe obesity (BMI >= 40) (HCC) - ICD9: 278.01, ICD10: E66.01 Weight decreasing - Behavioral and pharmacological intervention Follow up in 3 months but she will let me know if tolerates adderall and how she does on it Opal Malloy DO documented in this encounter [facility] 11-03-2022 Miscellaneous Notes Patient's request for medication is as follows: Requested Prescriptions Signed Prescriptions Disp Refills methylphenidate ER 27 mg tablet 30 tablet 0 Sig: Take 1 tablet by mouth every morning for 30 days. Authorizing Provider: GISSELLE SPRAGUE Prescription(s) as above. Please process accordingly. Gisselle Sprague PA-C Patient takes once daily. It is not causing dizziness. It is working well, no side effects. Patient last seen 08/31/2022 Last filled 08/31/2022 PDMP website checked and validated. All prescriptions have been APPROPRIATELY filled. No suspicious activity was identified. 11/03/2022 by Gisselle Sprague PA-C Please contact patient and see how she's doing on the methylphenidate? Per Dr. Malloy last note: Has history of ADHD Was on adderall xr in past but stopped as it was making dizziness from POTS worse Can we see how often she's taking it? Is it causing dizziness? Please then route back to Dr. Malloy. Patient requesting refills as follows: Requested Prescriptions Pending Prescriptions Disp Refills methylphenidate ER 27 mg tablet 30 tablet 0 Sig: Take 1 tablet by mouth every morning for 30 days. Last visit 08/31/2022 Next scheduled 11/29/2022 Please review and advise. Dulce Alford MA documented in this encounter [facility] 11-03-2022 Miscellaneous Notes Pharmacy called to say that the following items are not covered under the patients insurance. A prior auth is required. Blood-Glucose Sensor (DEXCOM G6 SENSOR) nicky Blood-Glucose Transmitter (DEXCOM G6 TRANSMITTER) nicky Please advise. documented in this encounter [facility] 11-01-2022 Note HNO ID: [id number] Author: Christiana Bland MD Service: ? Author Type: Physician Type: Progress Notes Filed: 11/01/2022 10:25 AM Note Text: Transvaginal ultrasound performed. See imaging tab for details. Christiana Bland MD [facility] 11-01-2022 History of Present illness Narrative Transvaginal ultrasound performed. See imaging tab for details. Christiana Bland MD documented in this encounter [facility] 11-01-2022 Note HNO ID: [id number] Author: Esme Callejas APRN.FACILITIES ADMINISTRATOR Service: ? Author Type: Nurse Practitioner Type: Progress Notes Filed: 11/01/2022 8:06 AM Note Text: Endocrinology Follow-up History of Present Illness Juliette Marrufo is a 32 year old female presents today for follow up of DM Type 2. Today's HbA1c is 12.5%. Reports being off of Trulicity for 2 months due to the backorder and insurance change. She is not currently taking her Jardiance. Is taking Tresiba only 2-3 times per week. Taking Humalog 30 units TID with meals but not everyday. She is interested in starting Mounjaro. She plans to restart Jardiance once sugars are better to prevent getting a yeast infection. Historically when stressed she has stopped her medications/insulin. Glucose is well controlled when taking regimen consistently. She has a good support system- sees a counselor and has her boyfriend. She also has a few friends who text her daily to check if she has taken her medication. Boyfriend is on Ozempic- she plans to take injections on same day as him for compliance. She is not currently following with weight management as she had to miss work for appointments and this was added stress. She prefers in person appointments for accountability. Date of Diagnosis: 2012, preceded by PCOS for years Last HbA1c: Hemoglobin A1C (%) Date Value 06/27/2022 12.6 01/11/2021 10.9 06/25/2019 7.6 11/03/2018 7.7 07/23/2018 11.0 01/30/2018 9.4 Hemoglobin A1C (POCT) (%) Date Value 11/01/2022 12.5 09/02/2021 7.0 05/27/2021 9.2 10/04/2019 7.9 04/03/2019 8.5 Complications Microvascular: none Macrovascular: none Associated diagnoses/complications are: PCOS with clinical and biochemical hyperandrogenism/ irregular periods/ fertility issues, periods regular in the last couple years, on BCPs, sees Dr Bland. TINAJERO (liver biopsy showed stage 2 fibrosis), seen by Hepatology Dr Mireles. HPL managed by PCP, on statin. Depression, followed by PCP. Asthma, sleep apnea s/p cholecx 2011 Diabetic Foot and Retinal Eye Exam not Overdue Physical Activity: Sedentary Diet: CHO Controlled Diet SMBG Frequency of Monitoring: Four times a Day using Dexcom Summary of Personal CGM Findings: Dates worn: 10/19/2022-11/01/2022 CGM Type: Dexcom 1- CGM recording is adequate for interpretation. Worn 79% of time. 2- Average glucose is 353 mg/dl. 3. <1% time in range 70-180mg/dL 4. Coefficient of variation: 16.8% 5. Total frequency of hypoglycemia: 0% with BG<70 * Hypoglycemia patterns: none *Nocturnal hypoglycemia none noted 6- Hyperglycemic episodes 99% with BG>180 * Hyperglycemia Patterns: globally Previous DM meds: Jardiance- caused yeast infections in the past, but no issues so far since restarting Metformin- GI SE Current DM Related Medications: Current Medications 11/01/2022 DIABETES THERAPIES Medication Dosage Pharm Subclass dulaglutide (TRULICITY) 3 mg/0.5 mL pen injector Inject 3 mg subcutaneously one time a week. Antihyperglycemic - Glucagon-Like Peptide-1 (GLP-1) Receptor Agonists insulin degludec (TRESIBA FLEXTOUCH U-100) 100 unit/mL (3 mL) injection pen Inject 70 Units subcutaneously once daily. Insulin Analogs - Long Acting insulin lispro (HUMALOG KWIKPEN) 100 unit/mL INJECT 3 TIMES DAILY BEFORE MEALS PER SLIDING SCALE (2 UNITS FOR EACH 50>150) MAX 30 UNITS PER DAY Insulin Analogs - Rapid Acting JARDIANCE 10 mg tablet Take 1 tablet by mouth once daily with breakfast Antihyperglycemic - Sodium Glucose Cotransporter-2 (SGLT2) Inhibitors CARDIOVASCULAR Medication Dosage Pharm Subclass atorvastatin (LIPITOR) 10 mg tablet Take 1 tablet by mouth once daily Antihyperlipidemic - HMG CoA Reductase Inhibitors (statins) metoprolol succinate ER (TOPROL XL) 25 mg 24 hr tablet Take 1.5 tablets by mouth once daily. Beta Blockers Cardiac Selective DIURETICS Medication Dosage Pharm Subclass spironolactone (ALDACTONE) 100 mg tablet Take 1 tablet by mouth once daily. Diuretic - Aldosterone Receptor Antagonist, Non-selective OTHER Medication Dosage Pharm Subclass albuterol HFA (PROAIR HFA) 90 mcg/actuation inhaler Inhale 2 Puffs as instructed every 4 hours as needed. Asthma/COPD Therapy - Beta 2-Adrenergic Agents, Inhaled, Short Acting ALPRAZolam (XANAX) 0.5 mg tablet Take 1 tablet by mouth once daily as needed for up to 90 days. Antianxiety Agent - Benzodiazepines blood sugar diagnostic (ONETOUCH VERIO TEST STRIPS) test strip Use as instructed to test blood sugar twice daily (on insulin) Medical Supplies and DME - Blood Glucose Tests Blood-Glucose Sensor (DEXCOM G6 SENSOR) nicky Check glucose 4 times daily. Change sensor every 10 days. Medical Supplies and DME - Glucose Monitoring Test Supplies Blood-Glucose Transmitter (DEXCOM G6 TRANSMITTER) nicky Check glucose 4 times daily. Medical Supplies and DME - Glucose Monitoring Test Supplies buPROPion XL (WELLBUTRIN XL) 300 m (more content not included)... [facility] 11-01-2022 Instructions Esme Callejas APRN.SIRISHA - 11/01/2022 7:54 AM EST Plan Continue Tresiba 70 units daily Continue Jardiance 10 mg once daily Continue Humalog 30 units TID with meals Stop Trulicity Start Mounjaro 5 mg daily Check your blood sugar 4 times daily and record in log book to bring to all appointments. Bring your meter to all appointments as well. Glucose targets as: Fasting 90-130, before meals 100-130, and bedtime under 150 mg/dL. Notify office for consistently elevated or any low blood sugars <70 Follow up with me in 3 months documented in this encounter [facility] 11-01-2022 History of Present illness Narrative Endocrinology Follow-up History of Present Illness Juliette Marrufo is a 32 year old female presents today for follow up of DM Type 2. Today's HbA1c is 12.5%. Reports being off of Trulicity for 2 months due to the backorder and insurance change. She is not currently taking her Jardiance. Is taking Tresiba only 2-3 times per week. Taking Humalog 30 units TID with meals but not everyday. She is interested in starting Mounjaro. She plans to restart Jardiance once sugars are better to prevent getting a yeast infection. Historically when stressed she has stopped her medications/insulin. Glucose is well controlled when taking regimen consistently. She has a good support system- sees a counselor and has her boyfriend. She also has a few friends who text her daily to check if she has taken her medication. Boyfriend is on Ozempic- she plans to take injections on same day as him for compliance. She is not currently following with weight management as she had to miss work for appointments and this was added stress. She prefers in person appointments for accountability. Date of Diagnosis: 2012, preceded by PCOS for years Last HbA1c: Hemoglobin A1C (%) Date Value 06/27/2022 12.6 01/11/2021 10.9 06/25/2019 7.6 11/03/2018 7.7 07/23/2018 11.0 01/30/2018 9.4 Hemoglobin A1C (POCT) (%) Date Value 11/01/2022 12.5 09/02/2021 7.0 05/27/2021 9.2 10/04/2019 7.9 04/03/2019 8.5 Complications Microvascular: none Macrovascular: none Associated diagnoses/complications are: PCOS with clinical and biochemical hyperandrogenism/ irregular periods/ fertility issues, periods regular in the last couple years, on BCPs, sees Dr Bland. TINAJERO (liver biopsy showed stage 2 fibrosis), seen by Hepatology Dr Mireles. HPL managed by PCP, on statin. Depression, followed by PCP. Asthma, sleep apnea s/p cholecx 2012 Diabetic Foot and Retinal Eye Exam not Overdue Physical Activity: Sedentary Diet: CHO Controlled Diet SMBG Frequency of Monitoring: Four times a Day using Dexcom Summary of Personal CGM Findings: Dates worn: 10/19/2022-11/01/2022 CGM Type: Dexcom 1- CGM recording is adequate for interpretation. Worn 79% of time. 2- Average glucose is 353 mg/dl. 3. <1% time in range 70-180mg/dL 4. Coefficient of variation: 16.8% 5. Total frequency of hypoglycemia: 0% with BG<70 * Hypoglycemia patterns: none *Nocturnal hypoglycemia none noted 6- Hyperglycemic episodes 99% with BG>180 * Hyperglycemia Patterns: globally Previous DM meds: Jardiance- caused yeast infections in the past, but no issues so far since restarting Metformin- GI SE Current DM Related Medications: Current Medications 11/01/2022 DIABETES THERAPIES Medication Dosage Pharm Subclass dulaglutide (TRULICITY) 3 mg/0.5 mL pen injector Inject 3 mg subcutaneously one time a week. Antihyperglycemic - Glucagon-Like Peptide-1 (GLP-1) Receptor Agonists insulin degludec (TRESIBA FLEXTOUCH U-100) 100 unit/mL (3 mL) injection pen Inject 70 Units subcutaneously once daily. Insulin Analogs - Long Acting insulin lispro (HUMALOG KWIKPEN) 100 unit/mL INJECT 3 TIMES DAILY BEFORE MEALS PER SLIDING SCALE (2 UNITS FOR EACH 50>150) MAX 30 UNITS PER DAY Insulin Analogs - Rapid Acting JARDIANCE 10 mg tablet Take 1 tablet by mouth once daily with breakfast Antihyperglycemic - Sodium Glucose Cotransporter-2 (SGLT2) Inhibitors CARDIOVASCULAR Medication Dosage Pharm Subclass atorvastatin (LIPITOR) 10 mg tablet Take 1 tablet by mouth once daily Antihyperlipidemic - HMG CoA Reductase Inhibitors (statins) metoprolol succinate ER (TOPROL XL) 25 mg 24 hr tablet Take 1.5 tablets by mouth once daily. Beta Blockers Cardiac Selective DIURETICS Medication Dosage Pharm Subclass spironolactone (ALDACTONE) 100 mg tablet Take 1 tablet by mouth once daily. Diuretic - Aldosterone Receptor Antagonist, Non-selective OTHER Medication Dosage Pharm Subclass albuterol HFA (PROAIR HFA) 90 mcg/actuation inhaler Inhale 2 Puffs as instructed every 4 hours as needed. Asthma/COPD Therapy - Beta 2-Adrenergic Agents, Inhaled, Short Acting ALPRAZolam (XANAX) 0.5 mg tablet Take 1 tablet by mouth once daily as needed for up to 90 days. Antianxiety Agent - Benzodiazepines blood sugar diagnostic (DekkoUCH VERIO TEST STRIPS) test strip Use as instructed to test blood sugar twice daily (on insulin) Medical Supplies and DME - Blood Glucose Tests Blood-Glucose Sensor (Zoobean G6 SENSOR) nicky Check glucose 4 times daily. Change sensor every 10 days. Medical Supplies and DME - Glucose Monitoring Test Supplies Blood-Glucose Transmitter (PicturkCOM G6 TRANSMITTER) nicky Check glucose 4 times daily. Medical Supplies and DME - Glucose Monitoring Test Supplies buPROPion XL (WELLBUTRIN XL) 300 mg 24 hr tablet Take 1 tablet by mouth once daily. Antidepressant-Norepinephrine and Dopamine Reuptake Inhibitors (NDRIs) flash glucose scanning reader (Germin8 SOPHIE 2 READER) Use as directed to check blood sugar 4 times per day and as needed for symptoms of low sugar Medical Supplies and DME - Glucose Monitoring Test Supplies flash glucose sensor (FREESTYLE SOPHIE 2 SENSOR) kit Apply 1 sensor to the back of the arm every 14 days to monitor blood sugar 4x/day and as needed for symptoms of low sugar. Rotate site Medical Supplies and DME - Glucose Monitoring Test Supplies fluconazole (DIFLUCAN) 150 mg tablet Take 1 tablet PO q week x 6 months Antifungal - Triazoles Lancets lancets Use as instructed to test blood sugar twice daily (on insulin) Medical Supplies and DME - Glucose Monitoring Test Supplies loratadine (CLARITIN) 10 mg tablet Take 1 tablet by mouth once daily. Antihistamines - 2nd Generation magnesium oxide (MAG-OX) 400 mg (241.3 mg magnesium) tablet Take 1 tablet by mouth once daily. Antacid - Magnesium methylphenidate ER 27 mg tablet Take 1 tablet by mouth every morning for 30 days. Attention Deficit-Hyperactivity (ADHD) Therapy, Stimulant-Type Multivitamin capsule Take 1 capsule by mouth once daily. Multivitamins ondansetron (ZOFRAN) 4 mg tablet Take 1 tablet by mouth every 8 hours as needed for nausea/vomiting. Antiemetic - Selective Serotonin 5-HT3 Antagonists topiramate (TOPAMAX) 25 mg tablet take 1/2 tablet for 2 weeks then increase to a full tablet Anticonvulsant - Monosaccharide Derivatives tranexamic acid (LYSTEDA) 650 mg tablet Take 2 tablets by mouth every 8 hours. during menses for heavy menstrual bleeding. Maximum of 5 days. Hemostatic Systemic - Antifibrinolytic Agents Past History, Medications, Allergies PAST MEDICAL HISTORY Diagnosis Date Anxiety and depression Asthma Complex cyst of left ovary 08/10/2022 Diabetes mellitus (HCC) H/O cold sores TINAJERO (nonalcoholic steatohepatitis) KAISER (obstructive sleep apnea) PCOS (polycystic ovarian syndrome) PAST SURGICAL HISTORY Procedure Laterality Date REMOVAL GALLBLADDER 09/01/2011 ALLERGIES No Known Allergies FAMILY HISTORY Problem Relation Age of Onset No Ocular Disease Maternal Grandfather other (lung cancer) Maternal Grandfather Cervical Cancer Mother No Ocular Disease Mother Psoriasis Mother No Ocular Disease Father other (Lung problem) Father No Ocular Disease Maternal Grandmother No Ocular Disease Paternal Grandmother No Ocular Disease Paternal Grandfather other (Colon polyps) Paternal Uncle Social History Tobacco Use Smoking status: Never Smokeless tobacco: Never Vaping Use Vaping Use: Never used Substance Use Topics Alcohol use: Yes Comment: rare. about 5x per year Drug use: No Review of Systems GENERAL: No weight loss, malaise or fevers RESPIRATORY: Negative for cough, hemoptysis, wheezing, COPD, dyspnea or shortness of breath CARDIOVASCULAR: Negative for chest pain, leg swelling, hypertension, CHF or palpitations GI: No nausea, vomiting, or diarrhea ENDOCRINE: Negative for cold or heat intolerance, polyuria, polydipsia and goiter Feet: No problems NEUROLOGIC:Negative for focal numbness or weakness, headaches and dizziness or syncope. Physical examination BP 118/70 Pulse 81 Resp 18 Wt 131.5 kg (290 lb) LMP 10/26/2022 (Approximate) SpO2 97% BMI 41.61 kg/m General appearance: Well appearing, alert, in no acute distress, well-hydrated, well nourished. Skin: Skin color, texture, turgor normal, no suspicious rashes or lesions HEART: normal rate LUNGS: unlabored, normal respiratory rate EXTREMITIES No deformities, No skin discoloration and No edema NEURO: Speech normal, mental status intact, no tremor noted. Feet:Shoes and socks removed, No deformities, ulcers, calluses, normal distal pulses, and sensitive to 10 gm monofilament Previous Laboratory Results LABS Glucose (mg/dL) Date Value 06/27/2022 354 07/09/2021 128 06/01/2021 136 01/11/2021 273 Potassium (mmol/L) Date Value 06/27/2022 4.5 07/09/2021 4.1 Sodium (mmol/L) Date Value 06/27/2022 133 07/09/2021 140 06/01/2021 139 01/11/2021 133 Chloride (mmol/L) Date Value 06/27/2022 97 07/09/2021 105 06/01/2021 104 01/11/2021 102 CO2 (mmol/L) Date Value 06/27/2022 23 07/09/2021 24 06/01/2021 23 01/11/2021 21 Creatinine (mg/dL) Date Value 06/27/2022 0.54 07/09/2021 0.81 06/01/2021 0.65 01/11/2021 0.59 BUN (mg/dL) Date Value 06/27/2022 9 07/09/2021 8 06/01/2021 7 01/11/2021 7 Anion Gap (mmol/L) Date Value 06/27/2022 13 07/09/2021 11 06/01/2021 12 01/11/2021 10 Calcium (mg/dL) Date Value 07/09/2021 9.5 06/01/2021 9.5 01/11/2021 9.1 Calcium, Total (mg/dL) Date Value 06/27/2022 9.4 eGFR- (no units) Date Value 07/09/2021 >60 06/01/2021 >60 01/11/2021 >60 eGFR-All Other Races (.) Date Value 07/09/2021 >60 06/01/2021 >60 01/11/2021 >60 Estimated Glomerular Filtration Rate (mL/min/1.73m ) Date Value 06/27/2022 125 ALT (U/L) Date Value 07/09/2021 18 06/01/2021 27 12/02/2019 45 TSH Date Value Ref Range Status 05/20/2022 1.040 0.270 - 4.200 mIU/L Final Comment: If the patient is , TSH reference range varies by gestational period: First Trimester (weeks 9-12): 0.180-2.990 mIU/L Second Trimester: 0.110-3.980 mIU/L Third Trimester: 0.480-4.710 mIU/L Andrew Erickson et al. A Practical Approach for the Verifications and Determination of Site- and Trimester-Specific Reference Intervals for Thyroid Function tests in . Thyroid, 2019:29:3:412-420. Samuel E, et al. 2017 Guidelines of the [place] Thyroid Association for the Diagnosis and Management of Thyroid Disease during and the . Thyroid, 2017:27:3:315-389. 07/09/2021 0.699 0.270 - 4.200 uU/mL Final Comment: If the patient is , TSH reference range varies by gestational period: First Trimester (weeks 9-12): 0.180-2.990 mcIU/mL Second Trimester: 0.110-3.980 mcIU/mL Third Trimester: 0.480-4.710 mcIU/mL Andrew Erickson et al. A Practical Approach for the Verifications and Determination of Site- and Trimester-Specific Reference Intervals for Thyroid Function tests in . Thyroid, 2019:29:3:412-420. Samuel Ervin et al. 2017 Guidelines of the [place] Thy[employer] Association for the Diagnosis and Management of Thyroid Disease during and the . Thyroid, 2017:27:3:315-389. 12/02/2019 1.350 0.270 - 4.200 uU/mL Final Comment: If the patient is , TSH reference range varies by gestational period: First Trimester (weeks 9-12): 0.180-2.990 mcIU/mL Second Trimester: 0.110-3.980 mcIU/mL Third Trimester: 0.480-4.710 mcIU/mL Andrew Erickson et al. A Practical Approach for the Verifications and Determination of Site- and Trimester-Specific Reference Intervals for Thyroid Function tests in . Thyroid, 2019:29:3:412-420. Samuel Ervin et al. 2017 Guidelines of the [place] Thy[employer] Association for the Diagnosis and Management of Thyroid Disease during and the . Thyroid, 2017:27:3:315-389. Free T4 Date Value Ref Range Status 06/25/2019 1.0 0.9 - 1.7 ng/dL Final 05/31/2017 1.0 0.9 - 1.7 ng/dL Final 06/15/2015 1.1 0.7 - 1.8 ng/dL Final Impression/Recommendations IMPRESSION Juliette Marrufo is a 32 year old here for evaluation of DM Type 2 with no known complications. HbA1c is 12.6%. RECOMMENDATIONS: 1. Glycemic control: Target HbA1C is less than 7.0% per ADA guidelines. Historically glucose is well controlled while taking medications consistently. Several barriers to compliance with regimen which she is actively addressing with the support of her counselor and family/friends. Will start Mounjaro R/B/A discussed (starting at 5 mg dose as she has tolerated high dose GLP-1 agonist before. She is aware not starting at 2.5 mg may cause GI side effects and accepts this risk. Advised to notify me for any issues tolerating). Discussed need to be taking insulin consistently. I have advised as follows: Plan Resume Tresiba 70 units daily Resume Jardiance 10 mg once daily Resume Humalog 30 units TID with meals Stop Trulicity Start Mounjaro 5 mg daily - Message me in 4 weeks with how you are tolerating, will increase at that time if indicated Check your blood sugar 4 times daily and record in log book to bring to all appointments. Bring your meter to all appointments as well. Glucose targets as: Fasting 90-130, before meals 100-130, and bedtime under 150 mg/dL. Notify office for consistently elevated or any low blood sugars <70 Follow up with me in 3 months The patient was reminded to check their blood glucose as directed and to record the data in a logbook. This patient was advised to bring their logbook to each office visit. I recommended at least 150 minutes per week of moderate physical activity, such as walking and to reduce carbohydrates and overall caloric intake. 2. Hypertension/BP control: BP goal for patients with diabetes is 130/80. -- This patient is at target on their current regimen. 3. Lipids: Target LDL cholesterol in patients with diabetes is less than 100, less than 70 if patient has overt CVD. Several studies have shown cardiovascular benefits of statin therapy in all patients with diabetes over age 40 with at least 1 CVD risk factor. Cholesterol, Total Date Value Ref Range Status 06/27/2022 264 (H) <200 mg/dL Final Comment: <200 mg/dL, Desirable 200-239 mg/dL, Borderline high >239 mg/dL, High HDL Cholesterol Date Value Ref Range Status 06/27/2022 50 >39 mg/dL Final Comment: 40-59 mg/dL, Acceptable >59 mg/dL, High: Negative risk factor for coronary heart disease <40 mg/dL, Low: Positive risk factor for coronary heart disease LDL Cholesterol Date Value Ref Range Status 06/27/2022 164 (H) <100 mg/dL Final Comment: <100 mg/dL, Optimal 100-129 mg/dL, Near optimal/above optimal 130-159 mg/dL, Borderline high 160-189 mg/dL, High >189 mg/dL, Very high Secondary prevention optimal LDL Cholesterol levels are recommended to be < 70 mg/dL Triglyceride Date Value Ref Range Status 06/27/2022 251 (H) <150 mg/dL Final Comment: <150 mg/dL, Normal 150-199 mg/dL, Borderline high 200-499 mg/dL, High >499 mg/dL, Very high -- This patient is not at target, but is not taking her statin. -- Prior FLP while taking statin consistently was at target. 4. Nephropathy screening: Annual measurement of urine albumin excretion is recommended in patients with diabetes. Albumin/Creat Ratio (mg/g) Date Value 06/27/2022 <15 06/01/2021 Not calculated Protein, Urine (mg/dL) Date Value 12/16/2014 neg Creatinine, Ur Random (UCRR) (mg/dL) Date Value 06/27/2022 78.4 06/01/2021 175.5 -- This patient does not have microalbuminuria and is not on TERRI-I or ARB therapy. 5. Ophthalmology: Annual dilated eye exams are recommended for patients with type 1 and type 2 diabetes. -- This patient is up to date with their annual eye exam and has no history of retinopathy. -- Last seen 12/2021 6. Obesity Class III: -- Switch from Trulicity to Mounjaro. Patient to continue to follow up with her PCP and with other consultants regarding her other medical problems. Any part of this document that has been added/copied & pasted from other documents has been reviewed for accuracy and updated as appropriate at the time of the patient encounter Esme Callejas APRN.SIRISHA (Signed electronically to expedite mailing) documented in this encounter [facility] 10-21-2022 Miscellaneous Notes Form completed, please fax. Form received from [employer] requesting PA for Trulicity. Placed on Esme's desk for completion documented in this encounter [facility] 09-05-2022 Miscellaneous Notes Called patient gave message from Dr. Chappell below. Patient states understanding and will call to schedule. Fermin Her RN Patient called and left on nursing VM line stating she is returning our call. Call placed to patient. LVM for patient to call [phone], push option 3 to speak to a nurse. Kiana Huffman RN Left message for pt to call back. Michelle Judge RN Called pt with no answer. VVM left for pt to call office [phone] option 3 to speak to the nurse. Aziza Tang RN Had pelvic ultrasound for DUB. Incidental finding of ovarian cyst. Needs repeat ultrasound in 6-8 weeks documented in this encounter [facility] 08-31-2022 Miscellaneous Notes Radiology Service Progress Note DATE OF SERVICE: August 31, 2022 TIME: 5:10 PM PATIENT IDENTITY VERIFICATION COMPLETED USING TWO (2) STANDARD IDENTIFIERS: Name and Date of confirmed by patient verbally and Name and Date of confirmed by identification band. FALL SCREENING: Has the patient had 2 falls in the last year or 1 fall with injury or currently using an Ambulatory Assistive Device (Walker, Cane, Wheelchair, Crutches, etc.)? No PATIENT GENDER DATA: Female. status: : No status: NO. PATIENT RELEVANT IMPLANT DATA REVIEWED: Yes ALLERGIES: Reviewed and unchanged CONTRAST ALLERGY: NO. EXAM: MRI - CONTRAST TYPE: GROUP II PERIPHERAL IV DATA: Ambulatory: A peripheral IV was started in the Right antecubital site with a Angio cath: 24 gauge. RADIOLOGY DEPARTMENT: MR; Exam(s) Completed: Head: Routine Brain SIGNATURE: Jaswant Villanueva. Shelli bishop PATIENT NAME: Juliette Marrufo DATE: August 31, 2022 TIME: 5:10 PM documented in this encounter [facility] 08-31-2022 History of Present illness Narrative CC: Follow up HPI: 32 year old female presents for follow up Saw patient on 07/18 for PINZON Started on amitriptyline but didn't help so stopped 2 weeks ago as it wasn't helping Getting MRI later today Saw endo on 07/12 and taking diabetes meds Sugars running in upper 100s JONATHAN and depression Started back on bupropion on 06/29 Has been emotional and crying a lot Admits to work stress Irritable Snapping at boyfriend Struggling with concentration Has history of ADHD Was on adderall xr in past but stopped as it was making dizziness from POTS worse Needs refill of albuterol Had COVID a few weeks ago Last 5 Encounter BP Readings: Date: BP: 08/31/2022 122/87[right arm[ 07/18/2022 127/87 07/12/2022 110/80 06/29/2022 120/83 06/27/2022 131/80 Last 5 Encounter Wt Readings: Date: Wt: 08/31/2022 128.9 kg (284 lb 1.6 oz) 07/18/2022 131.8 kg (290 lb 8 oz) 07/12/2022 128.8 kg (284 lb) 06/29/2022 127.9 kg (282 lb) 06/27/2022 128.6 kg (283 lb 9.6 oz) Objective: BP 122/87 Pulse 89 Resp 16 Wt 128.9 kg (284 lb 1.6 oz) LMP 08/29/2022 (Approximate) BMI 40.76 kg/m General appearance:Obese, well appearing, alert, in no acute distress, and well-hydrated, well nourished Neck: supple and no adenopathy Heart: regular rate and rhythm, without murmur Lungs: clear to auscultation, without rales or wheeze, good air exchange Ext: no edema in LE bilaterally Psych: Posture and motor behavior: normal posture and motor behavior Dress, grooming, personal hygiene: normal dress and grooming Facial expression: smiling and good eye contact Speech: normal speech Mood: euthymic Coherency and relevance of thought: normal thought processes Memory: normal memory ASSESSMENT/PLAN: 1. JONATHAN (generalized anxiety disorder) - ICD9: 300.02, ICD10: F41.1 (primary diagnosis) 2. Current moderate episode of major depressive disorder, unspecified whether recurrent (HCC) - ICD9: 296.22, ICD10: F32.1 - will increase bupropion from 150 to 300 mg - BUPROPION XL 300 MG 24 HR TAB - ALPRAZOLAM 0.5 MG TABLET 3. Attention deficit disorder (ADD) without hyperactivity - ICD9: 314.00, ICD10: F98.8 - will start on concerta. Pt to message me in 2 weeks with how she is tolerating med - METHYLPHENIDATE ER 27 MG TABLET,EXTENDED RELEASE 24 HR 4. Headaches - ICD9: 784.0, ICD10: R51.9 - getting MRI today Follow up in 3 months Opal Malloy DO documented in this encounter [facility] 08-10-2022 History of Present illness Narrative The patient presents for requested ultrasound. Full report available in the Imaging tab in [employer]. Nadeen Hunter MD documented in this encounter [facility] 07-28-2022 Miscellaneous Notes Prior Authorization initiated for Trulicity via covermymeds. Will await determinaton documented in this encounter [facility] 07-28-2022 Miscellaneous Notes Prior Authorization initiated via covermymeds for Dexcom. Will await determination documented in this encounter [facility] 07-18-2022 History of Present illness Narrative CC: Headache HPI: 32 year old female presents for headache I saw pateint on 06/29 for physical Treated with prednisone 40 mg x 5 days for PINZON Prednisone took the edge off but still having HAs Now taking ibuprofen 400-600 mg in morning Develops PINZON within an hour of waking up in morning Doesn't have PINZON when she first wakes up though Pain typically feels like pressure but sometimes sharp and throbbing Uncertain what makes pain worse Has been having headaches for almost two months now HAs behind both eyes or sometimes just around left eye Feels like vision is slower to focus No nausea or vomiting No sinus congestion No ear pain No dizziness Balance is ok Blood pressure has been fine Blood sugar is improved now that she is taking meds, states it was 108 this morning Sleeping ok She does snore Feels refreshed in morning Had sleep study in 2014 and had mild KAISER (weight is about the same) Doesn't typically get HAs Had normal MRI Brain 09/2017 Last 3 Encounter BP Readings: Date: BP: 07/18/2022 127/87 07/12/2022 110/80 06/29/2022 120/83 Objective: BP 127/87 Pulse 83 Resp 16 Wt 131.8 kg (290 lb 8 oz) LMP 06/27/2022 (Approximate) BMI 41.68 kg/m General appearance:well appearing, alert, in no acute distress, and well-hydrated, well nourished Neck: full ROM without pain. Left paraspinal muscle tightness Face: No maxillary or frontal sinus tenderness. No left zoroastrianism tenderness MS: UE strength tenderness Back: Left trapezius muscle tightness Neuro: CN II-XII grossly intact ASSESSMENT/PLAN: 1. New daily persistent headache - ICD9: 339.42, ICD10: G44.52 - Tenderness on left side of neck but symptoms don't sound like tension HAs - will get MRI as HAs new and didn't respond to prednisone - MRI BRAIN WO/W IVCON - IV CONTRAST (RADIOLOGY PROCEDURE) - AMITRIPTYLINE 25 MG TABLET Opal Malloy DO documented in this encounter [facility] 07-12-2022 Instructions Esme Callejas APRN.SIRISHA - 07/12/2022 8:10 AM EDT Plan Continue Tresiba 70 units daily Continue Trulicity 3 mg once weekly Continue Jardiance 10 mg once daily Continue Humalog 10-20 units TID with meals Check your blood sugar 4 times daily and record in log book to bring to all appointments. Bring your meter to all appointments as well. Glucose targets as: Fasting 90-130, before meals 100-130, and bedtime under 150 mg/dL. Notify office for consistently elevated or any low blood sugars <70 Follow up with me in 3 months documented in this encounter [facility] 07-12-2022 History of Present illness Narrative Endocrinology Follow-up History of Present Illness Juliette Marrufo is a 32 year old female presents today for follow up of DM Type 2. Historically when stressed she has stopped her medications/insulin. Glucose is well controlled when taking regimen consistently. Admits this summer she stopped all of her diabetes medications. Recent HbA1c is 12.6%. She has restarted her regimen 2 weeks ago. 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 She reports twice she left the house with the intention of not taking her insulin but then decided to go back inside and take this. She has a good support system- sees a counselor and has her boyfriend. She also has a few friends who text her daily to check if she has taken her medication. She is not currently following with weight management as she had to miss work for appointments and this was added stress. She prefers in person appointments for accountability. Date of Diagnosis: 2012, preceded by PCOS for years Last HbA1c: Hemoglobin A1C (%) Date Value 06/27/2022 12.6 01/11/2021 10.9 06/25/2019 7.6 11/03/2018 7.7 07/23/2018 11.0 01/30/2018 9.4 Hemoglobin A1C (POCT) (%) Date Value 09/02/2021 7.0 05/27/2021 9.2 10/04/2019 7.9 04/03/2019 8.5 Complications Microvascular: none Macrovascular: none Associated diagnoses/complications are: PCOS with clinical and biochemical hyperandrogenism/ irregular periods/ fertility issues, periods regular in the last couple years, on BCPs, sees Dr Bland. TINAJERO (liver biopsy showed stage 2 fibrosis), seen by Hepatology Dr Mireles. HPL managed by PCP, on statin. Depression, followed by PCP. Asthma, sleep apnea s/p cholecx 2011 Health Maintenance Topics Topic Date Due DIABETIC FOOT EXAM 12/18/2021 Physical Activity: Sedentary Diet: CHO Controlled Diet SMBG Frequency of Monitoring: Four times a Day using Dexcom- had a few extra Sophie's so used these up Summary of Personal CGM Findings: Dates worn: 06/29/2022-07/12/2022 CGM Type: Sophie 1- CGM recording is adequate for interpretation. Worn 92% of time. 2- Average glucose is 160 mg/dl. 3. 73% time in range 70-180mg/dL 4. Coefficient of variation: 30.1% 5. Total frequency of hypoglycemia: 0% with BG<70 * Hypoglycemia patterns: none *Nocturnal hypoglycemia none noted 6- Hyperglycemic episodes 27% with BG>180 * Hyperglycemia Patterns: afternoons/evenings Previous DM meds: Jardiance- caused yeast infections in the past, but no issues so far since restarting Metformin- GI SE Current DM Related Medications: Current Medications 07/12/2022 DIABETES THERAPIES Medication Dosage Pharm Subclass dulaglutide (TRULICITY) 3 mg/0.5 mL pen injector Inject 3 mg subcutaneously one time a week. Antihyperglycemic - Glucagon-Like Peptide-1 (GLP-1) Receptor Agonists insulin degludec (TRESIBA FLEXTOUCH U-100) 100 unit/mL (3 mL) injection pen Inject 70 Units subcutaneously once daily. Insulin Analogs - Long Acting insulin lispro (HUMALOG KWIKPEN) 100 unit/mL INJECT 3 TIMES DAILY BEFORE MEALS PER SLIDING SCALE (2 UNITS FOR EACH 50>150) MAX 30 UNITS PER DAY Insulin Analogs - Rapid Acting JARDIANCE 10 mg tablet Take 1 tablet by mouth once daily with breakfast Antihyperglycemic - Sodium Glucose Cotransporter-2 (SGLT2) Inhibitors CARDIOVASCULAR Medication Dosage Pharm Subclass atorvastatin (LIPITOR) 10 mg tablet Take 1 tablet by mouth once daily Antihyperlipidemic - HMG CoA Reductase Inhibitors (statins) metoprolol succinate ER (TOPROL XL) 25 mg 24 hr tablet Take 1.5 tablets by mouth once daily. Beta Blockers Cardiac Selective DIURETICS Medication Dosage Pharm Subclass spironolactone (ALDACTONE) 100 mg tablet Take 1 tablet by mouth once daily. Diuretic - Aldosterone Receptor Antagonist, Non-selective OTHER Medication Dosage Pharm Subclass albuterol HFA (PROAIR HFA) 90 mcg/actuation inhaler Inhale 2 Puffs as instructed every 4 hours as needed. Asthma/COPD Therapy - Beta 2-Adrenergic Agents, Inhaled, Short Acting blood sugar diagnostic (ONETOUCH VERIO TEST STRIPS) test strip Use as instructed to test blood sugar twice daily (on insulin) Medical Supplies and DME - Blood Glucose Tests Blood-Glucose Sensor (Zoobean G6 SENSOR) nicky Medical Supplies and DME - Glucose Monitoring Test Supplies buPROPion XL (WELLBUTRIN XL) 150 mg 24 hr tablet Take 1 tablet by mouth once daily. Antidepressant-Norepinephrine and Dopamine Reuptake Inhibitors (NDRIs) flash glucose scanning reader (EatSTYLE SOPHIE 2 READER) Use as directed to check blood sugar 4 times per day and as needed for symptoms of low sugar Medical Supplies and DME - Glucose Monitoring Test Supplies flash glucose sensor (FREESTYLE SOPHIE 2 SENSOR) kit Apply 1 sensor to the back of the arm every 14 days to monitor blood sugar 4x/day and as needed for symptoms of low sugar. Rotate site Medical Supplies and DME - Glucose Monitoring Test Supplies fluconazole (DIFLUCAN) 150 mg tablet Take 1 tablet PO q week x 6 months Antifungal - Triazoles Lancets lancets Use as instructed to test blood sugar twice daily (on insulin) Medical Supplies and DME - Glucose Monitoring Test Supplies loratadine (CLARITIN) 10 mg tablet Take 1 tablet by mouth once daily. Antihistamines - 2nd Generation magnesium oxide (MAG-OX) 400 mg (241.3 mg magnesium) tablet Take 1 tablet by mouth once daily. Antacid - Magnesium Multivitamin capsule Take 1 capsule by mouth once daily. Multivitamins ondansetron (ZOFRAN) 4 mg tablet Take 1 tablet by mouth every 8 hours as needed for nausea/vomiting. Antiemetic - Selective Serotonin 5-HT3 Antagonists topiramate (TOPAMAX) 25 mg tablet take 1/2 tablet for 2 weeks then increase to a full tablet Anticonvulsant - Monosaccharide Derivatives tranexamic acid (LYSTEDA) 650 mg tablet Take 2 tablets by mouth every 8 hours. during menses for heavy menstrual bleeding. Maximum of 5 days. Hemostatic Systemic - Antifibrinolytic Agents Past History, Medications, Allergies PAST MEDICAL HISTORY Diagnosis Date Anxiety and depression Asthma Diabetes mellitus (HCC) H/O cold sores TINAJERO (nonalcoholic steatohepatitis) KAISER (obstructive sleep apnea) PCOS (polycystic ovarian syndrome) PAST SURGICAL HISTORY Procedure Laterality Date REMOVAL GALLBLADDER 09/01/2011 ALLERGIES No Known Allergies FAMILY HISTORY Problem Relation Age of Onset No Ocular Disease Maternal Grandfather other (lung cancer) Maternal Grandfather Cervical Cancer Mother No Ocular Disease Mother Psoriasis Mother No Ocular Disease Father other (Lung problem) Father No Ocular Disease Maternal Grandmother No Ocular Disease Paternal Grandmother No Ocular Disease Paternal Grandfather other (Colon polyps) Paternal Uncle Social History Tobacco Use Smoking status: Never Smokeless tobacco: Never Vaping Use Vaping Use: Never used Substance Use Topics Alcohol use: Yes Comment: rare. about 5x per year Drug use: No Review of Systems GENERAL: No weight loss, malaise or fevers RESPIRATORY: Negative for cough, hemoptysis, wheezing, COPD, dyspnea or shortness of breath CARDIOVASCULAR: Negative for chest pain, leg swelling, hypertension, CHF or palpitations GI: No nausea, vomiting, or diarrhea ENDOCRINE: Negative for cold or heat intolerance, polyuria, polydipsia and goiter Feet: No problems NEUROLOGIC:Negative for focal numbness or weakness, headaches and dizziness or syncope. Physical examination BP 110/80 Pulse 68 Wt 128.8 kg (284 lb) LMP 06/27/2022 (Approximate) BMI 40.75 kg/m General appearance: Well appearing, alert, in no acute distress, well-hydrated, well nourished. Skin: Skin color, texture, turgor normal, no suspicious rashes or lesions HEART: normal rate LUNGS: unlabored, normal respiratory rate EXTREMITIES No deformities, No skin discoloration and No edema NEURO: Speech normal, mental status intact, no tremor noted. Feet:Shoes and socks removed, No deformities, ulcers, calluses, normal distal pulses, and sensitive to 10 gm monofilament Previous Laboratory Results LABS Glucose (mg/dL) Date Value 06/27/2022 354 07/09/2021 128 06/01/2021 136 01/11/2021 273 Potassium (mmol/L) Date Value 06/27/2022 4.5 07/09/2021 4.1 Sodium (mmol/L) Date Value 06/27/2022 133 07/09/2021 140 06/01/2021 139 01/11/2021 133 Chloride (mmol/L) Date Value 06/27/2022 97 07/09/2021 105 06/01/2021 104 01/11/2021 102 CO2 (mmol/L) Date Value 06/27/2022 23 07/09/2021 24 06/01/2021 23 01/11/2021 21 Creatinine (mg/dL) Date Value 06/27/2022 0.54 07/09/2021 0.81 06/01/2021 0.65 01/11/2021 0.59 BUN (mg/dL) Date Value 06/27/2022 9 07/09/2021 8 06/01/2021 7 01/11/2021 7 Anion Gap (mmol/L) Date Value 06/27/2022 13 07/09/2021 11 06/01/2021 12 01/11/2021 10 Calcium (mg/dL) Date Value 07/09/2021 9.5 06/01/2021 9.5 01/11/2021 9.1 Calcium, Total (mg/dL) Date Value 06/27/2022 9.4 eGFR- (no units) Date Value 07/09/2021 >60 06/01/2021 >60 01/11/2021 >60 eGFR-All Other Races (.) Date Value 07/09/2021 >60 06/01/2021 >60 01/11/2021 >60 Estimated Glomerular Filtration Rate (mL/min/1.73m ) Date Value 06/27/2022 125 ALT (U/L) Date Value 07/09/2021 18 06/01/2021 27 12/02/2019 45 TSH Date Value Ref Range Status 05/20/2022 1.040 0.270 - 4.200 mIU/L Final Comment: If the patient is , TSH reference range varies by gestational period: First Trimester (weeks 9-12): 0.180-2.990 mIU/L Second Trimester: 0.110-3.980 mIU/L Third Trimester: 0.480-4.710 mIU/L Andrew Erickson et al. A Practical Approach for the Verifications and Determination of Site- and Trimester-Specific Reference Intervals for Thyroid Function tests in . Thyroid, 2019:29:3:412-420. Samuel Ervin, et al. 2017 Guidelines of the [place] Thyroid Association for the Diagnosis and Management of Thyroid Disease during and the . Thyroid, 2017:27:3:315-389. 07/09/2021 0.699 0.270 - 4.200 uU/mL Final Comment: If the patient is , TSH reference range varies by gestational period: First Trimester (weeks 9-12): 0.180-2.990 mcIU/mL Second Trimester: 0.110-3.980 mcIU/mL Third Trimester: 0.480-4.710 mcIU/mL Andrew Erickson et al. A Practical Approach for the Verifications and Determination of Site- and Trimester-Specific Reference Intervals for Thyroid Function tests in . Thyroid, 2019:29:3:412-420. Samuel Ervin et al. 2017 Guidelines of the [place] Thy[employer] Association for the Diagnosis and Management of Thyroid Disease during and the . Thyroid, 2017:27:3:315-389. 12/02/2019 1.350 0.270 - 4.200 uU/mL Final Comment: If the patient is , TSH reference range varies by gestational period: First Trimester (weeks 9-12): 0.180-2.990 mcIU/mL Second Trimester: 0.110-3.980 mcIU/mL Third Trimester: 0.480-4.710 mcIU/mL Andrew Erickson et al. A Practical Approach for the Verifications and Determination of Site- and Trimester-Specific Reference Intervals for Thyroid Function tests in . Thyroid, 2019:29:3:412-420. Samuel Ervin et al. 2017 Guidelines of the [place] Thy[employer] Association for the Diagnosis and Management of Thyroid Disease during and the . Thyroid, 2017:27:3:315-389. Free T4 Date Value Ref Range Status 06/25/2019 1.0 0.9 - 1.7 ng/dL Final 05/31/2017 1.0 0.9 - 1.7 ng/dL Final 06/15/2015 1.1 0.7 - 1.8 ng/dL Final Impression/Recommendations IMPRESSION Juliette Marrufo is a 32 year old here for evaluation of DM Type 2 with no known complications. HbA1c is 12.6%. RECOMMENDATIONS: 1. Glycemic control: Target HbA1C is less than 7.0% per ADA guidelines. Glucose is well controlled while on regimen- TIR is 73% with 0% hypoglycemia. Several barriers to compliance with regimen which she is actively addressing with the support of her counselor and family/friends. Plan to transition to Soo when available through her insurance (she has Medicaid as secondary and so doesn't qualify for coupon card). I have advised as follows: Plan Continue Tresiba 70 units daily Continue Trulicity 3 mg once weekly Continue Jardiance 10 mg once daily Continue Humalog 10-20 units TID with meals Check your blood sugar 4 times daily and record in log book to bring to all appointments. Bring your meter to all appointments as well. Glucose targets as: Fasting 90-130, before meals 100-130, and bedtime under 150 mg/dL. Notify office for consistently elevated or any low blood sugars <70 Reestablish with PharmD Follow up with me in 3 months The patient was reminded to check their blood glucose as directed and to record the data in a logbook. This patient was advised to bring their logbook to each office visit. I recommended at least 150 minutes per week of moderate physical activity, such as walking and to reduce carbohydrates and overall caloric intake. 2. Hypertension/BP control: BP goal for patients with diabetes is 130/80. -- This patient is at target on their current regimen. 3. Lipids: Target LDL cholesterol in patients with diabetes is less than 100, less than 70 if patient has overt CVD. Several studies have shown cardiovascular benefits of statin therapy in all patients with diabetes over age 40 with at least 1 CVD risk factor. Cholesterol, Total Date Value Ref Range Status 06/27/2022 264 (H) <200 mg/dL Final Comment: <200 mg/dL, Desirable 200-239 mg/dL, Borderline high >239 mg/dL, High HDL Cholesterol Date Value Ref Range Status 06/27/2022 50 >39 mg/dL Final Comment: 40-59 mg/dL, Acceptable >59 mg/dL, High: Negative risk factor for coronary heart disease <40 mg/dL, Low: Positive risk factor for coronary heart disease LDL Cholesterol Date Value Ref Range Status 06/27/2022 164 (H) <100 mg/dL Final Comment: <100 mg/dL, Optimal 100-129 mg/dL, Near optimal/above optimal 130-159 mg/dL, Borderline high 160-189 mg/dL, High >189 mg/dL, Very high Secondary prevention optimal LDL Cholesterol levels are recommended to be < 70 mg/dL Triglyceride Date Value Ref Range Status 06/27/2022 251 (H) <150 mg/dL Final Comment: <150 mg/dL, Normal 150-199 mg/dL, Borderline high 200-499 mg/dL, High >499 mg/dL, Very high -- This patient is not at target, but just restarted statin. -- Prior FLP while taking statin consistently was at target. 4. Nephropathy screening: Annual measurement of urine albumin excretion is recommended in patients with diabetes. Albumin/Creat Ratio (mg/g) Date Value 06/27/2022 <15 06/01/2021 Not calculated Protein, Urine (mg/dL) Date Value 12/16/2014 neg Creatinine, Ur Random (UCRR) (mg/dL) Date Value 06/27/2022 78.4 06/01/2021 175.5 -- This patient does not have microalbuminuria and is not on TERRI-I or ARB therapy. 5. Ophthalmology: Annual dilated eye exams are recommended for patients with type 1 and type 2 diabetes. -- This patient is up to date with their annual eye exam and has no history of retinopathy. -- Last seen 12/2021 Patient to continue to follow up with her PCP and with other consultants regarding her other medical problems. 6. Obesity Class III: -- Plan to switch to Mounjaro when available as this is superior to Trulicity for weight loss. Any part of this document that has been added/copied & pasted from other documents has been reviewed for accuracy and updated as appropriate at the time of the patient encounter Esme Callejas APRN.SIRISHA (Signed electronically to expedite mailing) documented in this encounter [facility] 07-01-2022 Miscellaneous Notes Noted - encounter pended for 1 week. If patient hasn't read [facility] message will send letter as final attempt. Tati Strauss, PharmD, BCACP [employer] Pharmacist [facility] Telephoned the patient to schedule a new Primary Care pharmacy appt. Left a message. Made two attempts to contact the patient. Patient has not returned the call. If the patient returns a call, an appt will be scheduled. Encounter routed to the clinical pharmacist. Telephoned the patient to schedule a new Primary Care pharmacy appt. Left a message. documented in this encounter [facility] 06-29-2022 History of Present illness Narrative CC: Physical HPI: 32 year old female here for physical Last seen on 06/27 by cardiology regarding tachycardia and palpitations Had stopped metoprolol but advised to resume and she will Hasn't been having a lot of palpitations but still having dizziness Diabetes Follows with endo but hasn't seen since September Hasn't been checking BS Has been off medication for 6 months Has appointment on 07/12 HgA1C 12.6 on 06/27 No increased thirst or urinary frequency No blurry vision She has had daily PINZON for past month Has constant dull PINZON and intermittently worsens Uncertain what makes it worse Mood hasn't been good Feeling down Also with increased anxiety Easily overwhelmed and irritable Not sleeping well Having trouble falling asleep as well as staying asleep Had counseling appointment last night Started new job in November and likes job 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 but they also have respite weekends once a month currently Last 4 Encounter BP Readings: Date: BP: 06/29/2022 120/83 06/27/2022 131/80 05/26/2022 103/76 05/20/2022 120/80 Last 5 Encounter Wt Readings: Date: Wt: 06/29/2022 127.9 kg (282 lb) 06/27/2022 128.6 kg (283 lb 9.6 oz) 05/20/2022 126.6 kg (279 lb) 12/27/2021 129.3 kg (285 lb) 11/01/2021 127.6 kg (281 lb 3.2 oz) Component Latest Ref Rng & Units 01/11/2021 05/27/2021 06/01/2021 07/09/2021 09/02/2021 05/20/2022 06/27/2022 Protein, Total 6.3 - 8.0 g/dL 7.5 8.2 (H) Albumin 3.9 - 4.9 g/dL 4.4 4.8 Calcium 8.5 - 10.2 mg/dL 9.1 9.5 9.5 9.4 Bilirubin, Total 0.2 - 1.3 mg/dL 1.0 1.7 (H) Alkaline Phosphatase 34 - 123 U/L 88 90 AST 13 - 35 U/L 23 19 Glucose 74 - 99 mg/dL 273 (H) 136 (H) 128 (H) 354 (H) BUN 7 - 21 mg/dL 7 7 8 9 Creatinine 0.58 - 0.96 mg/dL 0.59 0.65 0.81 0.54 (L) Sodium 136 - 144 mmol/L 133 (L) 139 140 133 (L) Potassium 3.7 - 5.1 mmol/L 4.4 4.3 4.1 4.5 Chloride 97 - 105 mmol/L 102 104 105 97 CO2 22 - 30 mmol/L 21 (L) 23 24 23 Anion Gap 9 - 18 mmol/L 10 12 11 13 ALT 7 - 38 U/L 27 18 eGFR- >60 >60 >60 eGFR-All Other Races . >60 >60 >60 WBC 3.70 - 11.00 k/uL 8.53 RBC 3.90 - 5.20 m/uL 5.39 (H) Hemoglobin 11.5 - 15.5 g/dL 14.0 Hematocrit 36.0 - 46.0 % 42.8 MCV 80.0 - 100.0 fL 79.4 (L) MCH 26.0 - 34.0 pg 26.0 MCHC 30.5 - 36.0 g/dL 32.7 RDW-CV 11.5 - 15.0 % 12.9 Platelet Count 150 - 400 k/uL 196 MPV 9.0 - 12.7 fL 12.5 Absolute nRBC <0.01 k/uL <0.01 eGFR >=60 mL/min/1.73m 125 Cholesterol, Total <200 mg/dL 290 (H) 153 264 (H) Triglyceride <150 mg/dL 202 (H) 90 251 (H) HDL Cholesterol >39 mg/dL 42 53 50 LDL Cholesterol <100 mg/dL 208 (H) 82 164 (H) Non HDL Cholesterol <130 mg/dL 248 (H) 100 214 (H) Fasting Time hrs 12 12 12 VLDL Cholesterol <30 mg/dL 40 (H) 18 50 (H) TC:HDL Ratio <5.10 6.90 (H) 2.89 5.28 (H) LDL:HDL Ratio <2.54 4.95 (H) 1.55 3.28 (H) Creatinine, Ur Random (UCRR) 20 - 300 mg/dL 175.5 Albumin, Urine Random mg/L <12.0 Albumin/Creat Ratio <30 mg/g Not calculated Hemoglobin A1C 4.3 - 5.6 % 10.9 (H) 12.6 (H) Estimated Average Glucose mg/dL 266 315 Hemoglobin A1C (POCT) 4.2 - 5.6 % 9.2 (A) 7.0 (A) Magnesium 1.7 - 2.3 mg/dL 2.0 1.6 (L) TSH 0.270 - 4.200 mIU/L 0.699 1.040 / MANAGER R D / SEXUAL: Saw integrated circuit design engineer in May Last pap: 09/2019 Health maintenance: Diet: Hasn't been good for past 6 months. Eating fast food again. Also drinking pop again Exercise: No regular routine Dentist: Saw last month Eye doctor: Last saw in December Family history reviewed and updated in [facility] Social history: Lives alone. Non-smoker. Drinks etoh less than once a month REVIEW OF SYSTEMS GENERAL: Fatigue HEENT: No changes in hearing or vision, no nose bleeds or other nasal problems NECK: Negative for lumps, goiter, pain and significant neck swelling RESPIRATORY: Negative for cough, hemoptysis, wheezing, COPD, dyspnea or shortness of breath CARDIOVASCULAR: See HPI GI: Stools alternate between diarrhea and constipation : No history of dysuria, frequency or incontinence MUSCULOSKELETAL: Saw ortho regarding knee pain. States she never heard back from PT SKIN: Negative for lesions, rash, and itching PSYCH: See HPI HEMATOLOGY/LYMPHOLOGY: Negative for prolonged bleeding, bruising easily or swollen nodes ENDOCRINE: See HPI NEURO: SEE HPI PHYSICAL EXAMINATION: BP 120/83 Pulse 73 Ht 177.8 cm (5' 10 ) Wt 127.9 kg (282 lb) LMP 06/27/2022 (Approximate) BMI 40.46 kg/m General appearance: Obese, well appearing, alert, in no acute distress, and well-hydrated, well nourished Neck: Supple, no adenopathy; thyroid symmetric Lungs: lungs clear to auscultation no wheezing or rhonchi Heart: RRR without murmur, gallop, or rubs. No ectopy Extremities: No edema Psych: Posture and motor behavior: normal posture and motor behavior Dress, grooming, personal hygiene: normal dress and grooming Facial expression: tearful but good eye contact Speech: normal speech Mood: down Coherency and relevance of thought: normal thought processes Memory: normal memory ASSESSMENT/PLAN: 1. Well adult exam - ICD9: V70.0, ICD10: Z00.00 (primary diagnosis) - Counseled on healthy diet and regular exercise - Follow up for annual exam in one year 2. Encounter for immunization - ICD9: V03.89, ICD10: Z23 - INFLUENZA VACCINE QUADRIVALENT 6 MO - 64 YRS IM 3. Chondromalacia, knee, right - ICD9: 717.7, ICD10: M94.261 - CONSULT TO PHYSICAL THERAPY 4. Dizziness - ICD9: 780.4, ICD10: R42 - Pt to resume metoprolol 5. Severe obesity (BMI >= 40) (HCC) - ICD9: 278.01, ICD10: E66.01 - needs to work on diet 6. JONATHAN (generalized anxiety disorder) - ICD9: 300.02, ICD10: F41.1 7. Current moderate episode of major depressive disorder, unspecified whether recurrent (HCC) - ICD9: 296.22, ICD10: F32.1 - continue counseling - BUPROPION XL 150 MG TAB 8. Type 2 diabetes mellitus with hyperglycemia, with long-term current use of insulin (HCC) - ICD9: 250.00, 790.29, V58.67, ICD10: E11.65, Z79.4 poorly controlled Poor adherence to plan of care. - Scheduled to see endo on 07/12 - CONSULT TO PHARMACY Follow up in 2 months Opal Malloy DO documented in this encounter [facility] 05-26-2022 Instructions Gisselle Walker PA-C - 05/26/2022 3:31 PM EDT Benzoyl peroxide acne wash - can use a loofa and apply to your back in the shower. Send me update in 3-5 days - potentially have partner take picture to upload to [employer]. documented in this encounter [facility] 05-26-2022 History of Present illness Narrative PROGRESS NOTE Persons Present: patient Chief Complaint/Reason: rash on back HPI: Patient is a 31 yo female who presents today for Rash on her back. Noticed on Monday - thought it was only one bump and then boyfriend took a look and reported about 20 bumps. Noticeable but not painful. Denies draining or bleeding from areas Rash is not in genital area or extremities. Headache today but that could just be in my head. Nausea - but I just started back up on trulicty - on Monday. Had been off it for months. [place] cold at work in jeans and sweatshirt No fevers. No joint pain or muscle pain that's new. I'm now anxious about possible monkeypox and wanted to have it checked Denies any contact with anyone exposed to monkeypox or with monkeypox. Only has skin contact with her male partner. She is unsure if there is new laundry detergent as she does not do the laundry. Denies new body lotion or topicals. Denies being outside in the heat a lot. Data Reviewed: Most recent labs and imaging results. PAST MEDICAL HISTORY Diagnosis Date Anxiety and depression Asthma Diabetes mellitus (HCC) H/O cold sores TINAJERO (nonalcoholic steatohepatitis) KAISER (obstructive sleep apnea) PCOS (polycystic ovarian syndrome) PAST SURGICAL HISTORY Procedure Laterality Date REMOVAL GALLBLADDER 09/01/2011 Current medication regimen is as listed below. Patient denies any side effects of medication. Current Outpatient Medications on File Prior to Visit Medication Sig tranexamic acid (LYSTEDA) 650 mg tablet Take 2 tablets by mouth every 8 hours. during menses for heavy menstrual bleeding. Maximum of 5 days. Blood-Glucose Sensor (DEXCOM G6 SENSOR) nicky metoprolol succinate ER (TOPROL XL) 25 mg 24 hr tablet Take 1.5 tablets by mouth once daily. JARDIANCE 10 mg tablet Take 1 tablet by mouth once daily with breakfast buPROPion XL (WELLBUTRIN XL) 150 mg 24 hr tablet Take 1 tablet by mouth once daily. dulaglutide (TRULICITY) 3 mg/0.5 mL pen injector Inject 3 mg subcutaneously one time a week. topiramate (TOPAMAX) 25 mg tablet take 1/2 tablet for 2 weeks then increase to a full tablet loratadine (CLARITIN) 10 mg tablet Take 1 tablet by mouth once daily. ondansetron (ZOFRAN) 4 mg tablet Take 1 tablet by mouth every 8 hours as needed for nausea/vomiting. spironolactone (ALDACTONE) 100 mg tablet Take 1 tablet by mouth once daily. atorvastatin (LIPITOR) 10 mg tablet Take 1 tablet by mouth once daily insulin lispro (HUMALOG KWIKPEN) 100 unit/mL INJECT 3 TIMES DAILY BEFORE MEALS PER SLIDING SCALE (2 UNITS FOR EACH 50>150) MAX 30 UNITS PER DAY insulin degludec (TRESIBA FLEXTOUCH U-100) 100 unit/mL (3 mL) injection pen Inject 70 Units subcutaneously once daily. blood sugar diagnostic (DekkoUCH VERIO TEST STRIPS) test strip Use as instructed to test blood sugar twice daily (on insulin) Lancets lancets Use as instructed to test blood sugar twice daily (on insulin) fluconazole (DIFLUCAN) 150 mg tablet Take 1 tablet PO q week x 6 months (Patient not taking: No sig reported) flash glucose scanning reader (FREESTYLE SOPHIE 2 READER) Use as directed to check blood sugar 4 times per day and as needed for symptoms of low sugar flash glucose sensor (FREESTYLE SOPHIE 2 SENSOR) kit Apply 1 sensor to the back of the arm every 14 days to monitor blood sugar 4x/day and as needed for symptoms of low sugar. Rotate site Multivitamin capsule Take 1 capsule by mouth once daily. albuterol HFA (PROAIR HFA) 90 mcg/actuation inhaler Inhale 2 Puffs as instructed every 4 hours as needed. No current facility-administered medications on file prior to visit. REVIEW OF SYSTEMS: See HPI BP 103/76 Pulse 95 Temp 36.4 C (97.6 F) (Temporal) LMP 04/29/2022 (Approximate) PHYSICAL EXAMINATION: Physical Exam Constitutional: General: She is not in acute distress. Appearance: She is obese. She is not ill-appearing, toxic-appearing or diaphoretic. Skin: Comments: Multiple erythematous papules across back, seeming to run along bra line. Some closed comedonal lesions. No umbilication of lesions. See photographs. Neurological: General: No focal deficit present. Mental Status: She is alert and oriented to person, place, and time. Motor: No weakness. Gait: Gait normal. Psychiatric: Mood and Affect: Mood normal. Behavior: Behavior normal. Thought Content: Thought content normal. ASSESSMENT/PLAN: 1. Skin lesions - ICD9: 709.9, ICD10: L98.9 - Low suspicion for monkeypox given appearance of rash, lack of symptoms associated with monkeypox, lack of exposure. - possible acne vs. Contact dermatitis. - Advised patient to use acne wash for 3-4 days in the shower to see If symptoms improve. - Patient to update if lesions change, symptoms worsen or progress. Gisselle Walker PA-C Medical Decision Making: Problems: Low: Acute, uncomplicated illness or injury Risk: Low: Low risk from testing/treatment Medical Decision Making Level: 3 - Low documented in this encounter [facility] 05-26-2022 Miscellaneous Notes Called patient Spoke with patient Patient has been added on E Walker schedule for today in person Patient is aware of time and location I would recommend in person visit to evaluate Opal Nathaniel Malloy DO Pt calling, thinks she may have Monkeypox. See below for symptoms. She is able to do a VV. You may call her at her home number listed in contacts. Meds, allergies, and pharmacy are all up to date. Answer Assessment - Initial Assessment Questions 1. SYMPTOM: Has a rash on her back. The rash is not linear. It started with one spot and has spread to over 18 spots within 2 days.Pt thinks she may have Monkey Pox. 2. ONSET: 2 days ago. 3. RASH: States the rash is little red spots about the size of a tip of an erasure on a pencil. They are scattered over her back. They are not weeping, They are not itchy. Her friends told her it looks like the beginning of pimples. 4. FEVER: No temp but she was chilling. No chilling today. 5. PAIN: Denies pain but states they are uncomfortable. 6. MONKEYPOX EXPOSURE: Denies and no recent travel. 7. MONKEYPOX DATE of EXPOSURE: N/A. 8. MONKEYPOX VACCINE: N/A. + H/A, no swollen glands, no sob, + nausea. 10. : Denies. Protocols used: Monkeypox - Diagnosed or [id number] documented in this encounter [facility] 01-10-2022 History of Present illness Narrative ASSESSMENT/PLAN: 1. Type 2 diabetes mellitus without retinopathy (HCC) - ICD9: 250.00, ICD10: E11.9 (primary diagnosis) 2. [facility] current use of insulin (HCC) - ICD9: V58.67, ICD10: Z79.4 Risk of diabetic changes and vision loss can be minimized by tight control of blood sugar, blood pressure, and cholesterol levels. Continue care with primary care doctor and/or internal revenue agent to maintain optimum levels. Yearly dilated eye exams are recommended to monitor for any changes. If you have vision changes, call the office to be seen sooner. Letter sent to primary care provider/endocrinology. 3. Myopia of both eyes with astigmatism - ICD9: 367.1, 367.20, ICD10: H52.13, H52.203 Stable, monitor yearly New glasses optional Return to clinic: One year diabetes exam Ainsley Rojo, OD I have confirmed and edited as necessary the relevant HPI, ophthalmic history, ROS, and the neuro exam findings as obtained by others. I have seen and examined this patient. I have discussed the case and the management of this patient's care with the Resident/Fellow, if applicable. I also have reviewed and agree with the assessment and plan as stated above and agree with all of its relevant components. 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 [employer] Pt last seen on 11/01 by cardiology regarding dizziness Had tilt table which showed postural tachycardia Started on toprol xl 25 mg Hasn't noticed improvement in symptoms Wearing compression stockings Follows with endo for diabetes HgA1C 7.0 in September Mood On bupropion PDMP report reviewed Hasn't been taking the adderall or sertraline Mood overall is good Last 2 Encounter Wt Readings: Date: Wt: 12/27/2021 129.3 kg (285 lb) 11/01/2021 127.6 kg (281 lb 3.2 oz) Last 2 Encounter BP Readings: Date: BP: 12/27/2021 124/82 11/01/2021 140/80 Objective: BP 124/82 Pulse 76 Wt 129.3 kg (285 lb) LMP 08/03/2021 (Approximate) BMI 42.09 kg/m General appearance:Obese, well appearing, alert, in no acute distress and well-hydrated, well nourished Heart: regular rate and rhythm, without murmur Lungs: clear to auscultation, without rales or wheeze, good air exchange Ext: no edema in LE bilaterally Psych: Posture and motor behavior: normal posture and motor behavior Dress, grooming, personal hygiene: normal dress and grooming Facial expression: good eye contact Speech: normal speech Mood: euthymic ASSESSMENT/PLAN: 1. Anxiety and depression - ICD9: 300.00, 311, ICD10: F41.9, F32.A (primary diagnosis) - Continue bupropion 2. Dizziness - ICD9: 780.4, ICD10: R42 - Discussed compression stockings, adding salt and will try increasing metoprolo 3. Type 2 diabetes mellitus without retinopathy (HCC) - ICD9: 250.00, ICD10: E11.9 - Follows with endo Physical in 6 months Opal Malloy DO documented in this encounter [facility] 12-27-2021 Miscellaneous Notes Form signed. Form faxed with records. Confirmation received. Form sent for scanning. A form has been received from [facility] for CGM supplies. Placed for Esme Callejas CNP to fill out. Please fax with printed office notes and last CGM report when completed. documented in this encounter [facility] documented as of this encounter (statuses as of 12/27/2021) [facility] History of Past illness Narrative* Problem Noted Date Resolved Date Family history of colon canc er requiring screening colonoscopy 05/11/2020 05/11/2020 Polyp of sigmoid colon 05/11/2020 0 Counseling and coordination of care 01/05/2015 05/25/2015 Irregular periods 08/06/2013 08/18/2015 Rash 08/06/2013 08/06/2013 documented as of this encounter (statuses as of 12/27/2021) [facility] History of Past illness Narrative* Problem Noted Date Resolved Date Family history of colon canc er requiring screening colonoscopy 05/11/2020 05/11/2020 Polyp of sigmoid colon 05/11/2020 0 Counseling and coordination of care 01/05/2015 05/25/2015 Irregular periods 08/06/2013 08/18/2015 Rash 08/06/2013 08/06/2013 documented as of this encounter (statuses as of 01/10/2022) [facility] History of Past illness Narrative* Problem Noted Date Resolved Date Family history of colon canc er requiring screening colonoscopy 05/11/2020 05/11/2020 Polyp of sigmoid colon 05/11/2020 0 Counseling and coordination of care 01/05/2015 05/25/2015 Irregular periods 08/06/2013 08/18/2015 Rash 08/06/2013 08/06/2013 documented as of this encounter (statuses as of 05/26/2022) [place] [id number] History of Past illness Narrative* Problem Noted Date Resolved Date Family history of colon canc er requiring screening colonoscopy 05/11/2020 05/11/2020 Polyp of sigmoid colon 05/11/2020 0 Counseling and coordination of care 01/05/2015 05/25/2015 Irregular periods 08/06/2013 08/18/2015 Rash 08/06/2013 08/06/2013 documented as of this encounter (statuses as of 05/26/2022) [place] [id number] History of Past illness Narrative* Problem Noted Date Resolved Date Family history of colon canc er requiring screening colonoscopy 05/11/2020 05/11/2020 Polyp of sigmoid colon 05/11/2020 0 Counseling and coordination of care 01/05/2015 05/25/2015 Irregular periods 08/06/2013 08/18/2015 Rash 08/06/2013 08/06/2013 documented as of this encounter (statuses as of 06/29/2022) [place] [id number] History of Past illness Narrative* Problem Noted Date Resolved Date Family history of colon canc er requiring screening colonoscopy 05/11/2020 05/11/2020 Polyp of sigmoid colon 05/11/2020 0 Counseling and coordination of care 01/05/2015 05/25/2015 Irregular periods 08/06/2013 08/18/2015 Rash 08/06/2013 08/06/2013 documented as of this encounter (statuses as of 07/01/2022) [place] [id number] History of Past illness Narrative* Problem Noted Date Resolved Date Family history of colon canc er requiring screening colonoscopy 05/11/2020 05/11/2020 Polyp of sigmoid colon 05/11/2020 0 Counseling and coordination of care 01/05/2015 05/25/2015 Irregular periods 08/06/2013 08/18/2015 Rash 08/06/2013 08/06/2013 documented as of this encounter (statuses as of 07/12/2022) [place] [id number] History of Past illness Narrative* Problem Noted Date Resolved Date Family history of colon canc er requiring screening colonoscopy 05/11/2020 05/11/2020 Polyp of sigmoid colon 05/11/2020 0 Counseling and coordination of care 01/05/2015 05/25/2015 Irregular periods 08/06/2013 08/18/2015 Rash 08/06/2013 08/06/2013 documented as of this encounter (statuses as of 07/19/2022) [place] [id number] History of Past illness Narrative* Problem Noted Date Resolved Date Family history of colon canc er requiring screening colonoscopy 05/11/2020 05/11/2020 Polyp of sigmoid colon 05/11/2020 0 Counseling and coordination of care 01/05/2015 05/25/2015 Irregular periods 08/06/2013 08/18/2015 Rash 08/06/2013 08/06/2013 documented as of this encounter (statuses as of 08/04/2022) [place] [id number] History of Past illness Narrative* Problem Noted Date Resolved Date Family history of colon canc er requiring screening colonoscopy 05/11/2020 05/11/2020 Polyp of sigmoid colon 05/11/2020 0 Counseling and coordination of care 01/05/2015 05/25/2015 Irregular periods 08/06/2013 08/18/2015 Rash 08/06/2013 08/06/2013 documented as of this encounter (statuses as of 08/10/2022) [place] [id number] History of Past illness Narrative* Problem Noted Date Resolved Date Family history of colon canc er requiring screening colonoscopy 05/11/2020 05/11/2020 Polyp of sigmoid colon 05/11/2020 0 Counseling and coordination of care 01/05/2015 05/25/2015 Irregular periods 08/06/2013 08/18/2015 Rash 08/06/2013 08/06/2013 documented as of this encounter (statuses as of 08/31/2022) [place] [id number] History of Past illness Narrative* Problem Noted Date Resolved Date Family history of colon canc er requiring screening colonoscopy 05/11/2020 05/11/2020 Polyp of sigmoid colon 05/11/2020 0 Counseling and coordination of care 01/05/2015 05/25/2015 Irregular periods 08/06/2013 08/18/2015 Rash 08/06/2013 08/06/2013 documented as of this encounter (statuses as of 09/05/2022) [place] [id number] History of Past illness Narrative* Problem Noted Date Resolved Date Family history of colon canc er requiring screening colonoscopy 05/11/2020 05/11/2020 Polyp of sigmoid colon 05/11/2020 0 Counseling and coordination of care 01/05/2015 05/25/2015 Irregular periods 08/06/2013 08/18/2015 Rash 08/06/2013 08/06/2013 documented as of this encounter (statuses as of 10/21/2022) [address] History of Past illness Narrative* Problem Noted Date Resolved Date Family history of colon canc er requiring screening colonoscopy 05/11/2020 05/11/2020 Polyp of sigmoid colon 05/11/2020 0 Counseling and coordination of care 01/05/2015 05/25/2015 Irregular periods 08/06/2013 08/18/2015 Rash 08/06/2013 08/06/2013 documented as of this encounter (statuses as of 11/01/2022) [address] History of Past illness Narrative* Problem Noted Date Resolved Date Family history of colon canc er requiring screening colonoscopy 05/11/2020 05/11/2020 Polyp of sigmoid colon 05/11/2020 0 Counseling and coordination of care 01/05/2015 05/25/2015 Irregular periods 08/06/2013 08/18/2015 Rash 08/06/2013 08/06/2013 documented as of this encounter (statuses as of 11/01/2022) [address] History of Past illness Narrative* Problem Noted Date Resolved Date Family history of colon canc er requiring screening colonoscopy 05/11/2020 05/11/2020 Polyp of sigmoid colon 05/11/2020 0 Counseling and coordination of care 01/05/2015 05/25/2015 Irregular periods 08/06/2013 08/18/2015 Rash 08/06/2013 08/06/2013 documented as of this encounter (statuses as of 11/03/2022) [address] History of Past illness Narrative* Problem Noted Date Resolved Date Family history of colon canc er requiring screening colonoscopy 05/11/2020 05/11/2020 Polyp of sigmoid colon 05/11/2020 0 Counseling and coordination of care 01/05/2015 05/25/2015 Irregular periods 08/06/2013 08/18/2015 Rash 08/06/2013 08/06/2013 documented as of this encounter (statuses as of 11/04/2022) [place] [id number] History of Past illness Narrative* Problem Noted Date Resolved Date Family history of colon canc er requiring screening colonoscopy 05/11/2020 05/11/2020 Polyp of sigmoid colon 05/11/2020 0 Counseling and coordination of care 01/05/2015 05/25/2015 Irregular periods 08/06/2013 08/18/2015 Rash 08/06/2013 08/06/2013 documented as of this encounter (statuses as of 11/05/2022) [place] [id number] History of Past illness Narrative* Problem Noted Date Resolved Date Family history of colon canc er requiring screening colonoscopy 05/11/2020 05/11/2020 Polyp of sigmoid colon 05/11/2020 0 Counseling and coordination of care 01/05/2015 05/25/2015 Irregular periods 08/06/2013 08/18/2015 Rash 08/06/2013 08/06/2013 documented as of this encounter (statuses as of 11/28/2022) [place] [id number] History of Past illness Narrative* Problem Noted Date Resolved Date Family history of colon canc er requiring screening colonoscopy 05/11/2020 05/11/2020 Polyp of sigmoid colon 05/11/2020 0 Counseling and coordination of care 01/05/2015 05/25/2015 Irregular periods 08/06/2013 08/18/2015 Rash 08/06/2013 08/06/2013 documented as of this encounter (statuses as of 11/29/2022) [place] [id number] History of Past illness Narrative* Problem Noted Date Resolved Date Family history of colon canc er requiring screening colonoscopy 05/11/2020 05/11/2020 Polyp of sigmoid colon 05/11/2020 0 Counseling and coordination of care 01/05/2015 05/25/2015 Irregular periods 08/06/2013 08/18/2015 Rash 08/06/2013 08/06/2013 documented as of this encounter (statuses as of 12/02/2022) [place] [id number] History of Past illness Narrative* Problem Noted Date Resolved Date Family history of colon canc er requiring screening colonoscopy 05/11/2020 05/11/2020 Polyp of sigmoid colon 05/11/2020 0 Counseling and coordination of care 01/05/2015 05/25/2015 Irregular periods 08/06/2013 08/18/2015 Rash 08/06/2013 08/06/2013 documented as of this encounter (statuses as of 12/24/2022) [place] [id number] History of Past illness Narrative* Problem Noted Date Resolved Date Family history of colon canc er requiring screening colonoscopy 05/11/2020 05/11/2020 Polyp of sigmoid colon 05/11/2020 0 Counseling and coordination of care 01/05/2015 05/25/2015 Irregular periods 08/06/2013 08/18/2015 Rash 08/06/2013 08/06/2013 documented as of this encounter (statuses as of 01/02/2023) [place] [id number] History of Past illness Narrative* Problem Noted Date Resolved Date Family history of colon canc er requiring screening colonoscopy 05/11/2020 05/11/2020 Polyp of sigmoid colon 05/11/2020 0 Counseling and coordination of care 01/05/2015 05/25/2015 Irregular periods 08/06/2013 08/18/2015 Rash 08/06/2013 08/06/2013 documented as of this encounter (statuses as of 01/10/2023) [place] [id number] History of Past illness Narrative* Problem Noted Date Resolved Date Family history of colon canc er requiring screening colonoscopy 05/11/2020 05/11/2020 Polyp of sigmoid colon 05/11/2020 0 Counseling and coordination of care 01/05/2015 05/25/2015 Irregular periods 08/06/2013 08/18/2015 Rash 08/06/2013 08/06/2013 documented as of this encounter (statuses as of 01/31/2023) [address] History of Past illness Narrative* Problem Noted Date Resolved Date Family history of colon canc er requiring screening colonoscopy 05/11/2020 05/11/2020 Polyp of sigmoid colon 05/11/2020 0 Counseling and coordination of care 01/05/2015 05/25/2015 Irregular periods 08/06/2013 08/18/2015 Rash 08/06/2013 08/06/2013 documented as of this encounter (statuses as of 02/01/2023) [place] [id number] History of Past illness Narrative* Problem Noted Date Resolved Date Family history of colon canc er requiring screening colonoscopy 05/11/2020 05/11/2020 Polyp of sigmoid colon 05/11/2020 0 Counseling and coordination of care 01/05/2015 05/25/2015 Irregular periods 08/06/2013 08/18/2015 Rash 08/06/2013 08/06/2013 documented as of this encounter (statuses as of 02/02/2023) [place] [id number] History of Past illness Narrative* Problem Noted Date Resolved Date Family history of colon canc er requiring screening colonoscopy 05/11/2020 05/11/2020 Polyp of sigmoid colon 05/11/2020 0 Counseling and coordination of care 01/05/2015 05/25/2015 Irregular periods 08/06/2013 08/18/2015 Rash 08/06/2013 08/06/2013 documented as of this encounter (statuses as of 02/07/2023) [place] [id number] History of Past illness Narrative* Problem Noted Date Resolved Date Family history of colon canc er requiring screening colonoscopy 05/11/2020 05/11/2020 Polyp of sigmoid colon 05/11/2020 0 Counseling and coordination of care 01/05/2015 05/25/2015 Irregular periods 08/06/2013 08/18/2015 Rash 08/06/2013 08/06/2013 documented as of this encounter (statuses as of 02/08/2023) [place] [id number] History of Past illness Narrative* Problem Noted Date Resolved Date Family history of colon canc er requiring screening colonoscopy 05/11/2020 05/11/2020 Polyp of sigmoid colon 05/11/2020 0 Counseling and coordination of care 01/05/2015 05/25/2015 Irregular periods 08/06/2013 08/18/2015 Rash 08/06/2013 08/06/2013 documented as of this encounter (statuses as of 02/28/2023) [place] [id number] History of Past illness Narrative* Problem Noted Date Resolved Date Family history of colon canc er requiring screening colonoscopy 05/11/2020 05/11/2020 Polyp of sigmoid colon 05/11/2020 0 Counseling and coordination of care 01/05/2015 05/25/2015 Irregular periods 08/06/2013 08/18/2015 Rash 08/06/2013 08/06/2013 documented as of this encounter (statuses as of 03/02/2023) [address]-2020 History of Past illness Narrative* Problem Noted Date Resolved Date Family history of colon canc er requiring screening colonoscopy 05/11/2020 05/11/2020 Polyp of sigmoid colon 05/11/2020 0 Counseling and coordination of care 01/05/2015 05/25/2015 Irregular periods 08/06/2013 08/18/2015 Rash 08/06/2013 08/06/2013 documented as of this encounter (statuses as of 03/03/2023) [address]2020 History of Past illness Narrative* Problem Noted Date Resolved Date Family history of colon canc er requiring screening colonoscopy 05/11/2020 05/11/2020 Polyp of sigmoid colon 05/11/2020 0 Counseling and coordination of care 01/05/2015 05/25/2015 Irregular periods 08/06/2013 08/18/2015 Rash 08/06/2013 08/06/2013 documented as of this encounter (statuses as of 03/08/2023) [address]-2020 History of Past illness Narrative* Problem Noted Date Resolved Date Family history of colon canc er requiring screening colonoscopy 05/11/2020 05/11/2020 Polyp of sigmoid colon 05/11/2020 0 Counseling and coordination of care 01/05/2015 05/25/2015 Irregular periods 08/06/2013 08/18/2015 Rash 08/06/2013 08/06/2013 documented as of this encounter (statuses as of 03/15/2023) [address]2020 History of Past illness Narrative* Problem Noted Date Resolved Date Family history of colon canc er requiring screening colonoscopy 05/11/2020 05/11/2020 Polyp of sigmoid colon 05/11/2020 0 Counseling and coordination of care 01/05/2015 05/25/2015 Irregular periods 08/06/2013 08/18/2015 Rash 08/06/2013 08/06/2013 documented as of this encounter (statuses as of 03/16/2023) [place] [id number] History of Past illness Narrative* Problem Noted Date Resolved Date Family history of colon canc er requiring screening colonoscopy 05/11/2020 05/11/2020 Polyp of sigmoid colon 05/11/2020 0 Counseling and coordination of care 01/05/2015 05/25/2015 Irregular periods 08/06/2013 08/18/2015 Rash 08/06/2013 08/06/2013 documented as of this encounter (statuses as of 03/20/2023) [address]2020 History of Past illness Narrative* Problem Noted Date Resolved Date Family history of colon canc er requiring screening colonoscopy 05/11/2020 05/11/2020 Polyp of sigmoid colon 05/11/2020 0 Counseling and coordination of care 01/05/2015 05/25/2015 Irregular periods 08/06/2013 08/18/2015 Rash 08/06/2013 08/06/2013 documented as of this encounter (statuses as of 03/24/2023) [place] [id number] History of Past illness Narrative* Problem Noted Date Resolved Date Family history of colon canc er requiring screening colonoscopy 05/11/2020 05/11/2020 Polyp of sigmoid colon 05/11/2020 0 Counseling and coordination of care 01/05/2015 05/25/2015 Irregular periods 08/06/2013 08/18/2015 Rash 08/06/2013 08/06/2013 documented as of this encounter (statuses as of 03/24/2023) [address] History of Past illness Narrative* Problem Noted Date Diagnosed Date Resolved Date Family history of colon canc er requiring screening colonoscopy 05/11/2020 05/11/2020 Polyp of sigmoid colon 05/11/202005/11 Counseling and coordination of care 01/05/2015 05/25/2015 Irregular periods 08/06/2013 08/18/2015 Rash 08/06/2013 08/06/2013 documented as of this encounter (statuses as of 04/09/2023) [address]2020 History of Past illness Narrative* Problem Noted Date Diagnosed Date Resolved Date Family history of colon canc er requiring screening colonoscopy 05/11/2020 05/11/2020 Polyp of sigmoid colon 05/11/202005/11 Counseling and coordination of care 01/05/2015 05/25/2015 Irregular periods 08/06/2013 08/18/2015 Rash 08/06/2013 08/06/2013 documented as of this encounter (statuses as of 04/18/2023) [address] History of Past illness Narrative* Problem Noted Date Diagnosed Date Resolved Date Family history of colon canc er requiring screening colonoscopy 05/11/2020 05/11/2020 Polyp of sigmoid colon 05/11/202005/11 Counseling and coordination of care 01/05/2015 05/25/2015 Irregular periods 08/06/2013 08/18/2015 Rash 08/06/2013 08/06/2013 documented as of this encounter (statuses as of 04/18/2023) [address] History of Past illness Narrative* Problem Noted Date Diagnosed Date Resolved Date Family history of colon canc er requiring screening colonoscopy 05/11/2020 05/11/2020 Polyp of sigmoid colon 05/11/202005/11 Counseling and coordination of care 01/05/2015 05/25/2015 Irregular periods 08/06/2013 08/18/2015 Rash 08/06/2013 08/06/2013 documented as of this encounter (statuses as of 05/09/2023) [address] History of Past illness Narrative* Problem Noted Date Diagnosed Date Resolved Date Family history of colon canc er requiring screening colonoscopy 05/11/2020 05/11/2020 Polyp of sigmoid colon 05/11/202005/11 Counseling and coordination of care 01/05/2015 05/25/2015 Irregular periods 08/06/2013 08/18/2015 Rash 08/06/2013 08/06/2013 documented as of this encounter (statuses as of 05/11/2023) [place] [id number] History of Past illness Narrative* Problem Noted Date Diagnosed Date Resolved Date Family history of colon canc er requiring screening colonoscopy 05/11/2020 05/11/2020 Polyp of sigmoid colon 05/11/202005/11 Counseling and coordination of care 01/05/2015 05/25/2015 Irregular periods 08/06/2013 08/18/2015 Rash 08/06/2013 08/06/2013 documented as of this encounter (statuses as of 06/15/2023) [place] [id number] History of Past illness Narrative* Problem Noted Date Diagnosed Date Resolved Date Family history of colon canc er requiring screening colonoscopy 05/11/2020 05/11/2020 Polyp of sigmoid colon 05/11/202005/11 Counseling and coordination of care 01/05/2015 05/25/2015 Irregular periods 08/06/2013 08/18/2015 Rash 08/06/2013 08/06/2013 documented as of this encounter (statuses as of 07/07/2023) [place] [id number] History of Past illness Narrative* Problem Noted Date Diagnosed Date Resolved Date Family history of colon canc er requiring screening colonoscopy 05/11/2020 05/11/2020 Polyp of sigmoid colon 05/11/202005/11 Counseling and coordination of care 01/05/2015 05/25/2015 Irregular periods 08/06/2013 08/18/2015 Rash 08/06/2013 08/06/2013 documented as of this encounter (statuses as of 07/08/2023) [place] [address] History of Past illness Narrative* Problem Noted Date Diagnosed Date Resolved Date Family history of colon canc er requiring screening colonoscopy 05/11/2020 05/11/2020 Polyp of sigmoid colon 05/11/202005/11 Counseling and coordination of care 01/05/2015 05/25/2015 Irregular periods 08/06/2013 08/18/2015 Rash 08/06/2013 08/06/2013 documented as of this encounter (statuses as of 07/31/2023) [place] [address] History of Past illness Narrative* Problem Noted Date Diagnosed Date Resolved Date Family history of colon canc er requiring screening colonoscopy 05/11/2020 05/11/2020 Polyp of sigmoid colon 05/11/202005/11 Counseling and coordination of care 01/05/2015 05/25/2015 Irregular periods 08/06/2013 08/18/2015 Rash 08/06/2013 08/06/2013 documented as of this encounter (statuses as of 08/02/2023) [place] [address] History of Past illness Narrative* Problem Noted Date Diagnosed Date Resolved Date Family history of colon canc er requiring screening colonoscopy 05/11/2020 05/11/2020 Polyp of sigmoid colon 05/11/202005/11 Counseling and coordination of care 01/05/2015 05/25/2015 Irregular periods 08/06/2013 08/18/2015 Rash 08/06/2013 08/06/2013 documented as of this encounter (statuses as of 08/06/2023) [place] [address] History of Past illness Narrative* Problem Noted Date Diagnosed Date Resolved Date Family history of colon canc er requiring screening colonoscopy 05/11/2020 05/11/2020 Polyp of sigmoid colon 05/11/202005/11 Counseling and coordination of care 01/05/2015 05/25/2015 Irregular periods 08/06/2013 08/18/2015 Rash 08/06/2013 08/06/2013 documented as of this encounter (statuses as of 08/06/2023) [place] [address] History of Past illness Narrative* Problem Noted Date Diagnosed Date Resolved Date Family history of colon canc er requiring screening colonoscopy 05/11/2020 05/11/2020 Polyp of sigmoid colon 05/11/202005/11 Counseling and coordination of care 01/05/2015 05/25/2015 Irregular periods 08/06/2013 08/18/2015 Rash 08/06/2013 08/06/2013 documented as of this encounter (statuses as of 08/10/2023) [place] [address] History of Past illness Narrative* Problem Noted Date Diagnosed Date Resolved Date Family history of colon canc er requiring screening colonoscopy 05/11/2020 05/11/2020 Polyp of sigmoid colon 05/11/202005/11 Counseling and coordination of care 01/05/2015 05/25/2015 Irregular periods 08/06/2013 08/18/2015 Rash 08/06/2013 08/06/2013 documented as of this encounter (statuses as of 08/10/2023) [place] [address] History of Past illness Narrative* Problem Noted Date Diagnosed Date Resolved Date Family history of colon canc er requiring screening colonoscopy 05/11/2020 05/11/2020 Polyp of sigmoid colon 05/11/202005/11 Counseling and coordination of care 01/05/2015 05/25/2015 Irregular periods 08/06/2013 08/18/2015 Rash 08/06/2013 08/06/2013 documented as of this encounter (statuses as of 08/11/2023) [facility]08-10-2020 History of Past illness Narrative* Problem Noted Date Diagnosed Date Resolved Date Family history of colon canc er requiring screening colonoscopy 05/11/2020 05/11/2020 Polyp of sigmoid colon 05/11/202005/11 Counseling and coordination of care 01/05/2015 05/25/2015 Irregular periods 08/06/2013 08/18/2015 Rash 08/06/2013 08/06/2013 documented as of this encounter (statuses as of 08/29/2023) [facility]08-10-2020 History of Past illness Narrative* Problem Noted Date Diagnosed Date Resolved Date Family history of colon canc er requiring screening colonoscopy 05/11/2020 05/11/2020 Polyp of sigmoid colon 05/11/202005/11 Counseling and coordination of care 01/05/2015 05/25/2015 Irregular periods 08/06/2013 08/18/2015 Rash 08/06/2013 08/06/2013 documented as of this encounter (statuses as of 09/22/2023) [facility] Diagnosis Anxiety and depression- Primary Dysthymic disorder Dizziness Dizziness and giddiness Type 2 diabetes mellitus without retinopathy ([facility]) Type II or unspecified type diabetes mellitus without mention of complication, not stated as uncontrolled [facility] Diagnosis Type 2 diabetes mellitus without retinopathy (HCC)- Primary Type II or unspecified type diabetes mellitus without mention of complication, not stated as uncontrolled roasterman current use of insulin ([facility]) Encounter for long-term (current) use of insulin Myopia of both eyes with astigmatism [facility] Skin lesions- Primary [facility] Diagnosis Well adult exam- Primary Routine general medical examination at a health care facility Encounter for immunization Need for other specified prophylactic vaccination against single bacterial disease Chondromalacia, knee, right Dizziness Dizziness and giddiness Severe obesity (BMI >= 40) ([facility]) Morbid obesity JONATHAN (generalized anxiety disorder) Generalized anxiety disorder Current moderate episode of major depressive disorder, unspecified whether recurrent ([facility]) Type 2 diabetes mellitus with hyperglycemia, with long-term current use of insulin ([facility]) [facility] Diagnosis Type 2 diabetes mellitus without complication, with long-term current use of insulin ([facility])- Primary Mixed hyperlipidemia Obesity, Class III, BMI 40-49.9 (morbid obesity) (HCC) Morbid obesity [facility]* Diagnosis New daily persistent headache- Primary [facility]* Diagnosis Menorrhagia with regular cycle- Primary Excessive or frequent menstruation Complex cyst of left ovary [facility] Diagnosis JONATHAN (generalized anxiety disorder)- Primary Generalized anxiety disorder Current moderate episode of major depressive disorder, unspecified whether recurrent ([facility]) Attention deficit disorder (ADD) without hyperactivity Headaches [facility]* Diagnosis Cyst of ovary, unspecified laterality- Primary [facility]* Diagnosis Type 2 diabetes mellitus without complication, with long-term current use of insulin ([facility])- Primary Mixed hyperlipidemia Obesity, Class III, BMI 40-49.9 (morbid obesity) ([facility]) Morbid obesity [facility] Diagnosis Complex ovarian cyst Other and unspecified ovarian cyst documented [facility] this [facility]* Diagnosis Attention deficit disorder (ADD) without hyperactivity [facility] Diagnosis Diabetes mellitus due to underlying condition with hyperosmolarity without coma, unspecified whether intermediate insulin use ([facility]) [facility]* Diagnosis JONATHAN (generalized anxiety disorder)- Primary Generalized anxiety disorder Attention deficit disorder (ADD) without hyperactivity Moderate episode of recurrent major depressive disorder ([facility]) Type 2 diabetes mellitus without retinopathy (HCC) Type II or unspecified type diabetes mellitus without mention of complication, not stated as uncontrolled Severe obesity (BMI >= 40) ([facility]) Morbid obesity [facility]* Diagnosis Type 2 diabetes mellitus without retinopathy ([facility])- Primary Type II or unspecified type diabetes mellitus without mention of complication, not stated as uncontrolled [facility] current use of insulin ([facility]) Encounter for long-term (current) use of insulin Myopia of both eyes with astigmatism and presbyopia [facility] Diagnosis Inappropriate sinus tachycardia- Primary Other specified cardiac dysrhythmias Palpitations [facility] (obstructive sleep apnea) Obstructive sleep apnea (adult) (pediatric) Type 2 diabetes mellitus without retinopathy ([facility]) Type II or unspecified type diabetes mellitus without mention of complication, not stated as uncontrolled Hypomagnesemia Disorders of magnesium metabolism Dizziness Dizziness and giddiness Hyperlipidemia LDL goal <70 Other and unspecified hyperlipidemia [facility]* Diagnosis Hyperlipidemia LDL goal <70- Primary Other and unspecified hyperlipidemia Hypomagnesemia Disorders of magnesium metabolism [facility] Diagnosis Type 2 diabetes mellitus with hyperglycemia, with long-term current use of insulin ([facility])- Primary Mixed hyperlipidemia Obesity, Class III, BMI 40-49.9 (morbid obesity) (HCC) Morbid obesity [facility]* Diagnosis Headaches- Primary Inappropriate sinus tachycardia Other specified cardiac dysrhythmias documented [facility]* Diagnosis Diabetes mellitus due to underlying condition with hyperosmolarity without coma, unspecified whether intermediate insulin use ([facility]) [facility] Diagnosis Type 2 diabetes mellitus with hyperglycemia, with long-term current use of insulin ([facility])- Primary [facility]* Diagnosis Type 2 diabetes mellitus without retinopathy (HCC)- Primary Type II or unspecified type diabetes mellitus without mention of complication, not stated as uncontrolled [facility]* Diagnosis Type 2 diabetes mellitus without retinopathy (HCC)- Primary Type II or unspecified type diabetes mellitus without mention of complication, not stated as uncontrolled [facility] Diagnosis Abnormal sensation of upper extremity- Primary Disturbance of skin sensation Attention deficit disorder (ADD) without hyperactivity Allodynia Disturbance of skin sensation [facility] Diagnosis JONATHAN (generalized anxiety disorder) Generalized anxiety disorder Current moderate episode of major depressive disorder, unspecified whether recurrent ([facility]) documented in this encounter [facility] note* Diagnosis Pain in extremity, unspecified extremity [M79.609]- Primary Abnormal sensation of upper extremity Disturbance of skin sensation Neuropathy Mononeuritis of unspecified site [facility]* Diagnosis Type 2 diabetes mellitus with hyperglycemia, with long-term current use of insulin ([facility])- Primary Mixed hyperlipidemia Obesity, Class III, BMI 40-49.9 (morbid obesity) (HCC) Morbid obesity [facility]* Diagnosis KAISER (obstructive sleep apnea)- Primary Obstructive sleep apnea (adult) (pediatric) Chest discomfort Other chest pain Dizziness Dizziness and giddiness Severe obesity (BMI >= 40) (HCC) Morbid obesity Tachycardia Tachycardia, unspecified Inappropriate sinus tachycardia Other specified cardiac dysrhythmias documented in this encounter [facility] note* Diagnosis Hyperlipidemia LDL goal <70 Other and unspecified hyperlipidemia documented in this encounter [facility] note* Diagnosis Tachycardia- Primary Tachycardia, unspecified [facility] Diagnosis New daily persistent headache documented in this encounter [facility] note* Diagnosis Acute pain of right knee [facility]* Diagnosis KAISER (obstructive sleep apnea)- Primary Obstructive sleep apnea (adult) (pediatric) documented in this encounter [facility] note* Diagnosis Dizziness- Primary Dizziness and giddiness Tachycardia Tachycardia, unspecified [facility]* Diagnosis Palpitations- Primary [facility]* Diagnosis Plantar fasciitis- Primary Plantar fascial fibromatosis Foot pain, right Pain in limb Gastrocnemius equinus of right lower extremity documented in this encounter [facility] note* Diagnosis Snoring- Primary Other dyspnea and respiratory abnormality documented in this encounter [facility] for referral (narrative)* Diagnostic Procedure Only (Routine) - Pending Review Specialty Diagnoses / Procedures Referred By Ramsey curiel Referred To Contact [facility] Diagnoses Cyst of ovary, unspecified laterality Procedures PELVIC US WHI US PELVIC NONOBSTETRIC REAL[place] [address] [place] [address] [address] Referral ID Status Reason Start Date Expiration Date Visits Requested Visits Authorized [id number] Pending Review Auto-Generat ed Referral 2 08/27/2023 1 1 [facility] for referral (narrative)* Outpatient Procedure (Routine) - Authorized Specialty Diagnoses / Procedures Referred By Ramsey curiel Referred To [facility] Diagnoses Inappropriate sinus tachycardia Palpitations Procedures ECG COMPLETE ECG ROUTINE ECG W/LEAST 12 LDS W/I&R Sabine Tillman, FORD.FACILITIES ADMINISTRATOR [address] [place] [address] [address] Referral ID Status Reason Start Date Expiration Date Visits Requested Visits Authorized [id number] Authorized Auto-Generat ed Referral 01/02/2023 01/02/2024 1 1 [facility] for referral (narrative)* Outpatient Procedure (Routine) - Authorized Specialty Diagnoses / Procedures [facility] Referred To Contact [facility] Diagnoses Tachycardia Procedures ECG COMPLETE ECG ROUTINE ECG W/LEAST 12 LDS W/I&R Piyush Vital MD [address] [place] [address] [address] Referral ID Status Reason Start Date Expiration Date Visits Requested Visits Authorized [id number] Authorized Auto-Generat ed Referral 08/02/2023 08/01/2024 1 1 T [facility] for referral (narrative)* Diagnostic Procedure Only (Urgent) - Closed Specialty Diagnoses / Procedures [facility] XR [facility]AG[facility] Diagnoses Acute pain of right knee Procedures XR KNEE GENERAL 4V AP BOTH/PA BOTH/LAT/MERC RIGHT KNEE AP-WGT/LAT/MERCGIANFRANCOT Tabatha Hogan APRN.CNP [address] [place] [address] [place] [address] Referral ID Status Reason Start Date Expiration Date V isits Requested Visits Authorized [id number] Closed Auto-Generate d Referral 10/03/2021 11/02/2022 1 1 [facility] for referral (narrative)* Diagnostic Procedure Only (Routine) - Authorized Specialty Diagnoses / Procedures [facility] Diagnoses [facility] (obstructive sleep apnea) Procedures HOME SLEEP APNEA TEST (HSAT) SLEEP STD AIRFLOW HRT RATE&O2 SAT EFFORT Gisselle Rice PA-C [address] [place] [address] [address] Referral ID Status Reason Start Date Expiration Date Visits Requested Visits Authorized [id number] Authorized Auto-Generat ed Referral 08/09/2023 08/08/2024 1 1 [facility] for visit Narrative* Diagnostic Procedure Only (Routine) - Closed Specialty Diagnoses / Procedures Referred By Contac t Referred To Contact [facility] Diagnoses Menorrhagia with regular cycle Procedures PELVIC US [facility] US PELVIC NONOBSTETRIC REAL[place] [address] [place] [address] [address] Referral ID Status Reason Start Date Expiration Date V isits Requested Visits Authorized [id number] Closed Auto-Generate d Referral 05/20/2022 05/20/2023 1 1 [facility] for visit Narrative* Diagnostic Procedure Only (Routine) - Closed Specialty Diagnoses / Procedures Referred By Contac t Referred To Contact [facility] Diagnoses Cyst of ovary, unspecified laterality Procedures PELVIC US [facility] US PELVIC NONOBSTETRIC REAL[place] [address] [place] [address] [address] [place] [address] Referral ID Status Reason Start Date Expiration Date V isits Requested Visits Authorized [id number] Closed Auto-Generate d Referral 08/27/2022 08/27/2023 1 1 [facility] for visit Narrative* Outpatient Procedure (Routine) - Closed Specialty Diagnoses / Procedures Referred By Contac t Referred To Contact [facility] Diagnoses Abnormal sensation of upper extremity Neuropathy Procedures EMG(NEURO/NI) NERVE CONDUCTION STUDIES 9-10 STUDIES Kathy Franco PA-C [address] [place] [address] [facility] [place] [address] [place] [id number] Referral ID Status Reason Start Date Expiration Date V isits Requested Visits Authorized [id number] Closed Auto-Generate d Referral 04/25/2023 04/25/2024 1 1 [facility] for visit Narrative* Diagnostic Procedure Only (Urgent) - Closed Specialty Diagnoses / Procedures Referred By Ramsey curiel Referred To Contact XR IMAGING Diagnoses Acute pain of right knee Procedures XR KNEE GENERAL 4V AP BOTH/PA BOTH/LAT/MERC RIGHT KNEE AP-WGT/LAT/MERCHANT Tabatha Hogan, SCRUMMASTER.FACILITIES ADMINISTRATOR [address] [place] [address] [place] [address] Referral ID Status Reason Start Date Expiration Date V isits Requested Visits Authorized [id number] Closed Auto-Generate d Referral 10/03/2021 11/02/2022 1 1 [facility] Summary Purpose Family History No Family History Records FoundNo Family History Records FoundNo Family History Records Found Advance Directives No Advanced Directives Records FoundDocuments on File 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 Advance Directive(s) 05/11/2020 6:50 AM Reason for Referral Specialty Diagnoses / Procedures Referred By Ramsey curiel Referred To Contact [facility] Diagnoses Chondromalacia, knee, right Procedures CONSULT TO PHYSICAL THERAPY PHYSICAL THERAPY EVALUATION HIGH COMPLEX [address] [place] [address] [place] [address] [facility] [address] [address] Referral ID Status Reason Start Date Expiration Date Visits Requested Visits Authorized [id number] Pending Review Auto-Generat ed Referral 06/29/2022 06/29/2023 1 1 Specialty Diagnoses / Procedures Referred By Ramsey curiel Referred To Contact MR IMAGING Diagnoses New daily persistent headache Procedures MRI BRAIN WO/W IVCON MRI BRAIN BRAIN STEM W/O W/[place] [address] [place] [address] [facility] Referral ID Status Reason Start Date Expiration Date Visits Requested Visits Authorized [id number] Pending Review Auto-Generat ed Referral 08/17/2023 1 1 Specialty Diagnoses / Procedures Referred By Contac t Referred To Contact Diagnoses Type 2 diabetes mellitus with hyperglycemia, with long-term current use of insulin (HCC) Procedures CONSULT TO DIABETES EDUCATION DSME/MNT MEDICAL NUTRITION ASSMT&IVNTJ INDIV EACH 15 [place] MEDICAL NUTRITION ASSMT&IVNTJ INDIV EACH 15 [place] MEDICAL NUTRITION ASSMT&IVNTJ INDIV EACH [place] MEDICAL NUTRITION ASSMT&IVNTJ INDIV EACH [place] Esme Callejas, SCRUMMASTER.FACILITIES ADMINISTRATOR [address] [place] [address] Referral ID Status Reason Start Date Expiration Date Visits Requested Visits Authorized [id number] Authorized PCP Requested Referral 02/28/2023 02/28/2024 1 1 Specialty Diagnoses / Procedures Referred By Contac t Referred To Contact Neurology Diagnoses Abnormal sensation of upper extremity Allodynia Procedures CONSULT TO NEUROLOGY OFFICE/OUTPATIENT NEW HIGH MDM 60-[place] [address] [place] [address] Referral ID Status Reason Start Date Expiration Date Visits Requested Visits Authorized [id number] Authorized PCP Requested Referral 03/16/2023 03/15/2024 1 1 Specialty Diagnoses / Procedures Referred By Contac t Referred To Contact MR IMAGING Diagnoses New daily persistent headache Procedures MRI BRAIN WO/W IVCON MRI BRAIN BRAIN STEM W/O W/[place] [address] [place] [address] [place] [address] Referral ID Status Reason Start Date Expiration Date V isits Requested Visits Authorized [id number] Closed Auto-Generate d Referral 08/10/2022 09/08/2022 1 1 Specialty Diagnoses / Procedures Referred By Contac t Referred To Contact [facility] Diagnoses Plantar fasciitis Procedures CONSULT TO PHYSICAL THERAPY PHYSICAL THERAPY EVALUATION HIGH COMPLEX 45 MINS Ruba Gonzalez, SCRUMMASTER.FACILITIES ADMINISTRATOR [address] [place] [address] [facility] [place] [address] [place] [address] Referral ID Status Reason Start Date Expiration Date Visits Requested Visits Authorized [id number] Authorized Auto-Generat ed Referral 10/02/2022 10/01/2023 20 20 Specialty Diagnoses / Procedures Referred By Contac t Referred To Contact Diagnoses Snoring Procedures CONSULT TO SLEEP MEDICINE - ADULT OFFICE/OUTPATIENT NEW HIGH MDM 60-74 MINUTES Gisselle Sprague PA-C [address] [place] [address] Referral ID Status Reason Start Date Expiration Date Visits Requested Visits Authorized [id number] Authorized PCP Requested Referral 3 09/20/2024 1 1 Additional Source Comments INFORMATION SOURCE (unrecogn ized section and content) DATE CREATED AUTHOR AUTHOR'S ORGANIZ ATION 08/03/2023 [facility] DATE CREATED AUTHOR AUTHOR'S ORGANIZ ATION 10/10/2023 [facility] Source Comments (unrecognize d section and content) In the event this informatio n is protected by the Federal Confidentiality of Alcohol and Drug Abuse Patient Records regulations: The Federal rules restrict any use of the information to criminally investigate or prosecute any alcohol or drug abuse patient.[facility] [place] the event this information is protected by the Federal Confidentiality of Alcohol and Drug Abuse Patient Records regulations: The Federal rules restrict any use of the information to criminally investigate or prosecute any alcohol or drug abuse patient.[facility] [place] the event this information is protected by the Federal Confidentiality of Alcohol and Drug Abuse Patient Records regulations: The Federal rules restrict any use of the information to criminally investigate or prosecute any alcohol or drug abuse patient.[facility] the event this information is protected by the Federal Confidentiality of Alcohol and Drug Abuse Patient Records regulations: The Federal rules restrict any use of the information to criminally investigate or prosecute any alcohol or drug abuse patient.[facility] the event this information is protected by the Federal Confidentiality of Alcohol and Drug Abuse Patient Records regulations: The Federal rules restrict any use of the information to criminally investigate or prosecute any alcohol or drug abuse patient.[facility] [place] the event this information is protected by the Federal Confidentiality of Alcohol and Drug Abuse Patient Records regulations: The Federal rules restrict any use of the information to criminally investigate or prosecute any alcohol or drug abuse patient.[facility]In the event this information is protected by the Federal Confidentiality of Alcohol and Drug Abuse Patient Records regulations: The Federal rules restrict any use of the information to criminally investigate or prosecute any alcohol or drug abuse patient.[facility]In the event this information is protected by the Federal Confidentiality of Alcohol and Drug Abuse Patient Records regulations: The Federal rules restrict any use of the information to criminally investigate or prosecute any alcohol or drug abuse patient.[facility] [place]In the event this information is protected by the Federal Confidentiality of Alcohol and Drug Abuse Patient Records regulations: The Federal rules restrict any use of the information to criminally investigate or prosecute any alcohol or drug abuse patient.[facility]In the event this information is protected by the Federal Confidentiality of Alcohol and Drug Abuse Patient Records regulations: The Federal rules restrict any use of the information to criminally investigate or prosecute any alcohol or drug abuse patient.[facility]In the event this information is protected by the Federal Confidentiality of Alcohol and Drug Abuse Patient Records regulations: The Federal rules restrict any use of the information to criminally investigate or prosecute any alcohol or drug abuse patient.[facility]In the event this information is protected by the Federal Confidentiality of Alcohol and Drug Abuse Patient Records regulations: The Federal rules restrict any use of the information to criminally investigate or prosecute any alcohol or drug abuse patient.[facility] [place]In the event this information is protected by the Federal Confidentiality of Alcohol and Drug Abuse Patient Records regulations: The Federal rules restrict any use of the information to criminally investigate or prosecute any alcohol or drug abuse patient.[facility] [place]In the event this information is protected by the Federal Confidentiality of Alcohol and Drug Abuse Patient Records regulations: The Federal rules restrict any use of the information to criminally investigate or prosecute any alcohol or drug abuse patient.[facility] [place]In the event this information is protected by the Federal Confidentiality of Alcohol and Drug Abuse Patient Records regulations: The Federal rules restrict any use of the information to criminally investigate or prosecute any alcohol or drug abuse patient.[facility]In the event this information is protected by the Federal Confidentiality of Alcohol and Drug Abuse Patient Records regulations: The Federal rules restrict any use of the information to criminally investigate or prosecute any alcohol or drug abuse patient.[facility]In the event this information is protected by the Federal Confidentiality of Alcohol and Drug Abuse Patient Records regulations: The Federal rules restrict any use of the information to criminally investigate or prosecute any alcohol or drug abuse patient.[facility]In the event this information is protected by the Federal Confidentiality of Alcohol and Drug Abuse Patient Records regulations: The Federal rules restrict any use of the information to criminally investigate or prosecute any alcohol or drug abuse patient.[facility] OhioIn the event this information is protected by the Federal Confidentiality of Alcohol and Drug Abuse Patient Records regulations: The Federal rules restrict any use of the information to criminally investigate or prosecute any alcohol or drug abuse patient.[facility] [place]In the event this information is protected by the Federal Confidentiality of Alcohol and Drug Abuse Patient Records regulations: The Federal rules restrict any use of the information to criminally investigate or prosecute any alcohol or drug abuse patient.[facility]In the event this information is protected by the Federal Confidentiality of Alcohol and Drug Abuse Patient Records regulations: The Federal rules restrict any use of the information to criminally investigate or prosecute any alcohol or drug abuse patient.[facility] [place]In the event this information is protected by the Federal Confidentiality of Alcohol and Drug Abuse Patient Records regulations: The Federal rules restrict any use of the information to criminally investigate or prosecute any alcohol or drug abuse patient.[facility] [place]In the event this information is protected by the Federal Confidentiality of Alcohol and Drug Abuse Patient Records regulations: The Federal rules restrict any use of the information to criminally investigate or prosecute any alcohol or drug abuse patient.[facility] [place]In the event this information is protected by the Federal Confidentiality of Alcohol and Drug Abuse Patient Records regulations: The Federal rules restrict any use of the information to criminally investigate or prosecute any alcohol or drug abuse patient.[facility] [place]In the event this information is protected by the Federal Confidentiality of Alcohol and Drug Abuse Patient Records regulations: The Federal rules restrict any use of the information to criminally investigate or prosecute any alcohol or drug abuse patient.[facility]In the event this information is protected by the Federal Confidentiality of Alcohol and Drug Abuse Patient Records regulations: The Federal rules restrict any use of the information to criminally investigate or prosecute any alcohol or drug abuse patient.[facility] [place]In the event this information is protected by the Federal Confidentiality of Alcohol and Drug Abuse Patient Records regulations: The Federal rules restrict any use of the information to criminally investigate or prosecute any alcohol or drug abuse patient.[facility] [place]In the event this information is protected by the Federal Confidentiality of Alcohol and Drug Abuse Patient Records regulations: The Federal rules restrict any use of the information to criminally investigate or prosecute any alcohol or drug abuse patient.[facility] [place]In the event this information is protected by the Federal Confidentiality of Alcohol and Drug Abuse Patient Records regulations: The Federal rules restrict any use of the information to criminally investigate or prosecute any alcohol or drug abuse patient.[facility] [place]In the event this information is protected by the Federal Confidentiality of Alcohol and Drug Abuse Patient Records regulations: The Federal rules restrict any use of the information to criminally investigate or prosecute any alcohol or drug abuse patient.[facility] [place]In the event this information is protected by the Federal Confidentiality of Alcohol and Drug Abuse Patient Records regulations: The Federal rules restrict any use of the information to criminally investigate or prosecute any alcohol or drug abuse patient.[facility] [place]In the event this information is protected by the Federal Confidentiality of Alcohol and Drug Abuse Patient Records regulations: The Federal rules restrict any use of the information to criminally investigate or prosecute any alcohol or drug abuse patient.[facility] [place]In the event this information is protected by the Federal Confidentiality of Alcohol and Drug Abuse Patient Records regulations: The Federal rules restrict any use of the information to criminally investigate or prosecute any alcohol or drug abuse patient.[facility] [place]In the event this information is protected by the Federal Confidentiality of Alcohol and Drug Abuse Patient Records regulations: The Federal rules restrict any use of the information to criminally investigate or prosecute any alcohol or drug abuse patient.[facility] [place]In the event this information is protected by the Federal Confidentiality of Alcohol and Drug Abuse Patient Records regulations: The Federal rules restrict any use of the information to criminally investigate or prosecute any alcohol or drug abuse patient.[facility]In the event this information is protected by the Federal Confidentiality of Alcohol and Drug Abuse Patient Records regulations: The Federal rules restrict any use of the information to criminally investigate or prosecute any alcohol or drug abuse patient.[facility] [place]In the event this information is protected by the Federal Confidentiality of Alcohol and Drug Abuse Patient Records regulations: The Federal rules restrict any use of the information to criminally investigate or prosecute any alcohol or drug abuse patient.[facility] [place]In the event this information is protected by the Federal Confidentiality of Alcohol and Drug Abuse Patient Records regulations: The Federal rules restrict any use of the information to criminally investigate or prosecute any alcohol or drug abuse patient.[facility] [place]In the event this information is protected by the Federal Confidentiality of Alcohol and Drug Abuse Patient Records regulations: The Federal rules restrict any use of the information to criminally investigate or prosecute any alcohol or drug abuse patient.[facility] [place]In the event this information is protected by the Federal Confidentiality of Alcohol and Drug Abuse Patient Records regulations: The Federal rules restrict any use of the information to criminally investigate or prosecute any alcohol or drug abuse patient.[facility] [place]In the event this information is protected by the Federal Confidentiality of Alcohol and Drug Abuse Patient Records regulations: The Federal rules restrict any use of the information to criminally investigate or prosecute any alcohol or drug abuse patient.[facility] [place]In the event this information is protected by the Federal Confidentiality of Alcohol and Drug Abuse Patient Records regulations: The Federal rules restrict any use of the information to criminally investigate or prosecute any alcohol or drug abuse patient.[facility]In the event this information is protected by the Federal Confidentiality of Alcohol and Drug Abuse Patient Records regulations: The Federal rules restrict any use of the information to criminally investigate or prosecute any alcohol or drug abuse patient.[facility] [place]In the event this information is protected by the Federal Confidentiality of Alcohol and Drug Abuse Patient Records regulations: The Federal rules restrict any use of the information to criminally investigate or prosecute any alcohol or drug abuse patient.[facility] [place]In the event this information is protected by the Federal Confidentiality of Alcohol and Drug Abuse Patient Records regulations: The Federal rules restrict any use of the information to criminally investigate or prosecute any alcohol or drug abuse patient.[facility] [place]In the event this information is protected by the Federal Confidentiality of Alcohol and Drug Abuse Patient Records regulations: The Federal rules restrict any use of the information to criminally investigate or prosecute any alcohol or drug abuse patient.[facility] [place]In the event this information is protected by the Federal Confidentiality of Alcohol and Drug Abuse Patient Records regulations: The Federal rules restrict any use of the information to criminally investigate or prosecute any alcohol or drug abuse patient.[facility] [place]In the event this information is protected by the Federal Confidentiality of Alcohol and Drug Abuse Patient Records regulations: The Federal rules restrict any use of the information to criminally investigate or prosecute any alcohol or drug abuse patient.[facility] [place]In the event this information is protected by the Federal Confidentiality of Alcohol and Drug Abuse Patient Records regulations: The Federal rules restrict any use of the information to criminally investigate or prosecute any alcohol or drug abuse patient.[facility] [place]In the event this information is protected by the Federal Confidentiality of Alcohol and Drug Abuse Patient Records regulations: The Federal rules restrict any use of the information to criminally investigate or prosecute any alcohol or drug abuse patient.[facility] [place]In the event this information is protected by the Federal Confidentiality of Alcohol and Drug Abuse Patient Records regulations: The Federal rules restrict any use of the information to criminally investigate or prosecute any alcohol or drug abuse patient.[facility] [place]In the event this information is protected by the Federal Confidentiality of Alcohol and Drug Abuse Patient Records regulations: The Federal rules restrict any use of the information to criminally investigate or prosecute any alcohol or drug abuse patient.[facility] [place]In the event this information is protected by the Federal Confidentiality of Alcohol and Drug Abuse Patient Records regulations: The Federal rules restrict any use of the information to criminally investigate or prosecute any alcohol or drug abuse patient.[facility] [place]In the event this information is protected by the Federal Confidentiality of Alcohol and Drug Abuse Patient Records regulations: The Federal rules restrict any use of the information to criminally investigate or prosecute any alcohol or drug abuse patient.[facility] [place]In the event this information is protected by the Federal Confidentiality of Alcohol and Drug Abuse Patient Records regulations: The Federal rules restrict any use of the information to criminally investigate or prosecute any alcohol or drug abuse patient.[facility] [place] the event this information is protected by the Federal Confidentiality of Alcohol and Drug Abuse Patient Records regulations: The Federal rules restrict any use of the information to criminally investigate or prosecute any alcohol or drug abuse patient.[facility] [place]In the event this information is protected by the Federal Confidentiality of Alcohol and Drug Abuse Patient Records regulations: The Federal rules restrict any use of the information to criminally investigate or prosecute any alcohol or drug abuse patient.[facility] [place]In the event this information is protected by the Federal Confidentiality of Alcohol and Drug Abuse Patient Records regulations: The Federal rules restrict any use of the information to criminally investigate or prosecute any alcohol or drug abuse patient.[facility] [place]In the event this information is protected by the Federal Confidentiality of Alcohol and Drug Abuse Patient Records regulations: The Federal rules restrict any use of the information to criminally investigate or prosecute any alcohol or drug abuse patient.[facility] [place] Reason for Visit (unrecogniz ed section and content) Reason Comments Follow Up Reason Comments Type 2 diabetes mellitus without retinop athy Reason Comments monkey pox Reason Comments Rash back Reason Comments Yearly Exam Reason Comments NEW PRIMARY CARE PHARMACY APPT Reason Comments Diabetes Reason Comments Headache Reason Comments Results Reason Comments Prior Auth/Trulicity Reason Onset Date Comments Refill Request 11/03/2022 Reason Comments Medication Authorization Reason Comments Blurred Vision Both Eyes Diabetes Reason Comments Insurance Authorization Reason Comments Prior Authorization Trulicity Reason Comments Cardiology Follow Up Reason Comments Results, Lab Reason Onset Date Comments Refill Request 02/05/2023 Reason Comments Omni Pod 5 Reason Comments Diabetes Self Management Education Reason Comments Omni Pod 5 orders Reason Comments Insulin pump start follow up Reason Comments Insulin pump start update Reason Onset Date Comments Population Health Navigation Outreach 04/09/2023 HCC List Reason Comments Chest Pain Reason Onset Date Comments Refill Request 05/05/2023 Reason Comments Cardiology Follow Up Reason Comments Refill Request Specialty Diagnoses / Procedures Referred By Contac t Referred To Contact MR IMAGING Diagnoses New daily persistent headache Procedures MRI BRAIN WO/W IVCON MRI BRAIN BRAIN STEM W/O W/[place] [address] [place] [address] [place] [address] Referral ID Status Reason Start Date Expiration Date V isits Requested Visits Authorized [id number] Closed Auto-Generate d Referral 08/10/2022 09/08/2022 1 1 Reason Comments Orders Reason Comments Palpitations Reason Comments New Pain Specialty Diagnoses / Procedures Referred By Contac t Referred To Contact Orthopedics Diagnoses Foot pain, right Procedures CONSULT PANEL TO ORTHOPAEDICS OFFICE/OUTPATIENT NEW HIGH MDM 60-74 MINUTES Gisselle Sprague PA-C [address] [place] [address] Referral ID Status Reason Start Date Expiration Date V isits Requested Visits Authorized [id number] Closed PCP Requested Referral 08/01/2023 07/31/2024 1 1 Care Teams (unrecognized sec tion and content) Hand Buffer Relationship Specialty [place] [address] [place] [address] PCP - General Family Practice 06/18/14 Keyanna Venegas MD [address] [place], [place] [id number] Physician Endocrinology 11/06/15 Tati Strauss, [facility] [address] [place] [id number] Pharmacist Pharmacy 04/25/19 Hand Buffer Relationship Specialty [place] [address] [place] [address] PCP - General Family Practice 06/18/14 Keyanna Venegas MD [address] [place] [address] Physician Endocrinology 11/06/15 [facility] [address] [place] [address] Pharmacist Pharmacy 04/25/19 Hand Buffer Relationship Specialty [place] [address] [place] [address] PCP - General Family Medicine 06/18/14 Keyanna Venegas MD [address] [place] [address] Physician Endocrinology 11/06/15 [facility] [address] [place] [address] Pharmacist Pharmacy 04/25/19 Hand Buffer Relationship Specialty [place] [address] [place] [address] PCP - General Family Medicine 06/18/14 Keyanna Venegas MD [address] [place] [address] Physician Endocrinology 11/06/15 [facility] [address] [place] [address] Pharmacist Pharmacy 04/25/19 Hand Buffer Relationship Specialty [place] [address] [place] [address] PCP - General Family Medicine 06/18/14 Keyanna Venegas MD [address] [place] [address] Physician Endocrinology 11/06/15 [facility] [address] [place] [address] Pharmacist Pharmacy 04/25/19 Hand Buffer Relationship Specialty [place] [address] [place] [address] PCP - General Family Medicine 06/18/14 Keyanna Venegas MD [address] [place] [address] Physician Endocrinology 11/06/15 [facility] [address] [place] [address] Pharmacist Pharmacy 04/25/19 Hand Buffer Relationship Specialty [place] [address] [place] [address] PCP - General Family Medicine 06/18/14 Keyanna Venegas MD [address] [employer] [place] [address] Physician Endocrinology 11/06/15 [facility] [address] [place] [address] Pharmacist Pharmacy 04/25/19 Hand Buffer Relationship Specialty [place] [address] [place] [address] PCP - General Family Medicine 06/18/14 Keyanna Venegas MD [address] [facility] [place] [address] Physician Endocrinology 11/06/15 [facility] [address] [place] [address] Pharmacist Pharmacy 04/25/19 Hand Buffer Relationship Specialty [place] [address] [place] [address] PCP - General Family Medicine 06/18/14 Keyanna Venegas MD [address] [place] [address] Physician Endocrinology 11/06/15 [facility] [address] [place] [address] Pharmacist Pharmacy 04/25/19 Hand Buffer Relationship Specialty Start Date End Date Opal Malloy [address] [place] [address] PCP - General Family Medicine 06/18/14 Keyanna Venegas MD [address] [place] [address] Physician Endocrinology 11/06/15 [facility] [address] [place] [address] Pharmacist Pharmacy 04/25/19 Hand Buffer Relationship Specialty Start [place] [address] [place] [address] PCP - General Family Medicine 06/18/14 Keyanna Venegas MD [address] [place] [address] Physician Endocrinology 11/06/15 [facility] [address] [place] [address] Pharmacist Pharmacy 04/25/19 Hand Buffer Relationship Specialty Start [place] [address] [place] [address] PCP - General Family Medicine 06/18/14 Keyanna Venegas MD [address] [facility] [place] [address] Physician Endocrinology 11/06/15 [facility] [address] [place] [address] Pharmacist Pharmacy 04/25/19 Hand Buffer Relationship Specialty [place] [address] [place] [address] PCP - General Family Medicine 06/18/14 Keyanna Venegas MD [address] [place] [address] Physician Endocrinology 11/06/15 [facility] [address] [place] [address] Pharmacist Pharmacy 04/25/19 Hand Buffer Relationship Specialty [place] [address] [place] [address] PCP - General Family Medicine 06/18/14 Keyanna Venegas MD [address] [place] [address] Physician Endocrinology 11/06/15 [facility] [address] [place] [address] Pharmacist Pharmacy 04/25/19 Hand Buffer Relationship Specialty [place] [address] [place] [address] PCP - General Family Medicine 06/18/14 Keyanna Venegas MD [address] [place] [address] Physician Endocrinology 11/06/15 [facility] [address] [place] [address] Pharmacist Pharmacy 04/25/19 Hand Buffer Relationship Specialty [place] [address] [place] [address] PCP - General Family Medicine 06/18/14 Keyanna Venegas MD [address] [place] [address] Physician Endocrinology 11/06/15 Tati Strauss, [facility] [address] [place] [address] Pharmacist Pharmacy 04/25/19 Hand Buffer Relationship Specialty [place] [address] [place] [address] PCP - General Family Medicine 06/18/14 Keyanna Venegas MD [address] [place] [address] Physician Endocrinology 11/06/15 [facility] [address] [place] [address] Pharmacist Pharmacy 04/25/19 Hand Buffer Relationship Specialty [place] [address] [place] [address] PCP - General Family Medicine 06/18/14 Keyanna Venegas MD [address] [place] [address] Physician Endocrinology 11/06/15 [facility] [address] [place] [address] Pharmacist Pharmacy 04/25/19 Hand Buffer Relationship Specialty [place] [address] [place] [address] PCP - General Family Medicine 06/18/14 Keyanna Venegas MD [address] [place] [address] Physician Endocrinology 11/06/15 Tati Strauss, [facility] [address] [place] [address] Pharmacist Pharmacy 04/25/19 Hand Buffer Relationship Specialty [place] [address] [place] [address] PCP - General Family Medicine 06/18/14 Keyanna Venegas MD [address] [place] [address] Physician Endocrinology 11/06/15 [facility] [address] [place] [address] Pharmacist Pharmacy 04/25/19 Hand Buffer Relationship Specialty [place] [address] [place] [address] PCP - General Family Medicine 06/18/14 Keyanna Venegas MD [address] [place] [address] Physician Endocrinology 11/06/15 [facility] [address] [place] [address] Pharmacist Pharmacy 04/25/19 Hand Buffer Relationship Specialty [place] [address] [place] [address] PCP - General Family Medicine 06/18/14 Keyanna Venegas MD [address] [place] [address] Physician Endocrinology 11/06/15 [facility] [address] [place] [address] Pharmacist Pharmacy 04/25/19 Hand Buffer Relationship Specialty [place] [address] [place] [address] PCP - General Family Medicine 06/18/14 Keyanna Venegas MD [address] [place] [address] Physician Endocrinology 11/06/15 [facility] [address] [place] [address] Pharmacist Pharmacy 04/25/19 Hand Buffer Relationship Specialty [place] [address] [place] [address] PCP - General Family Medicine 06/18/14 Keyanna Venegas MD [address] [place] [address] Physician Endocrinology 11/06/15 [facility] [address] [place] [address] Pharmacist Pharmacy 04/25/19 Hand Buffer Relationship Specialty [place] [address] [place] [address] PCP - General Family Medicine 06/18/14 Keyanna Venegas MD [address] [place] [address] Physician Endocrinology 11/06/15 [facility] [address] [place] [address] Pharmacist Pharmacy 04/25/19 Hand Buffer Relationship Specialty [place] [address] [place] [address] PCP - General Family Medicine 06/18/14 Keyanna Venegas MD [address] [place] [address] Physician Endocrinology 11/06/15 [facility] [address] [place] [address] Pharmacist Pharmacy 04/25/19 Hand Buffer Relationship Specialty Start Date End Date Opal Malloy ADO [address] [place] [address] PCP - General Family Medicine 06/18/14 Keyanna Venegas MD [address] [facility] [place] [address] Physician Endocrinology 11/06/15 [facility] [address] [place] [address] Pharmacist Pharmacy 04/25/19 Hand Buffer Relationship Specialty Start Date End Date Cindy Malloynathaniel Armstrong [address] [place] [address] PCP - General Family Medicine 06/18/14 Keyanna Venegas MD [address] [place] [address] Physician Endocrinology 11/06/15 [facility] [address] [place] [address] Pharmacist Pharmacy 04/25/19 Hand Buffer Relationship Specialty [place] [address] [place] [address] PCP - General Family Medicine 06/18/14 Keyanna Venegas MD [address] [employer] [employer] [facility] [place] [address] Physician Endocrinology 11/06/15 [facility] [address] [place] [address] Pharmacist Pharmacy 04/25/19 Hand Buffer Relationship Specialty [place] [address] [place] [address] PCP - General Family Medicine 06/18/14 Keyanna Venegas MD [address] [address] Physician Endocrinology 11/06/15 [facility] [address] [place] [address] Pharmacist Pharmacy 04/25/19 Hand Buffer Relationship Specialty [place] [address] [place] [address] PCP - General Family Medicine 06/18/14 Keyanna Venegas MD [address] [place] [address] Physician Endocrinology 11/06/15 [facility] [address] [place] [address] Pharmacist Pharmacy 04/25/19 Hand Buffer Relationship Specialty [place] [address] [place] [address] PCP - General Family Medicine 06/18/14 Keyanna Venegas MD [address] [place] [address] Physician Endocrinology 11/06/15 [facility] [address] [place] [address] Pharmacist Pharmacy 04/25/19 Hand Buffer Relationship Specialty [place] [address] [place] [address] PCP - General Family Medicine 06/18/14 Keyanna Venegas MD [address] [place] [address] Physician Endocrinology 11/06/15 [facility] [address] [place] [address] Pharmacist Pharmacy 04/25/19 Hand Buffer Relationship Specialty [place] [address] [place] [address] PCP - General Family Medicine 06/18/14 Keyanna Venegas MD [address] [facility] [address] Physician Endocrinology 11/06/15 [facility] [address] [place] [address] Pharmacist Pharmacy 04/25/19 Hand Buffer Relationship Specialty [place] [address] [place] [address] PCP - General Family Medicine 06/18/14 Keyanna Venegas MD [address] [place] [address] Physician Endocrinology 11/06/15 [facility] [address] [place] [address] Pharmacist Pharmacy 04/25/19 Hand Buffer Relationship Specialty [place] [address] [place] [address] PCP - General Family Medicine 06/18/14 Keyanna Venegas MD [address] [place] [address] Physician Endocrinology 11/06/15 [facility] [address] [place] [address] Pharmacist Pharmacy 04/25/19 Hand Buffer Relationship Specialty [place] [address] [place] [address] PCP - General Family Medicine 06/18/14 Keyanna Venegas MD [address] [place] [address] Physician Endocrinology 11/06/15 [facility] [address] [place] [address] Pharmacist Pharmacy 04/25/19 Hand Buffer Relationship Specialty [place] [address] [place] [address] PCP - General Family Medicine 06/18/14 Keyanna Venegas MD [address] [place] [address] Physician Endocrinology 11/06/15 [facility] [address] [place] [address] Pharmacist Pharmacy 04/25/19 Hand Buffer Relationship Specialty [place] [address] [place] [address] PCP - General Family Medicine 06/18/14 Keyanna Venegas MD [address] [place] [address] Physician Endocrinology 11/06/15 [facility] [address] [place] [address] Pharmacist Pharmacy 04/25/19 Hand Buffer Relationship Specialty [place] [address] [place] [address] PCP - General Family Medicine 06/18/14 Keyanna Venegas MD [address] [place] [address] Physician Endocrinology 11/06/15 [facility] [address] [place] [address] Pharmacist Pharmacy 04/25/19 Hand Buffer Relationship Specialty [place] [address] [place] [address] PCP - General Family Medicine 06/18/14 Keyanna Venegas MD [address] [place] [address] Physician Endocrinology 11/06/15 [facility] [address] [place] [address] Pharmacist Pharmacy 04/25/19 Hand Buffer Relationship Specialty [place] [address] [place] [address] PCP - General Family Medicine 06/18/14 Keyanna Venegas MD [address] [facility] [address] Physician Endocrinology 11/06/15 [facility] [address] [place] [address] Pharmacist Pharmacy 04/25/19 Hand Buffer Relationship Specialty [place] [address] [place] [address] PCP - General Family Medicine 06/18/14 Keyanna Venegas MD [address] [employer] [place] [address] Physician Endocrinology 11/06/15 [facility] [address] [place] [address] Pharmacist Pharmacy 04/25/19 Hand Buffer Relationship Specialty [place] [address] [place] [address] PCP - General Family Medicine 06/18/14 Keyanna Venegas MD [address] [place] [address] Physician Endocrinology 11/06/15 [facility] [address] [facility] [address] [place] [address] Pharmacist Pharmacy 04/25/19 Hand Buffer Relationship Specialty [place] [address] [place] [address] PCP - General Family Medicine 06/18/14 Keyanna Venegas MD [address] [facility] [place] [address] Physician Endocrinology 11/06/15 [facility] [address] [place] [address] Pharmacist Pharmacy 04/25/19 FOR RECORDS PERTAINING TO PATIENTS WHO ARE OR HAVE BEEN ENROLLED IN A CHEMICAL DEPENDENCY/SUBSTANCEABUSE PROGRAM, SOME INFORMATION MAY BE OMITTED. This clinical summary was aggregated from multiple sources. Caution should be exercised in using it in the provision of clinical care. This summary normalizes information from multiple sources, and as a consequence, information in this document may materially change the coding, format and clinical context of patient data. In addition, data may be omitted in some cases. CLINICAL DECISIONS SHOULD BE BASED ON THE PRIMARY CLINICAL RECORDS. [facility] [employer] [facility]. provides no warranty or guarantee of the accuracy or completeness of information in this document.
[2023-10-23] MEDS: HYDROcodone Bitartrate/Apap 5/325 Tablet PO (00:01)
== END 2023-10-23 00:05 | disposition home or self-care (01) ==
PROVIDERS: Emergency Provider Emergency Medicine; Visit Provider Emergency Medicine
DX: S62.212A Bennett's fracture, left hand, initial encounter for closed fracture (principal); S20.211A Contusion of right front wall of thorax, initial encounter; V87.8XXA Person injured in other specified noncollision transport accidents involving motor vehicle (traffic), initial encounter; Z79.899 Other long term (current) drug therapy
CPT/HCPCS: 29125; 71101; 73130; 99283